=== PATIENT | male | born 1955 | race Caucasian/White ===

== ENCOUNTER → 2017-09-18 | Outpatient (CLI) | payer SELFPAY ==
[2017-09-18 13:13] LABS: Blood Urea Nitrogen 22 mg/dL (9-20)
--- NOTE | 2017-09-20 17:48 | MR ---
EXAMINATION TYPE: MR brain wo/w con DATE OF EXAM: 09/18/2017 COMPARISON: 02/06/2016 HISTORY: 62-year-old male Memory loss, dizziness, Dementia with behavioral disturbance TECHNIQUE: Multiplanar, multisequence images of the brain and brainstem were acquired before and aft er administration of 10 mL IV Gadavist. Diffusion weighted imaging is performed. FINDINGS: No evidence for acute infarction, hemorrhage, mass, mass effect, midline shift, herniation, effacemen t of basal cisterns, or extra-axial fluid collection. The ventricles and sulci are age-appropriate mild generalized cerebral volume loss. Major intracranial flow voids are intact. T2/FLAIR weighted sequences show [id number] scattered burden of bright white matter change in t he subcortical and deep white matter of both cerebral hemispheres. There has been slight interval inc rease in the number of white matter foci as compared to 02/06/2016. Approximately 25 foci in the right and approximately 20 foci on the left. There are perivascular spaces are seen throughout. Midline structures demonstrate normal morphology. The craniocervical junction is normal. Post contrast images demonstrate no evidence of pathologic enhancement. Dural venous sinuses are pat ent. The visualized sinuses are clear and the globes are intact. IMPRESSION: 1. No acute intracranial abnormality seen. Similar mild generalized atrophy. 2. Nonspecific, chronic T2 bright white matter change in both cerebral hemispheres with mild to moder ate overall burden. This shows slight interval progression from 02/06/2016 likely relating to chronic s mall vessel ischemic disease.
== END | disposition home or self-care (01) ==
LOC: RADMRIMAIN 12:36
PROVIDERS: ATTEND Family Medicine
DX: G31.9 Degenerative disease of nervous system, unspecified (principal); R90.89 Other abnormal findings on diagnostic imaging of central nervous system
CPT/HCPCS: 82565; 84520; 70553; 36415; A9581

== ENCOUNTER → 2017-10-10 | Outpatient (CLI) | payer SELFPAY ==
[2017-10-10 10:49] LABS: Prothrombin Time 9.9 sec (9.0-12.0)
[2017-10-10 11:18] LABS: T4, Free (Free Thyroxine) 1.12 ng/dL (0.78-2.19)
[2017-10-10 11:24] LABS: Partial Thromboplastin Time 21.3 sec (22.0-30.0)
[2017-10-10 16:47] LABS: Vitamin D 25 Hydroxy 21.6 ng/mL (30.0-100.0)
== END | disposition home or self-care (01) ==
LOC: LABWHC1 10:10
PROVIDERS: ATTEND Psychiatry & Neurology Neurology
DX: R41.3 Other amnesia (principal); R53.83 Other fatigue; R53.1 Weakness
CPT/HCPCS: 36415; 82306; 82550; 82607; 84207; 84439; 84443; 85610; 85652; 85730; 86038; 86592; 86618

== ENCOUNTER → 2019-12-21 | Outpatient (CLI) | payer MEDICARE ==
[2019-12-21 16:18] LABS: Albumin 4.5 g/dL (3.5-5.0); Calcium 9.7 mg/dL (8.4-10.2); Potassium 3.7 mmol/L (3.5-5.1); Total Bilirubin 0.5 mg/dL (0.2-1.3); Total Protein 7.5 g/dL (6.3-8.2)
--- NOTE | 2019-12-21 17:26 | CT ---
EXAMINATION TYPE: CT brain wo/w con DATE OF EXAM: 12/21/2019 COMPARISON: 02/28/2015 INDICATION: Frequent falls. DLP: 2220 mGycm, Automated exposure control for dose reduction was used. CONTRAST: None CT of the brain is performed utilizing 3 mm thick sections through the posterior fossa and 3 mm thick sections through the remaining calvarium. Study is performed within 24 hours of arrival to the hosp ital. No abnormal hyperdensity is present to suggest an acute intracranial hemorrhage. No mass lesion is evident. No acute infarcts are evident. Subtle deep white matter chronic appearing microvascular ischemic alarcon ges present. Ventricles and sulci are appropriate for the patient age. Paranasal sinuses and mastoid air cells within the [id number] are clear. IMPRESSIONS: 1. No acute intracranial process.
== END | disposition home or self-care (01) ==
LOC: RADCTMAIN 15:32
PROVIDERS: ATTEND Family Medicine
DX: R29.6 Repeated falls (principal)
CPT/HCPCS: 80053; 70470; 36415; Q9967

== ENCOUNTER → 2020-02-25 | Outpatient (CLI) | payer MEDICARE ==
--- NOTE | 2020-02-25 16:22 | US ---
EXAMINATION TYPE: US carotid duplex BILAT DATE OF EXAM: 02/25/2020 COMPARISON: NONE CLINICAL HISTORY: R42 Dizziness. EXAM MEASUREMENTS: RIGHT: Peak Systolic Velocity (PSV) cm/sec ----- Right CCA: 65.1 ----- Right ICA: 57.3 ----- Right ECA: 57.0 ICA/CCA ratio: 0.9 RIGHT: End Diastole cm/sec ----- Right CCA: 20.6 ----- Right ICA: 21.9 ----- Right ECA: 17.5 LEFT: Peak Systolic Velocity (PSV) cm/sec ----- Left CCA: 51.1 ----- Left ICA: 62.0 ----- Left ECA: 78.2 ICA/CCA ratio: 1.2 LEFT: End Diastole cm/sec ----- Left CCA: 20.6 ----- Left ICA: 28.6 ----- Left ECA: 26.7 VERTEBRALS (direction of flow): Right Vertebral: Antegrade Left Vertebral: Antegrade Rhythm: Normal Moderate atherosclerotic changes with no significant velocity elevations. IMPRESSION: No evidence for hemodynamically significant stenosis. Criteria for Assigning % of Stenosis / Diameter reduction (Estimation based on the indirect measurements of the internal carotid artery velocities (ICA PSV). 1. Normal (no stenosis)=ICA PSV < 125 cm/s: ratio < 2.0: ICA EDV<40 cm/s. 2. Less than 50% stenosis=ICA PSV < 125 cm/s: ratio < 2.0: ICA EDV<40 cm/s. 3. 50 to 69% stenosis=ICA PSV of 125 to 230 cm/s: ration 2.0 ? 4.0: ICA EDV 40-100 cm/s. 4. Greater than 70% stenosis to near occlusion= ICA PSV > 230 cm/s: ratio > 4.0: ICA EDV > 100 cm/s. 5. Near occlusion= ICA PSV velocities may be low or undetectable: variable ratio and ICA EDV. 6. Total occlusion=unable to detect flow.
== END | disposition home or self-care (01) ==
LOC: RADUSMAIN 14:50
PROVIDERS: ATTEND Family Medicine
DX: R42 Dizziness and giddiness (principal)
CPT/HCPCS: 93880

== ENCOUNTER 2020-09-11 19:39 | Inpatient (IN) | payer MEDICARE ==
[2020-09-11] MEDS ORDERED: ACETAMINOPHEN TAB 500 MG TAB PO STA (19:54)
[2020-09-11] MEDS ORDERED: DEXAMETHASONE SOD PHOSPHATE 10 MG/ML 1 ML VIAL IV STA (19:57)
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
[2020-09-11 20:20] LABS: Basophils % (A) 1 %; Eosinophils # (A) 0.1 k/uL (0-0.7); Eosinophils % (A) 2 %; HCT 40.2 % (39.0-53.0); Lymphocytes # (A) 0.6 k/uL (1.0-4.8); Lymphocytes % (A) 15 %; MCHC 34.8 g/dL (31.0-37.0); MCV 86.3 fL (80.0-100.0); Mean Platelet Volume 7.7; Monocytes # (A) 0.3 k/uL (0-1.0); Monocytes % (A) 7 %; Neutrophils # (A) 2.8 k/uL (1.3-7.7); Neutrophils % (A) 73 %; Platelet Count 366 k/uL (150-450); RBC 4.66 m/uL (4.30-5.90); RDW 13.2 % (11.5-15.5); WBC 3.9 k/uL (3.8-10.6)
[2020-09-11 20:35] LABS: ALT 28 U/L (4-49); AST 33 U/L (17-59); African American GFR (CKD) >90 (>60 ml/min/1.73 sqM); Albumin 3.4 g/dL (3.5-5.0); Alkaline Phosphatase 109 U/L (38-126); Anion Gap 9 mmol/L; Blood Urea Nitrogen 24 mg/dL (9-20); Calcium 8.8 mg/dL (8.4-10.2); Carbon Dioxide 27 mmol/L (22-30); Chloride 98 mmol/L (98-107); Glucose 312 mg/dL (74-99); Magnesium 1.9 mg/dL (1.6-2.3); Non-African American GFR(CKD) 90 (>60 ml/min/1.73 sqM); Potassium 3.6 mmol/L (3.5-5.1); Sodium 134 mmol/L (137-145); Total Bilirubin 0.7 mg/dL (0.2-1.3); Total Protein 6.5 g/dL (6.3-8.2)
[2020-09-11 20:43] LABS: INR 1.2 (<1.2); Partial Thromboplastin Time 22.5 sec (22.0-30.0); Prothrombin Time 12.8 sec (9.0-12.0)
[2020-09-11 20:50] LABS: D-Dimer 4.93 mg/L FEU (<0.60)
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
--- NOTE | 2020-09-11 22:04 | CT ---
EXAMINATION TYPE: CT chest angio for PE DATE OF EXAM: 09/11/2020 COMPARISON: None. HISTORY: Shortness of breath, +covid. CT DLP: 452.9 mGycm Automated exposure control for dose reduction was used. CONTRAST: CT Chest for pulmonary embolism performed with with IV Contrast, patient injected with 78ml mL of Iso anahi 300. FINDINGS: LUNGS: The lungs are grossly clear, there is no concerning parenchymal mass or nodule identified. T here is no pleural effusion or pneumothorax seen. Patchy bilateral airspace opacities are noted repr esenting multifocal pneumonia. The tracheobronchial tree is patent. MEDIASTINUM: There is satisfactory enhancement of the pulmonary artery and its branches, there is no CT evidence for pulmonary embolism. There are no greater than 1 cm hilar or mediastinal lymph nodes. No pericardial effusion is seen. OTHER: No additional significant abnormality is seen. IMPRESSION: Study is limited for evaluation of pulmonary embolism due to motion. No central or proxim al segmental filling defects are seen. Multifocal airspace opacities representing, multifocal viral p neumonia.
[2020-09-11] MEDS ORDERED: ONDANSETRON 4 MG/2 ML VIAL IVP PRN (22:25)
[2020-09-11] MEDS ORDERED: NALOXONE 0.4 MG/ML 1 ML VIAL IV PRN (22:25)
[2020-09-11] MEDS ORDERED: ACETAMINOPHEN TAB 325 MG TAB PO PRN (22:25)
[2020-09-11] MEDS ORDERED: HYDROcodone/APAP 10-325MG 1 EACH TAB PO PRN (22:28)
[2020-09-12 08:23] LABS: Glucose,Whole Blood 366 mg/dL (75-99)
[2020-09-12] MEDS: INSULIN ASPART (NovoLOG) 100 UNIT/ML VIAL SQ SCH ×4 (08:43→22:05)
[2020-09-12] MEDS: amLODIPine 10 MG TAB PO SCH (08:44)
[2020-09-12] MEDS: CITALOPRAM HYDROBROMIDE 20 MG TAB PO SCH (08:44)
[2020-09-12] MEDS: CHOLECALCIFEROL 25 MCG (1000 IU) TABLET PO SCH (08:44)
[2020-09-12] MEDS: metFORMIN 500 MG TAB PO SCH (08:45)
[2020-09-12] MEDS: DEXAMETHASONE SOD PHOSPHATE 10 MG/ML 1 ML VIAL IV SCH (08:45)
[2020-09-12] MEDS: diazePAM 5 MG TAB PO SCH ×3 (08:45→22:05)
[2020-09-12] MEDS: FUROSEMIDE 40 MG TAB PO SCH (08:45)
[2020-09-12] MEDS: ZINC SULFATE 220 MG CAP PO SCH (08:46)
[2020-09-12] MEDS ORDERED: ENOXAPARIN 40 MG/0.4 ML SYRINGE SQ SCH (09:00)
[2020-09-12] MEDS: traZODone HCL 100 MG TAB PO SCH ×2 (09:01→22:05)
[2020-09-12] MEDS: LISINOPRIL-HCTZ 20-12.5 MG 1 EACH TAB PO SCH (09:02)
[2020-09-12 12:14] LABS: Glucose,Whole Blood 401 mg/dL (75-99)
[2020-09-12 12:54] LABS: Glucose,Whole Blood 348 mg/dL (75-99)
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
[2020-09-12 17:34] LABS: Glucose,Whole Blood 289 mg/dL (75-99)
[2020-09-12] MEDS: AZITHROMYCIN 500 MG TAB PO SCH (17:53)
[2020-09-12 21:23] LABS: Glucose,Whole Blood 342 mg/dL (75-99)
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
[2020-09-12] MEDS: ESCITALOPRAM 10 MG TAB PO SCH (22:05)
[2020-09-12] MEDS: ENOXAPARIN 40 MG/0.4 ML SYRINGE SQ SCH (22:05)
--- NOTE | 2020-09-13 00:06 | CONS ---
CONSULTATION DATE OF SERVICE: 09/12/2020 REASON FOR CONSULTATION: Pneumonia. HISTORY OF PRESENT ILLNESS: The patient is a 65-year-old male whose is currently in the ICU undergoing treatment for COVID-19 infection. This patient apparently tested positive for COVID-19 last week. As the patient's was positive for it, the patient himself had no symptoms at that point. The patient was brought into the ER last night for evaluation of shortness of breath and a low-grade fever. The patient denies having any chest pain, shortness of breath on minimal exertion. The patient did have minimal cough, not bringing up any sputum. No URI symptoms. No nausea, no vomiting. No abdominal pain or diarrhea. On presentation to the hospital the patient did have a low- grade fever of 100.5. The patient was hypoxic with oxygen saturations of 87% on room air. The patient did have a normal white count with lymphopenia. He did have elevated D-dimer. Kidney function was normal. Liver enzymes were normal. CRP was 163. Procalcitonin 5.64. Bryan PCR came back negative. The patient did have a CT angiogram that was negative for PE and did have evidence of multifocal viral pneumonia. The patient has been admitted to the hospital. Infectious Disease was consulted for further management of antibiotic therapy. REVIEW OF SYSTEMS: Positive points have been mentioned in HPI. Rest of the systems are negative. PAST MEDICAL HISTORY: Coronary artery disease, diabetes mellitus, hypertension, hyperlipidemia. PAST SURGICAL HISTORY: Heart catheterization, left knee replacement, vasectomy. SOCIAL HISTORY: Remote history of smoking. Occasionally drinks. No drug use. FAMILY HISTORY: Father with history of Parkinson's disease. Mother with history of dementia. ALLERGIES: NO KNOWN DRUG ALLERGIES. MEDICATIONS: The patient is currently on Tylenol, Mcguffey, Norvasc, Rocephin, Zithromax, Celexa, dexamethasone, diazepam, Lovenox, Lexapro, Lasix, NovoLog, Glucophage, Narcan, Zofran, Toradol. PHYSICAL EXAMINATION: Blood pressure 107/74 with a pulse of 84. Temperature is 98.5, T-max 100.5. He is 90% on 3 L nasal cannula. General description is an elderly male lying in bed in no distress. No tachypnea or accessory muscle of respiration use. HEENT EXAMINATION: No pallor or scleral icterus. Oral mucosa membrane dry. NECK: Trachea is central. No thyromegaly. LUNGS: Unlabored breathing. Decreased intensity of breath sounds. No wheeze or crackle. HEART: S1, S2. Regular rate and rhythm. ABDOMEN: Soft. No tenderness. EXTREMITIES: No edema of the feet. SKIN EXAMINATION: No rash or mass palpable. Neurologically the patient is awake, alert, oriented x3. Mood and affect normal. LABS: Hemoglobin is 14, white count 3.9, BUN of 24, creatinine 0.86. CRP is elevated. report mentioned above. DIAGNOSTIC IMPRESSION AND PLAN: Patient admitted to hospital with increasing shortness of breath in this patient who did have a fever, hypoxemia with evidence of multifocal pneumonia in this patient whose is currently sick with COVID-19 infection, likely representing COVID-19; clinically suspicious for secondary bacterial pneumonia less likely but not entirely excluded in view of elevated procalcitonin. PLAN: 1. We will obtain sputum for Gram stain and culture and check urine for antigen. 2. The patient is currently covered with Rocephin and Zithromax; to continue. 3. Continue with Lovenox, dexamethasone and zinc. However, the patient will benefit from remdesivir. Will discuss further with the pulmonary team. 4. Will follow clinical condition and further adjust medication if needed. Thank you for this consultation. Will follow this patient along with you. MMHETALL / ROXANEN: [id number] /
[2020-09-13 05:32] LABS: Appearance,Urine Clear (Clear); Bilirubin,Urine Negative (Negative); Blood,Urine Negative (Negative); Color,Urine Yellow; Glucose,Urine (UA) 3+ (Negative); Ketones,Urine Negative (Negative); Leukocyte Esterase,Urine Negative (Negative); Nitrite,Urine Negative (Negative); Protein,Urine Trace (Negative); Specific Gravity,Urine 1.021 (1.001-1.035); Urobilinogen,Urine <2.0 mg/dL (<2.0)
[2020-09-13 07:28] LABS: Glucose,Whole Blood 384 mg/dL (75-99)
[2020-09-13] MEDS: INSULIN ASPART (NovoLOG) 100 UNIT/ML VIAL SQ SCH ×4 (08:09→20:43)
[2020-09-13] MEDS: LISINOPRIL-HCTZ 20-12.5 MG 1 EACH TAB PO SCH (08:10)
[2020-09-13] MEDS: traZODone HCL 100 MG TAB PO SCH ×2 (08:10→20:44)
[2020-09-13] MEDS: FUROSEMIDE 40 MG TAB PO SCH (08:10)
[2020-09-13] MEDS: ZINC SULFATE 220 MG CAP PO SCH (08:10)
[2020-09-13] MEDS: CHOLECALCIFEROL 25 MCG (1000 IU) TABLET PO SCH (08:11)
[2020-09-13] MEDS: amLODIPine 10 MG TAB PO SCH (08:11)
[2020-09-13] MEDS: diazePAM 5 MG TAB PO SCH ×3 (08:11→20:44)
[2020-09-13] MEDS: metFORMIN 500 MG TAB PO SCH (08:11)
[2020-09-13] MEDS: ENOXAPARIN 40 MG/0.4 ML SYRINGE SQ SCH ×2 (08:11→20:43)
[2020-09-13] MEDS: DEXAMETHASONE SOD PHOSPHATE 10 MG/ML 1 ML VIAL IV SCH (08:11)
[2020-09-13] MEDS: CITALOPRAM HYDROBROMIDE 20 MG TAB PO SCH (08:12)
[2020-09-13 11:10] LABS: Albumin 3.6 g/dL (3.80-4.90); Albumin/Globulin Ratio 1.5 (1.60-3.17); Anion Gap 11.6 mmol/L (4.00-12.00); BUN/Creat Ratio 32.67 Ratio (12.00-20.00); C Reactive Protein 6.4 mg/dL (0.0-0.8); Calcium 9.1 mg/dL (8.7-10.3); Carbon Dioxide 28.4 mmol/L (21.6-31.8); Globulin 2.4 g/dL (1.6-3.3); Non-African American GFR(CKD) 47.5 (60.0-200.0); Potassium 4.1 mmol/L (3.5-5.5); Total Bilirubin 0.4 mg/dL (0.3-1.2)
[2020-09-13 11:20] LABS: Ferritin 873.5 ng/mL (22.0-322.0)
[2020-09-13 11:45] LABS: Glucose,Whole Blood 403 mg/dL (75-99)
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
[2020-09-13 15:24] VITALS: BMI 31.0
--- NOTE | 2020-09-13 15:41 | US ---
EXAMINATION TYPE: US venous doppler duplex LE BI DATE OF EXAM: 09/13/2020 3:30 PM COMPARISON: NONE CLINICAL HISTORY 65-year-old male elevated D-dimer SIDE PERFORMED: Bilateral TECHNIQUE: The lower extremity deep venous system is examined utilizing real time linear array sonog kayleen with graded compression, doppler sonography and color-flow sonography. FINDINGS: VESSELS IMAGED: Common Femoral Vein Deep Femoral Vein Greater Saphenous Vein * Femoral Vein Popliteal Vein Small Saphenous Vein * Proximal Calf Veins (* superficial vessels) Right Leg: Negative for DVT Left Leg: Negative for DVT IMPRESSION: No evidence for DVT within the bilateral lower extremities imaged from the groin to the upper calves.
[2020-09-13 16:44] LABS: Glucose,Whole Blood 270 mg/dL (75-99)
[2020-09-13] MEDS: AZITHROMYCIN 500 MG TAB PO SCH (17:12)
[2020-09-13 20:26] LABS: Glucose,Whole Blood 237 mg/dL (75-99)
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
[2020-09-13] MEDS: ESCITALOPRAM 10 MG TAB PO SCH (20:43)
[2020-09-13] MEDS ORDERED: INSULIN DETEMIR (LEVEMIR) 100 UNIT/ML SYR SQ SCH (21:00)
--- NOTE | 2020-09-14 01:52 | PN ---
PROGRESS NOTE DATE OF SERVICE: 09/13/2020 REASON FOR FOLLOWUP: Pneumonia. INTERVAL HISTORY: The patient is currently afebrile. The patient is breathing more comfortably. The patient denies having any chest pain or shortness of breath. Occasional cough. No abdominal pain. No diarrhea. PHYSICAL EXAMINATION: Blood pressure 115/62 with a pulse of 69, temperature 98.6. He is 97% on 2 L nasal cannula. General description is an elderly male lying in bed in no distress. Respiratory system: Unlabored breathing with decreased intensity breath sounds. No wheeze. Heart S1, S2. Regular rate and rhythm. ABDOMEN: Soft, no tenderness. LABS: BUN of 49, creatinine 1.5. D. dimer 12.32. DIAGNOSTIC IMPRESSION/PLAN: Patient admitted to the hospital with increasing shortness of breath and cough with evidence of pneumonia. Patient seemed to have clinically responded. Currently on Rocephin and Zithromax, Dexamethasone and Lovenox to continue while monitoring clinical course closely. Continue supportive care. MMODL / IJN: [id number] /
[2020-09-14 06:54] LABS: Glucose,Whole Blood 254 mg/dL (75-99)
[2020-09-14] MEDS: ENOXAPARIN 40 MG/0.4 ML SYRINGE SQ SCH (09:22)
[2020-09-14] MEDS: DEXAMETHASONE SOD PHOSPHATE 10 MG/ML 1 ML VIAL IV SCH (09:22)
[2020-09-14] MEDS: metFORMIN 500 MG TAB PO SCH (09:22)
[2020-09-14] MEDS: FUROSEMIDE 40 MG TAB PO SCH (09:22)
[2020-09-14] MEDS: CHOLECALCIFEROL 25 MCG (1000 IU) TABLET PO SCH (09:23)
[2020-09-14] MEDS: INSULIN ASPART (NovoLOG) 100 UNIT/ML VIAL SQ SCH ×3 (09:23→17:27)
[2020-09-14] MEDS: diazePAM 5 MG TAB PO SCH ×2 (09:23→16:04)
[2020-09-14] MEDS: CITALOPRAM HYDROBROMIDE 20 MG TAB PO SCH (09:23)
[2020-09-14] MEDS: traZODone HCL 100 MG TAB PO SCH (09:23)
[2020-09-14] MEDS: amLODIPine 10 MG TAB PO SCH (09:23)
[2020-09-14] MEDS: LISINOPRIL-HCTZ 20-12.5 MG 1 EACH TAB PO SCH (09:23)
[2020-09-14] MEDS: ZINC SULFATE 220 MG CAP PO SCH (09:23)
[2020-09-14 09:58] VITALS: RESP 18
[2020-09-14 11:56] LABS: Glucose,Whole Blood 195 mg/dL (75-99)
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
[2020-09-14] MEDS: AZITHROMYCIN 500 MG TAB PO SCH (16:04)
[2020-09-14 16:56] LABS: Glucose,Whole Blood 316 mg/dL (75-99)
[2020-09-14 18:33] VITALS: BP 112/74; PULSE 89; TEMP 98
--- NOTE | 2020-09-14 20:02 | PN ---
PROGRESS NOTE DATE OF SERVICE: 09/14/2020 REASON FOR FOLLOWUP: Pneumonia. INTERVAL HISTORY: The patient is currently afebrile. The patient is feeling better, breathing comfortably. The patient denies having any chest pain or shortness of breath. Occasional cough. No abdominal pain or diarrhea. PHYSICAL EXAMINATION: Blood pressure 113/73 with a pulse of 76, temperature 98.2. He is 90% on 3 L nasal cannula. General description is an elderly male lying in bed in no distress. RESPIRATORY SYSTEM: Unlabored breathing with decreased breath sounds at the base. No wheeze. HEART: S1, S2. Regular rate and rhythm. ABDOMEN: Soft. No tenderness. LABS: No new labs have been obtained today. DIAGNOSTIC IMPRESSION AND PLAN: Patient presented to hospital with shortness of breath and cough in this patient who did have evidence of pneumonia with a recent outpatient COVID test positive. However, the test here has been negative. Being treated for possible pneumonia. On Rocephin and Zithromax hypoxic and needs to be monitored closely. Continue with supportive care. MMODL / IJN: [id number] /
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
== END 2020-09-14 19:09 | disposition left against medical advice (07) | DRG 177 ==
LOC: EC 19:39 → 4SSUR 23:22
PROVIDERS: ADMIT Hospitalist; ATTEND Hospitalist
DX: U07.1 COVID-19 (principal); J12.82 Pneumonia due to coronavirus disease 2019; J96.01 Acute respiratory failure with hypoxia; J15.9 Unspecified bacterial pneumonia; E11.65 Type 2 diabetes mellitus with hyperglycemia; D72.810 Lymphocytopenia; I25.10 Atherosclerotic heart disease of native coronary artery without angina pectoris; E78.5 Hyperlipidemia, unspecified; I10 Essential (primary) hypertension; H91.90 Unspecified hearing loss, unspecified ear; M51.36 Other intervertebral disc degeneration, lumbar region; M54.5 Low back pain; G89.29 Other chronic pain; M19.90 Unspecified osteoarthritis, unspecified site; F32.9 Major depressive disorder, single episode, unspecified; F41.9 Anxiety disorder, unspecified; Z98.890 Other specified postprocedural states; Z79.899 Other long term (current) drug therapy; Z87.891 Personal history of nicotine dependence; Z87.828 Personal history of other (healed) physical injury and trauma; Z82.0 Family history of epilepsy and other diseases of the nervous system; Z81.8 Family history of other mental and behavioral disorders; Z99.81 Dependence on supplemental oxygen; Z79.4 Long term (current) use of insulin
CPT/HCPCS: 36415; 71046; 71275; 80053; 81003; 82728; 83605; 83615; 83735; 84145; 85025; 85379; 85610; 85730; 86140; 87449; 87635; 93005; 93970; 96372; 96374; 99285

== ENCOUNTER → 2020-12-12 | Outpatient (CLI) | payer MEDICARE ==
--- NOTE | 2020-12-12 09:30 | CT ---
EXAMINATION TYPE: CT facial bones wo con DATE OF EXAM: 12/12/2020 COMPARISON: None HISTORY: 65-year-old male, R68.84, with left jaw pain CT DLP: 596.5 mGycm Automated exposure control for dose reduction was used. TECHNIQUE: CT scanning of the facial bones without contrast. Coronal and sagittal reconstructions per formed. FINDINGS: The submandibular and parotid glands appear satisfactory. Punctate calcifications in the left pelvis seen tonsils suggest sequela of prior infection. Mild mucosal thickening ethmoid air cells. Trace mucosal thickening floor of the left maxillary sinus . Slight leftward nasal septal deviation. Osteomeatal complexes are patent. No air-fluid levels in th e sinuses. Mastoid air cells and middle ear cavities are well pneumatized. Visualized intracranial structures show no gross adenopathy. The TMJs are intact. The patient is edentulous. No erosive change or acute or healing fracture or other specific bony abno rmality is identified with particular attention to the left side of the mandible. Prominent 6 mm submandibular space lymph node noted on either side. IMPRESSION: THE PATIENT IS EDENTULOUS. THERE IS MILD CHRONIC SINUS DISEASE INVOLVING THE ETHMOID AIR CELLS AND LE FT MAXILLARY SINUS. SLIGHT LEFTWARD NASAL SEPTAL DEVIATION. OTHERWISE, NO SPECIFIC ABNORMALITY SEEN.
== END | disposition home or self-care (01) ==
LOC: RADCTMAIN 06:59
PROVIDERS: ATTEND Family Medicine
DX: J32.8 Other chronic sinusitis (principal); J34.2 Deviated nasal septum
CPT/HCPCS: 70486

== ENCOUNTER 2020-12-19 11:07 | Emergency (ER) | payer MEDICARE ==
[2020-12-19 11:20] VITALS: BP 126/89; PULSE 92; RESP 18; TEMP 97.9
[2020-12-19] MEDS ORDERED: SODIUM CHLORIDE 0.9% 1,000 ML IV STA (11:55)
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
--- NOTE | 2020-12-19 12:38 | XR ---
EXAMINATION TYPE: XR ribs LT w pa chest xray DATE OF EXAM: 12/19/2020 CLINICAL HISTORY: Pain TECHNIQUE: Single frontal view of the chest and 4 views of the left ribs is obtained. COMPARISON: None FINDINGS: Coarsened interstitium. Limited inspiration heart size normal. No focal pneumonia or pneumo thorax. Arthropathy of the shoulders. Rib cage intact. IMPRESSION: 1. No acute displaced rib fracture. 2. Correlate for chronic interstitial lung disease.
[2020-12-19] MEDS ORDERED: ACET/COD 300 MG/30 MG STARTER PACK 6 TAB BTL PO STA (12:43)
== END 2020-12-19 12:57 | disposition home or self-care (01) ==
LOC: EC 11:07
DX: S20.212A Contusion of left front wall of thorax, initial encounter (principal); R10.9 Unspecified abdominal pain; I10 Essential (primary) hypertension; E11.9 Type 2 diabetes mellitus without complications; H91.90 Unspecified hearing loss, unspecified ear; Z87.891 Personal history of nicotine dependence; Z79.899 Other long term (current) drug therapy; Z79.4 Long term (current) use of insulin; W19.XXXA Unspecified fall, initial encounter
CPT/HCPCS: 99284

== ENCOUNTER → 2021-09-20 | Outpatient (CLI) | payer MEDICARE ==
[2021-09-20 11:04] LABS: Partial Thromboplastin Time 26.1 sec (22.0-30.0); Prothrombin Time 10.8 sec (9.0-12.0)
[2021-09-20 11:35] LABS: Appearance,Urine Clear (Clear); Bilirubin,Urine Negative (Negative); Blood,Urine Moderate (Negative); Color,Urine Yellow; Glucose,Urine (UA) Negative (Negative); Hyaline Casts,Urine 26 /lpf (0-2); Ketones,Urine Negative (Negative); Leukocyte Esterase,Urine Negative (Negative); Mucus,Urine Few /hpf; Nitrite,Urine Negative (Negative); PH, Urine 5.5 (5.0-8.0); Protein,Urine Trace (Negative); RBC,Urine 81 /hpf (0-5); Specific Gravity,Urine 1.034 (1.001-1.035); Squamous Epithelial Cell,Urine 1 /hpf (0-4); Urobilinogen,Urine <2.0 mg/dL (<2.0); WBC,Urine 3 /hpf (0-5)
[2021-09-20 15:26] LABS: HCT 45.1 % (39.6-50.0); HGB 14.6 g/dL (13.0-17.0); MCH 30.8 pg (27.0-32.0); MCHC 32.4 g/dL (32.0-37.0); MCV 95.1 fL (80.0-97.0); Mean Platelet Volume 10.8 fL (9.5-12.2); NRBC Per 100 WBC 0 /100 WBCS (0.0-0.0); Platelet Count 219 X 10*3/uL (140-440); RBC 4.74 X 10*6/uL (4.40-5.60); RDW 13.7 % (11.5-14.5); WBC 5.65 X 10*3/uL (4.50-10.00)
[2021-09-20 15:39] LABS: African American GFR (CKD) 71.6 (60.0-200.0); Albumin 4.4 g/dL (3.8-4.9); Albumin/Globulin Ratio 1.52 (1.60-3.17); Anion Gap 11.3 mmol/L (10.00-18.00); BUN/Creat Ratio 13.92 Ratio (12.00-20.00); Blood Urea Nitrogen 16.7 mg/dL (9.0-27.0); Calcium 9.6 mg/dL (8.7-10.3); Carbon Dioxide 22.7 mmol/L (20.0-27.5); Globulin 2.9 g/dL (1.6-3.3); Non-African American GFR(CKD) 61.8 (60.0-200.0); Potassium 4.2 mmol/L (3.5-5.5); Total Bilirubin 0.5 mg/dL (0.30-1.20); Total Protein 7.3 g/dL (6.2-8.2)
== END | disposition home or self-care (01) ==
LOC: LABPAT 09:54
PROVIDERS: ATTEND Orthopaedic Surgery
DX: Z01.812 Encounter for preprocedural laboratory examination (principal); M17.11 Unilateral primary osteoarthritis, right knee
CPT/HCPCS: 80053; 81001; 85027; 85610; 85730; 87070; 93005

== ENCOUNTER → 2021-09-20 | Outpatient (CLI) | payer MEDICARE | END | disposition home or self-care (01) | LOC: LABPAT 09:51 | PROVIDERS: ATTEND Orthopaedic Surgery | DX: Z53.9 Procedure and treatment not carried out, unspecified reason (principal); Z01.818 Encounter for other preprocedural examination ==

== ENCOUNTER → 2021-10-26 | Outpatient (CLI) | payer MEDICARE | END | disposition home or self-care (01) | LOC: LABPAT 11:41 | PROVIDERS: ATTEND Orthopaedic Surgery | DX: Z01.812 Encounter for preprocedural laboratory examination (principal) | CPT/HCPCS: 87070 ==

== ENCOUNTER 2021-11-05 10:50 | Day surgery (SDC) | payer MEDICARE ==
[2021-11-02 11:32] VITALS: BMI 34.0
[~2021-11-05 10:50] MED LIST: ACETAMINOPHEN TAB 500 MG TAB PO PRN; DEXAMETHASONE SOD PHOSPHATE 4 MG/ML 1 ML VIAL IV ONE; HYDROmorphone 0.5 MG/0.5 ML SYRINGE IVP PRN; LIDOCAINE 1% (10MG/ML) FOR IV START INTRADERMA PRN; MELOXICAM 7.5 MG TAB PO PRN; MIDAZOLAM 2 MG/2 ML VIAL IV PRN; ONDANSETRON 4 MG/2 ML VIAL IVP ONE; ONDANSETRON 4 MG/2 ML VIAL IVP PRN; TRANEXAMIC ACID IN NACL,ISO-OS 1,000 MG in SALINE 1 100ML.BAG IVPB PRN
[2021-11-05] MEDS: LACTATED RINGERS 1,000 ML IV SCH ×4 (11:16→20:55)
[2021-11-05 11:45] LABS: Glucose,Whole Blood 197 mg/dL (75-99)
[2021-11-05] MEDS ORDERED: fentaNYL (PF) 50 MCG/ML 2 ML AMP IVP ONE (12:20)
[2021-11-05] MEDS ORDERED: TRANEXAMIC ACID IN NACL,ISO-OS 1,000 MG/100 ML BAG ONE (12:41)
[2021-11-05] MEDS ORDERED: ROPIVACAINE 5 MG/ML 30 ML VIAL ONE (12:41)
[2021-11-05] MEDS ORDERED: MIDAZOLAM 2 MG/2 ML VIAL ONE (12:41)
[2021-11-05] MEDS ORDERED: PROPOFOL 10 MG/ML 20 ML VIAL IV ONE (12:41)
[2021-11-05] MEDS ORDERED: ceFAZolin 3,000 MG in SODIUM CHLORIDE 0.9% IRRIGATIO 3,000 ML IRRIGATION ONE (12:47)
[2021-11-05] MEDS ORDERED: NA PHOS,M-B/NA PHOS,DI-BA 133 ML ENEMA RECTAL PRN (13:15)
[2021-11-05] MEDS ORDERED: NALOXONE 0.4 MG/ML 1 ML VIAL IV PRN (13:15)
[2021-11-05] MEDS ORDERED: bisacodyL 10 MG SUPP RECTAL PRN (13:15)
[2021-11-05] MEDS ORDERED: diazePAM 5 MG TAB PO PRN (13:15)
[2021-11-05] MEDS ORDERED: hydrOXYzine pamoate 25 MG CAP PO PRN (13:15)
[2021-11-05] MEDS ORDERED: MAGNESIUM HYDROXIDE 2,400 MG/10 ML CUP PO PRN (13:15)
[2021-11-05] MEDS ORDERED: HYDROmorphone 0.5 MG/0.5 ML SYRINGE IVP PRN ×3 (13:15)
[2021-11-05] MEDS ORDERED: TEMAZEPAM 15 MG CAP PO PRN (13:15)
[2021-11-05] MEDS ORDERED: ACETAMINOPHEN TAB 325 MG TAB PO PRN (13:15)
[2021-11-05] MEDS ORDERED: traMADol 50 MG TAB PO PRN (13:15)
[2021-11-05] MEDS ORDERED: ONDANSETRON 4 MG/2 ML VIAL IVP PRN (13:15)
[2021-11-05] MEDS ORDERED: HYDROcodone/APAP 7.5-325MG 1 EACH TAB PO PRN (13:17)
--- NOTE | 2021-11-05 13:18 | P.ANPRN ---
Procedure Note - Anesthesia - Nerve Block Performed Right Adductor Canal Infusion Time Out Performed: Yes Date of Procedure: 11/05/21 Procedure Start Time: 12:23 Procedure Stop Time: 12:34 Location of Patient: PreOp Indication: Acute Post-Operative Pain, Dx/Pain Location (Right Knee), Requested by Surgeon Specifically requested for management of pain by DrErick: Ivan He Sedation Type: Sedate with meaningful contact maintained Preparation: Sterile Dressing Position: Supine Needle Types: Pajunk Needle Gauge: 18 Ultrasound used to visualize needle placement: Yes Ultrasound used to observe medication spread: Yes Injectate: 0.5% Ropivacaine (see comment for volume) (20 cc) Blood Aspirated: No Pain Paresthesia on Injection Noted: No Resistance on Injection: Normal Image Stored and Saved: Yes Events: Uneventful and Well Tolerated Right iPack Single Time Out Performed: Yes Date of Procedure: 11/05/21 Procedure Start Time: 12:35 Procedure Stop Time: 12:41 Location of Patient: PreOp Indication: Acute Post-Operative Pain, Dx/Pain Location (Right Knee), Requested by Surgeon Specifically requested for management of pain by DrErick: Ivan He Sedation Type: Sedate with meaningful contact maintained Preparation: Sterile Prep Position: Left Lateral Catheter: None Needle Types: Pajunk Needle Gauge: 21 Ultrasound used to visualize needle placement: Yes Ultrasound used to observe medication spread: Yes Injectate: 0.5% Ropivacaine (see comment for volume) (20 cc) Blood Aspirated: No Pain Paresthesia on Injection Noted: No Resistance on Injection: Normal Image Stored and Saved: Yes Events: Uneventful and Well Tolerated
--- NOTE | 2021-11-05 14:17 | P.OP ---
Date of Procedure: 11/05/21 Procedure(s) Performed: PREOPERATIVE DIAGNOSIS: Right knee severe osteoarthritis with genu varum POSTOPERATIVE DIAGNOSIS: Right knee severe osteoarthritis with genu varum OPERATION: Right knee cemented total replacement arthroplasty. ANESTHESIA: Spinal and regional (ACB and IPAC blocks) ESTIMATED BLOOD LOSS: 100 ml. WEB SEARCH EVALUATOR: Nicanor Guerrero PA-C (assistance with: patient positioning, retraction, exposure, hemostasis, leg positioning, implantation, irrigation, closure, dressing) COMPLICATIONS: None apparent. COMPONENTS IMPLANTED: Persona system from [employer] INDICATIONS: Demetris is a 66 year old male with a history of right knee osteoarthritis. The patient's knee is end-stage, and conservative management has failed. The operation of knee replacement has been discussed at length in the office, as well as potential risks and complications. These are inclusive of, but not limited to: bleeding, infection, scarring, discomfort, blood vessel and nerve damage, need for further surgery, failure to relieve symptoms, persistence, recurrence, or worsening of problems, loosening, dislocation, wear, blood clot, pulmonary embolism, , gait dysfunction, stiffness, and other risks as discussed in the office. The patient elects to proceed and the consent form has been signed. PROCEDURE: The patient was taken to the operating room and positioned on the operating room table in the supine position. Anesthesia was initiated. Care was taken to make sure that all pressure points were adequately padded. The operative lower extremity was prepped and draped in the usual aseptic fashion using ChloraPrep. Ioban drape was used for the case and the patient received intravenous antibiotics within one hour of the incision. A pneumotourniquet and leg hernandez were used for the case. The limb was exsanguinated with an Esmarch bandage and the tourniquet was inflated to 300 mmHg. Time-out was called confirming the patient's identity, side, procedure and administration of antibiotics and tranexamic acid. The incision was then created midline directly over the knee, carried down thr ough skin and into the subcutaneous tissues and down to fascia. Full thickness subcutaneous medial flap was developed. Medial parapatellar arthrotomy was performed and the interior of the knee was inspected. There was end-stage osteoarthritis of the knee with a mild to moderate genu varum type deformity. The fat pad was excised and proximal medial release on the tibia was completed using meticulous dissection and a curved osteotome. The anterior cruciate ligament was taken down. Note was made of significant attrition of the anterior and significant degenerative appearance of the cruciate ligaments. The exposure was excellent. The knee was flexed 90 degrees and the patella was everted. A spot was chosen on the femur approximately 1 cm anterior to the posterior cruciate ligament insertion and an intramedullary hole was created within the femur. The intramedullary guide was then set to 5 degrees of valgus. The distal cutting block was attached and pinned into position. An appropriate amount of distal femoral resection was set. The oscillating saw was then used to make the distal femoral cut. This cut was confirmed to be flat with the flat end of an osteotome. The retractors were placed around the tibia and the tibial surface was addressed. The angle and depth of resection was adjusted using an extramedullary cutting guide. The guide had a built-in 3 degree posterior slope cut. Once the cutting guide was adjusted appropriately and in line with the axis of the tibia and confirmed to be in good position in relation to the second metatarsal and transmalleolar axis, the tibial cut was then created with protection of the posterior neurovascular structures and the collateral ligaments. The tibial cut surface was removed and sized. Femoral sizing was then accomplished using anterior referencing. Care was taken to analyze the posterior condyles for signs of deficiency or severe wear, and adjustments to the guide were made, as appropriate. 3 degree external rotation pins were placed as indicated by the combined assessment of the transepicondylar axis and Whitesides line. The cutting jig for the femur was applied to these pins. The planned cuts were further analyzed prior to performing them with the oscillating saw. No femoral notching was produced. Bone fragments were removed and the cut surfaces were finished, as necessary, with a reciprocating saw. Spacer block technique was then used to confirm that the flexion and extension gaps were equal. Soft tissue releases and adjustment of the tibial and/or femoral cuts were made, as necessary, until the gaps were equal. This included release of the posterior cruciate ligament, which was excessively tight in this patient. The femur was then further finished for a posterior cruciate ligament substituting component. Patellar resurfacing was performed using a reamer. The size of the required patellar component was estimated and the patellar surface was then reamed down to a residual thickness which would recreate the coquille thickness with the component. The exact placement of the patellar component was adjusted for position based on preoperative x-rays and intraoperative findings. The trial components were inserted. The tibial tray was allowed to self center and the patella was noted to track very well. The position of the tibial component was marked and the tibia was then finished for a stemmed tibial component. Cement was mixed on the back table and applied to the final components. Trial components were removed and the cut surfaces of the bone were pulse lavaged thoroughly and dried. Cement was then applied to the tibial surface and pressurized into the surface using finger pressurization technique. The tibial component was then applied and excess cement was removed after it was impacted securely and noted to be flush with the cut surface. In similar fashion, the cement was applied to the cut femoral surface, pressurized in using finger pressurization and the component was impacted into place. Excess cement was removed. The polyethylene spacer was then implanted and locked into position. The patellar component was then applied in similar technique and a patellar clamp was used to hold the patella in place as the cement hardened. Once the cement had fully hardened, the knee was reinspected. Any other cement extrusion was removed and final kinematic testing showed range of motion from 0 to 130 degrees with excellent stability, both medially and laterally and appropriate alignment of the leg. Patellar tracking was excellent. The knee was then thoroughly pulse lavaged with normal saline. The tourniquet was deflated and hemostasis was obtained with electrocautery and IV tranexamic acid, 1 g given at the start of the operation and 1 g at the start of closure. Closure was with #2 Ethibond in the fascia/capsule and supplemented with #2 Quill, 2-0 Vicryl suture was used for the subcutaneous tissues and 3-0 Quill for the skin. Dermabond/Steri-Strips were then applied. A lightly compressive dressing was applied using Webril and an Beni wrap. The patient was then transferred to stretcher and taken to the recovery room in stable condition. Sponge and needle counts were correct.
[2021-11-05] MEDS ORDERED: ROPIVACAINE 0.2%-NS ON-Q PUMP 2 MG/ML EACH MISCELLANE ONE (15:07)
--- NOTE | 2021-11-05 15:19 | XR ---
EXAMINATION TYPE: XR knee limited RT DATE OF EXAM: 11/05/2021 COMPARISON: NONE TECHNIQUE: Two views submitted HISTORY: Post op FINDINGS: There is a prosthetic knee in near anatomic alignment. There is soft tissue edema and emphysema. IMPRESSION: 1. Postoperative change. Appears in near-anatomic alignment
[2021-11-05 20:17] LABS: Glucose,Whole Blood 205 mg/dL (75-99)
[2021-11-05 20:40] VITALS: RESP 18; TEMP 97.7
[2021-11-05] MEDS: HYDROcodone/APAP 7.5-325MG 1 EACH TAB PO PRN (20:56)
[2021-11-05] MEDS ORDERED: SENNOSIDES-DOCUSATE SODIUM 1 EACH TAB PO SCH (21:00)
[2021-11-06] MEDS: HYDROcodone/APAP 7.5-325MG 1 EACH TAB PO PRN ×2 (03:49→12:54)
[2021-11-06 04:19] VITALS: BP 126/71; PULSE 72
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
[2021-11-06 07:28] LABS: Glucose,Whole Blood 231 mg/dL (75-99)
--- NOTE | 2021-11-06 07:45 | P.PN ---
Progress Note - Text Progress Note Date: 11/06/21 Postoperative day # 1 status post total knee arthroplasty, on adductor canal perineural catheter placed for postoperative analgesia. Ropivacaine 0.2% 8 mL per hour through ON-Q pump continuous infusion. Pain is well controlled. On visual analog scale 3/10 Patient is taking PRN oral pain medications. Catheter site: Looks Ok. There is no erythema or tenderness. Continue with the current pain management plan and will follow.
[2021-11-06] MEDS ORDERED: lisinopriL 10 MG TAB PO SCH (09:00)
[2021-11-06] MEDS ORDERED: INSULIN DETEMIR (LEVEMIR) 100 UNIT/ML SYR SQ SCH (09:00)
[2021-11-06] MEDS ORDERED: amLODIPine 10 MG TAB PO SCH (09:00)
[2021-11-06] MEDS: INSULIN ASPART (NovoLOG) 100 UNIT/ML VIAL SQ SCH ×2 (09:31→12:49)
--- NOTE | 2021-11-06 10:01 | P.DS ---
Providers Expected date of discharge: 11/06/21 Attending physician: Douglas Daily Consults: 11/05/21 13:15 Consult Physician Routine Consulting Provider: Eileen Mares Consult Reason/Comments: post op medical management Do you want consulting provider notified?: Yes Primary care physician: Morgan Hoffman MD - Discharge Diagnosis(es) (1) Osteoarthritis of right knee Current Visit: Yes Status: Acute (2) S/P total knee arthroplasty Current Visit: Yes Status: Acute Hospital Course: This is a 66-year-old male with known history of degenerative arthritis of the right knee. The patient presented for evaluation as an outpatient. After discussion and consideration patient elects to proceed with total knee arthroplasty. The patient is seen preoperatively by Dr. Daily and medically cleared for surgery by their primary care physician. Patient is admitted to [facility] on 11/05/2021 for total knee arthroplasty. The procedure is performed without complication or sequelae. The patient is doing well postoperatively. Labs and vital signs are stable on day of discharge. On day of discharge patient's knee incision is healing well. There is minimal erythema. There is no drainage noted at this time. There is minimal soft tissue swelling to the knee. Patient has full foot and ankle motion without difficulty or pain. Calf is soft and nontender to palpation. Neurovascular status to the right lower extremity is intact. Patient is discharged home in good condition. Patient will receive a hinged knee brace for the right lower extremity prior to discharge home. Please see med rec for accurate list of home medications. Plan - Discharge Summary Discharge Rx Participant: No New Discharge Prescriptions: New Ondansetron Odt [Zofran Odt] 1 tab PO Q8HR PRN #10 tab PRN Reason: Nausea HYDROcodone/APAP 7.5-325MG [[place] 7.5-325] 1 - 2 tab PO Q6H PRN #32 tab PRN Reason: Pain Sennosides [Senokot] 2 tab PO DAILY PRN #60 tablet PRN Reason: Constipation Continue amLODIPine BESYLATE [Norvasc] 10 mg PO DAILY Insulin Glargine,Hum.rec.anlog [Lantus Solostar Pen] 20 unit SQ QAM Simvastatin 40 mg PO HS Lisinopril [Zestril] 10 mg PO DAILY Rivaroxaban [Xarelto] 2.5 mg PO BID traZODone HCL [Desyrel] 100 mg PO HS Discharge Medication List amLODIPine BESYLATE [Norvasc] 10 mg PO DAILY 11/11/13 [History] Insulin Glargine,Hum.rec.anlog [Lantus Solostar Pen] 20 unit SQ QAM 09/11/20 [History] Simvastatin 40 mg PO HS 09/11/20 [History] Lisinopril [Zestril] 10 mg PO DAILY 11/02/21 [History] Rivaroxaban [Xarelto] 2.5 mg PO BID 11/02/21 [History] traZODone HCL [Desyrel] 100 mg PO HS 11/02/21 [History] HYDROcodone/APAP 7.5-325MG [[place] 7.5-325] 1 - 2 tab PO Q6H PRN #32 tab 11/06/21 [Rx] Ondansetron Odt [Zofran Odt] 1 tab PO Q8HR PRN #10 tab 11/06/21 [Rx] Sennosides [Senokot] 2 tab PO DAILY PRN #60 tablet 11/06/21 [Rx] Follow up Appointment(s)/Referral(s): Morgan Hoffman MD [Primary Care Provider] - 1 Week (for review of blood sugars) Douglas Daily MD [STAFF PHYSICIAN] - 2 Weeks Ata Zabala [NON-STAFF] - As Needed (hinged knee brace ) Activity/Diet/Wound Care/Special Instructions: Weightbearing as tolerated with a walker and hinged knee brace. Leave dressing intact. Dressing may be removed by home care nurse or by patient in 10 days. May shower with initial dressing intact and after removal. If dressing become saturated, please remove. Recommend use of compression stockings daily until follow up to help prevent swelling and blood clots. May remove at night before sleeping. Please resume Xarelto. Please follow up with [facility] and call with any questions or concerns, . Check Blood sugars twice a day and make a log for your primary and follow with Dr. Hoffman's office next week. Discharge Disposition: HOME WITH HOME HEALTH SERVICES
[2021-11-06 10:28] LABS: Basophils # (A) 0.02 X 10*3/uL (0.00-0.10); Basophils % (A) 0.2 %; Eosinophils # (A) 0.01 X 10*3/uL (0.04-0.35); Eosinophils % (A) 0.1 %; HCT 41.7 % (39.6-50.0); HGB 13.3 g/dL (13.0-17.0); Immature Grans, Automated 0.4 %; Lymphocytes # (A) 1.58 X 10*3/uL (0.90-5.00); Lymphocytes % (A) 14.2 %; MCH 29.6 pg (27.0-32.0); MCHC 31.9 g/dL (32.0-37.0); MCV 92.7 fL (80.0-97.0); Mean Platelet Volume 10.8 fL (9.5-12.2); Monocytes # (A) 1.08 X 10*3/uL (0.20-1.00); Monocytes % (A) 9.7 %; NRBC Per 100 WBC 0 /100 WBCS (0.0-0.0); Neutrophils # (A) 8.38 X 10*3/uL (1.80-7.70); Neutrophils % (A) 75.4 %; Platelet Count 170 X 10*3/uL (140-440); RDW 12.9 % (11.5-14.5); WBC 11.12 X 10*3/uL (4.50-10.00)
[2021-11-06 10:32] LABS: African American GFR (CKD) 73.1 (60.0-200.0); Albumin 3.9 g/dL (3.8-4.9); Albumin/Globulin Ratio 1.77 (1.60-3.17); Anion Gap 10.7 mmol/L (10.00-18.00); BUN/Creat Ratio 15.85 Ratio (12.00-20.00); Blood Urea Nitrogen 18.7 mg/dL (9.0-27.0); Calcium 8.8 mg/dL (8.7-10.3); Globulin 2.2 g/dL (1.6-3.3); Potassium 4.6 mmol/L (3.5-5.5); Total Bilirubin 0.5 mg/dL (0.30-1.20)
[2021-11-06] MEDS ORDERED: MULTIVITAMINS, THERA 1 EACH TAB PO SCH (12:00)
[2021-11-06 12:12] LABS: Glucose,Whole Blood 210 mg/dL (75-99)
[2021-11-06] MEDS: LACTATED RINGERS 1,000 ML IV SCH (12:52)
[2021-11-06] MEDS ORDERED: ATORVASTATIN 20 MG TAB PO SCH (21:00)
== END 2021-11-06 17:14 | disposition home or self-care (01) ==
LOC: OR 10:50 → 5NMEDONC 14:32 → OR 11-06 17:14
PROVIDERS: ATTEND Orthopaedic Surgery
DX: M17.11 Unilateral primary osteoarthritis, right knee (principal); M21.161 Varus deformity, not elsewhere classified, right knee; E78.00 Pure hypercholesterolemia, unspecified; E78.5 Hyperlipidemia, unspecified; I25.10 Atherosclerotic heart disease of native coronary artery without angina pectoris; I12.9 Hypertensive chronic kidney disease with stage 1 through stage 4 chronic kidney disease, or unspecified chronic kidney disease; E11.22 Type 2 diabetes mellitus with diabetic chronic kidney disease; E11.65 Type 2 diabetes mellitus with hyperglycemia; N18.30 Chronic kidney disease, stage 3 unspecified; I20.9 Angina pectoris, unspecified; E11.42 Type 2 diabetes mellitus with diabetic polyneuropathy; E55.9 Vitamin D deficiency, unspecified; H91.90 Unspecified hearing loss, unspecified ear; F32.A Depression, unspecified; M10.9 Gout, unspecified; Z87.442 Personal history of urinary calculi; I77.6 Arteritis, unspecified; Z98.52 Vasectomy status; Z98.890 Other specified postprocedural states; Z87.891 Personal history of nicotine dependence; Z83.3 Family history of diabetes mellitus; Z82.49 Family history of ischemic heart disease and other diseases of the circulatory system; F41.9 Anxiety disorder, unspecified; G47.00 Insomnia, unspecified; J30.9 Allergic rhinitis, unspecified; Z79.01 Long term (current) use of anticoagulants; Z79.4 Long term (current) use of insulin; Z79.899 Other long term (current) drug therapy
CPT/HCPCS: 94760; 97116; 97162; 64999; 64448; 76942; 80053; 85025; 88300; 73560; 27447; C1713; C1776; J2250; J1100; J0690 ×3; J2405; J3010; J1170; J2795

== ENCOUNTER 2022-06-23 10:10 | Emergency (ER) | payer MEDICARE ==
[2022-06-23 10:17] VITALS: RESP 16; TEMP 98
--- NOTE | 2022-06-23 10:58 | XR ---
EXAMINATION TYPE: XR wrist complete RT DATE OF EXAM: 06/23/2022 10:35 AM INDICATION: Patient age:Male; 66 years old; Reason for study: pain fall; COMPARISON: None TECHNIQUE: right wrist was examined in the. Frontal, lateral, and oblique. FINDINGS: Comminuted right distal radius fracture with intra-articular extension. There is mild posterior displ acement of one of the fragments. Left comminuted ulnar styloid process fracture. There is soft tissue swelling. IMPRESSION: 1. Comminuted right distal radius intra-articular fracture with mild dorsal displacement of one of t he fragments seen on lateral view. 2. Comminuted right ulnar stylet depressed fracture.
[2022-06-23] MEDS ORDERED: MORPHINE SULFATE 2 MG/ML SYRINGE IM STA (11:13)
--- NOTE | 2022-06-23 12:07 | CT ---
EXAMINATION TYPE: CT brain cspine wo con CT DLP: 1518.4. mGycm, Automated exposure control for dose reduction was used. DATE OF EXAM: 06/23/2022 11:50 AM COMPARISON: 12/21/2019. CLINICAL INDICATION:Male, 66 years old with history of fall on blood thinners; fall on blood thinners . TECHNIQUE: Brain: Multiple axial CT images of the brain were obtained without IV contrast. Cspine: Axial CT images from the skull base to the inferior aspect of T2 we obtained without intraven ous contrast. Coronal and sagittal reformatted images were also reviewed. FINDINGS: Brain: Extra-axial spaces: No abnormal extra-axial fluid collections. Ventricular system: Within normal limits Cerebral parenchyma: No acute intraparenchymal hemorrhage or mass effect. The hair-white junction is well differentiated. Cerebellum: Unremarkable. Mass effect: No evidence of midline shift. Intracranial vasculature: Atherosclerotic calcifications of the intracranial vessels. Soft tissues: Normal. Calvarium/osseous structures: No depressed skull fracture. Paranasal sinuses and mastoid air cells: Clear. Visualized orbits: Bilateral aphakia Cervical spine: Fracture: None. Osseous structures: Multilevel degenerative disc disease changes with endplate spurring and disc oste ophyte complex's. Vertebral alignment: Within normal limits. Spinal canal/Neural Foramina: No evidence of significant spinal canal narrowing. Facet joint uncovert ebral joint arthropathy scattered throughout the cervical spine with varying degrees of neural forami nal stenosis. Neck soft tissues: Prevertebral soft tissues are within normal limits. Other: The airway is patent. The lung apices are clear. IMPRESSION: 1. No acute intracranial process. 2. No evidence of cervical spine fracture. 3. Mild multilevel degenerative disc disease.
[2022-06-23 12:19] VITALS: BP 158/89; PULSE 78
[2022-06-23] MEDS ORDERED: ACET/COD 300 MG/30 MG STARTER PACK 6 TAB BTL PO STA (12:19)
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
== END 2022-06-23 12:37 | disposition home or self-care (01) ==
LOC: EC 10:10
DX: S52.91XA Unspecified fracture of right forearm, initial encounter for closed fracture (principal); S52.201A Unspecified fracture of shaft of right ulna, initial encounter for closed fracture; I10 Essential (primary) hypertension; I25.10 Atherosclerotic heart disease of native coronary artery without angina pectoris; E11.9 Type 2 diabetes mellitus without complications; E78.5 Hyperlipidemia, unspecified; F41.9 Anxiety disorder, unspecified; F32.A Depression, unspecified; Z87.891 Personal history of nicotine dependence; Z79.4 Long term (current) use of insulin; Z79.899 Other long term (current) drug therapy; W00.0XXA Fall on same level due to ice and snow, initial encounter
CPT/HCPCS: 73110; 72125; 70450; 99284; 96372; J2270

== ENCOUNTER → 2023-05-01 | Day surgery (SDC) | payer MEDICARE ==
[2023-04-28 15:41] VITALS: BMI 33.3
[~2023-05-01] MED LIST changes: -ACETAMINOPHEN TAB 500 MG TAB PO PRN; +GLYCOPYRROLATE 0.2 MG/ML 2 ML VIAL ONE; -HYDROmorphone 0.5 MG/0.5 ML SYRINGE IVP PRN; +LACTATED RINGERS 1,000 ML IV ONE; +LACTATED RINGERS 1,000 ML IV SCH; -LIDOCAINE 1% (10MG/ML) FOR IV START INTRADERMA PRN; +LIDOCAINE 1% INJ 10MG/ML (20 ML MDV) ONE; -MELOXICAM 7.5 MG TAB PO PRN; +MEPERIDINE 50 MG/ML SYRINGE IVP ONE; -MIDAZOLAM 2 MG/2 ML VIAL IV PRN; +MIDAZOLAM 2 MG/2 ML VIAL IVP ONE; +MIDAZOLAM 2 MG/2 ML VIAL ONE; +NEOSTIGMINE 1 MG/ML 10 ML VIAL ONE; -ONDANSETRON 4 MG/2 ML VIAL IVP PRN; +PHENYLEPHRINE-0.9% NACL SYG 1,000 MCG/10 ML SYRINGE ONE; +PROPOFOL 10 MG/ML 20 ML VIAL IV ONE; +ROCURONIUM 10 MG/ML (5 ML VIAL) IV ONE; +SUCCINYLCHOLINE CHLORIDE 200 MG/10 ML VIAL IV ONE; -TRANEXAMIC ACID IN NACL,ISO-OS 1,000 MG in SALINE 1 100ML.BAG IVPB PRN; +fentaNYL (PF) 50 MCG/ML 2 ML AMP ONE
[2023-05-01 15:53] LABS: Glucose,Whole Blood 171 mg/dL (70-110)
--- NOTE | 2023-05-01 16:15 | P.HPIHPCON ---
History of Present Illness H&P Date: 05/01/23 Chief Complaint: Bladder mass, gross hematuria This is a 67-year-old male with history of gross hematuria, underwent a cystoscopy that showed a mass along the bladder dome, discussed with him given this finding I recommend proceeding with transuetheral resection of a bladder tumor. Aware the risk which includes but not limited to bleeding, infection, bladder perforation. Risk of anesthesia was also discussed. He understood all the risk and agreed to proceed a Consent for Procedure: I have explained the operation/procedure to the patient, including the risks, benefits, side effects, alternative therapies (including not receiving the proposed treatment or service), the likelihood of the patient achieving his/her goals, and potential recuperation problems for the procedure/sedation/analgesia, as well as any blood products, if indicated. I also explained to the patient the risks, benefits and side effects of the alternatives, as well as the risks related to not receiving the proposed procedure, care, treatment, or services. Past Medical History Past Medical History: Coronary Artery Disease (CAD), Chest Pain / Angina, Dementia, Diabetes Mellitus, Hearing Disorder / Deafness, Hyperlipidemia, Hypertension, Musculoskeletal Disorder Additional Past Medical History / Comment(s): CHRONIC BACK PAIN History of Any Multi-Drug Resistant Organisms: None Reported Past Surgical History: Heart Catheterization, Orthopedic Surgery Additional Past Surgical History / Comment(s): LT KNEE ARTHROSCOPY, lumbar epidural injection, vasectomy Past Anesthesia/Blood Transfusion Reactions: No Reported Reaction Additional Psychological History / Comment(s): . 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 - Past Family History Father Family Medical History: Musculoskeletal Disorder, Neurologic Disorder Additional Family Medical History / Comment(s): Father had parkinsons. He is . Mother Family Medical History: Dementia Additional Family Medical History / Comment(s): Mother is . Medications and Allergies Home Medications Medication Instructions Recorded Confirmed Type amLODIPine BESYLATE [Norvasc] 10 mg PO DAILY 11/11/13 05/01/23 History Simvastatin 40 mg PO HS 09/11/20 05/01/23 History lisinopriL [Zestril] 10 mg PO DAILY 11/02/21 05/01/23 History traZODone HCL [Desyrel] 100 mg PO HS 11/02/21 05/01/23 History Aspirin [Adult Low Dose Aspirin EC] 81 mg PO DAILY 04/28/23 05/01/23 History Insulin Degludec [Tresiba] 19 units SQ DAILY 04/28/23 05/01/23 History Allergies Allergy/AdvReac Type Severity Reaction Status Date / Time No Known Allergies Allergy Verified 05/01/23 15:47 Surgical - Exam Vital Signs Temp Pulse Resp BP Pulse Ox 97.1 F L 76 16 131/69 96 05/01/23 15:45 05/01/23 15:45 05/01/23 15:45 05/01/23 15:45 05/01/23 15:45 - General no distress, no pain - Eyes normal ocular movement, no pale - ENT normal nares, normal mucosa - Respiratory normal expansion, normal respiratory effort - Abdomen Abdomen: soft, non tender - Psychiatric oriented to time, oriented to person, oriented to place Results - Labs Abnormal Lab Results - Last 24 Hours (Table) 05/01/23 Range/Units 15:51 POC Glucose (mg/dL) 171 H (70-110) mg/dL Assessment and Plan Assessment: OR for TURBT
--- NOTE | 2023-05-01 17:17 | P.OP ---
Date of Procedure: 05/01/23 Preoperative Diagnosis: Bladder mass, gross hematuria Postoperative Diagnosis: Same Procedure(s) Performed: TURBT( medium), clot evacuation Implants: none Anesthesia: BALTAZARA Surgeon: Guille Greer Estimated Blood Loss (ml): 25 Pathology: other (bladder mass) Condition: stable Disposition: PACU Indications for Procedure: This is a 67-year-old male with history of gross hematuria, underwent a cystoscopy that showed a mass along the bladder dome, discussed with him given this finding I recommend proceeding with transuetheral resection of a bladder tumor. Aware the risk which includes but not limited to bleeding, infection, bladder perforation. Risk of anesthesia was also discussed. He understood all the risk and agreed to proceed. Operative Findings: 50 cc of clot 3 cm bladder dome mass Description of Procedure: Patient brought to the operating room, general anesthesia was induced. He was prepped and draped in sterile fashion and placed in dorsal lithotomy position. Cystoscope fitted 25-Liberian sheath was inserted per urethra, cystoscopy was performed which showed an organized clot in the bladder and a tumor along the bladder dome, prostate was moderately enlarged and obstructive. I attempted to irrigate the clot but was unsuccessful. At this time using the resectoscope the clot was resected down and irrigated out. At this time attention was carried to the bladder tumor along the dome, using the bipolar resectoscope the tumor was resected down to muscle, total area of resection was 3 cm. Point of bleeding was controlled with cautery.. All tumor specimen was irrigated out. Repeat cystoscopy showed no evidence of bleeding or bladder perforation. Patient tolerated procedure well was taken recovery in stable condition
[2023-05-01 17:22] VITALS: TEMP 96.9
[2023-05-01] MEDS: HYDROmorphone 0.5 MG/0.5 ML SYRINGE IVP PRN ×2 (17:31→17:39)
[2023-05-01 17:53] LABS: Glucose,Whole Blood 146 mg/dL (70-110)
[2023-05-01 19:29] VITALS: RESP 16
[2023-05-01 20:23] VITALS: BP 114/70; PULSE 71
== END ==
LOC: OR 14:41
PROVIDERS: ATTEND Urology
DX: C67.9 Malignant neoplasm of bladder, unspecified (principal); I25.10 Atherosclerotic heart disease of native coronary artery without angina pectoris; E11.9 Type 2 diabetes mellitus without complications; I10 Essential (primary) hypertension; E78.5 Hyperlipidemia, unspecified; G89.29 Other chronic pain; Z95.1 Presence of aortocoronary bypass graft; Z98.890 Other specified postprocedural states; Z79.82 Long term (current) use of aspirin; Z79.899 Other long term (current) drug therapy
CPT/HCPCS: 52235; 88307; J2250; J0330; J2710; J2175; J0690; J2405; J2001; J3010; J2704; J1170; J2371

== ENCOUNTER → 2023-05-12 | Outpatient (CLI) | payer MEDICARE ==
[2023-05-12 13:58] LABS: African American GFR (CKD) 77 (>60 ml/min/1.73 sqM); Blood Urea Nitrogen 28 mg/dL (9-20); Non-African American GFR(CKD) 67 (>60 ml/min/1.73 sqM)
--- NOTE | 2023-05-13 11:10 | CT ---
EXAMINATION TYPE: CT urogram wo/w con DATE OF EXAM: 05/12/2023 COMPARISON: 02/28/2015 INDICATION: Hematuria and burning urination DLP: 5124.20 mGycm, Automated exposure control for dose reduction was used. CONTRAST: 100 mL of Isovue 370. Study performed without Oral Contrast TECHNIQUE: Axial images were obtained from above the diaphragm to the pubic rami in the axial plane a t 5 mm thick sections. Reconstructed images are reviewed on the computer in the coronal plane. FINDINGS: Limited CT sections are obtained the lung bases. The lung bases are clear. CT ABDOMEN: Liver: Normal Spleen: Normal Pancreas: Normal Adrenal glands: The adrenal glands are normal. Gallbladder: Normal Kidneys: No masses are evident. No hydronephrosis is present. No cysts are present. There is a 0.7 cm calcification posterior mid left kidney. Punctate calcifications at the superior pole right kidne y. There is mid to upper pole nonobstructing renal stone 0.3 cm. There is an inferior pole nonobstruc ting right renal calcification measuring 0.6 cm. Aorta: Vascular calcification is within the aorta. Inferior vena cava: Normal. Urogram: Following the intravenous station of contrast sequential images were obtained through the re nal collecting systems. 3-D reconstructed images were obtained. No suspicious filling defects are [place]. 3-D reconstructed images were performed. Renal calyces infundibula and renal pelves appear norm al. CT PELVIS: Loops of bowel within the abdomen and pelvis are normal. There are loops of bowel which are incom pletely distended or lack oral contrast limiting their evaluation. Appendix: Normal as visualized. Urinary bladder: Normal. Genitourinary structures: Prostate is visualized appears unremarkable. Osseous structures: There is a sclerotic area within the inferior left pubic ramus. There is a sclero tic area within the L1 vertebral level IMPRESSION: 1. No suspicious abnormality to account for hematuria. 2. Couple of sclerotic areas within the left pubic ramus and L1 vertebral level could be bone islands or metastatic disease.
== END | disposition home or self-care (01) ==
LOC: RADCTMAIN 13:11
PROVIDERS: ATTEND Urology
DX: R30.9 Painful micturition, unspecified (principal); R31.0 Gross hematuria
CPT/HCPCS: 82565; 84520; 74178; 36415; 74400; Q9967

== ENCOUNTER → 2023-05-20 | Outpatient (CLI) | payer MEDICARE ==
--- NOTE | 2023-05-21 08:27 | NM ---
EXAMINATION TYPE: NM bone scan whole body DATE OF EXAM: 05/20/2023 COMPARISON: CT scan 05/12/2023 CLINICAL INDICATION: Male, 67 years old with history of C67.9 MALIGNANT NEOPLASM OF BLADDER, UNSPECIF IED; Delayed whole-body scanning was performed following the injection of 24 mCi Tc 99m MDP. Images acqui red 3.5 hours post injection. FINDINGS: Moderate uptake involving shoulders compatible with arthropathy. Photopenic defect involving the right knee compatible with previous surgery. Mild intensity uptake involving the feet and left knee compatible with arthropathy. Mild intensity uptake throughout the thoracic spine likely degenerative. Sclerotic areas seen with by CT scan involving the pelvis and L1 segment may be too small to detect b y bone scan. No definite abnormal uptake. Recommend continued monitoring of these areas with CT scan. Heterogeneous uptake involving the anterior rib cage nonspecific IMPRESSION: No diagnostic evidence of metastases. There is heterogeneous uptake involving the anterior rib cage. Recommend follow-up x-rays of bilateral ribs.
== END | disposition home or self-care (01) ==
LOC: RADNMMAIN 10:35
PROVIDERS: ATTEND Urology
DX: C67.9 Malignant neoplasm of bladder, unspecified (principal)
CPT/HCPCS: 78306; A9503

== ENCOUNTER 2023-05-24 13:06 | Emergency (ER) | payer MEDICARE ==
[2023-05-24 13:46] VITALS: BP 116/73; PULSE 66; RESP 18; TEMP 97.2
[2023-05-24] MEDS ORDERED: TOPICAL SKIN ADHESIVE 1 EACH AMP TOPICAL ONE (13:56)
[2023-05-24] MEDS ORDERED: DIPH,PERTUS(ACELL)TETVAC-LF 0.5 ML VIAL IM ONE (13:56)
[2023-05-24] MEDS ORDERED: ACETAMINOPHEN TAB 500 MG TAB PO STA (13:58)
--- NOTE | 2023-05-24 14:01 | ED ---
Wound/Laceration HPI - General Chief Complaint: Wound/Laceration Stated Complaint: injury lacerations face/hands Time Seen by Provider: 05/24/23 13:38 Source: patient, RN notes reviewed Mode of arrival: ambulatory Limitations: no limitations - History of Present Illness Initial Comments: This is a 67-year-old male who presents to the emergency department for wounds to his left cheek and left hand. 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 He is concerned that pieces of shrapnel may be stuck inside of him. Unsure when his last tetanus vaccine was. - Related Data Home Medications Medication Instructions Recorded Confirmed amLODIPine BESYLATE [Norvasc] 10 mg PO DAILY 11/11/13 05/01/23 Simvastatin 40 mg PO HS 09/11/20 05/01/23 lisinopriL [Zestril] 10 mg PO DAILY 11/02/21 05/01/23 traZODone HCL [Desyrel] 100 mg PO HS 11/02/21 05/01/23 Aspirin [Adult Low Dose Aspirin EC] 81 mg PO DAILY 04/28/23 05/01/23 Insulin Degludec [Tresiba] 19 units SQ DAILY 04/28/23 05/01/23 Previous Rx's Medication Instructions Recorded Cephalexin [Keflex] 500 mg PO Q6HR 5 Days #20 cap 05/24/23 Allergies Allergy/AdvReac Type Severity Reaction Status Date / Time No Known Allergies Allergy Verified 05/24/23 13:36 Review of Systems ROS Statement: Those systems with pertinent positive or pertinent negative responses have been documented in the HPI. ROS Other: All systems not noted in ROS Statement are negative. Past Medical History Past Medical History: Coronary Artery Disease (CAD), Chest Pain / Angina, Dementia, Diabetes Mellitus, Hearing Disorder / Deafness, Hyperlipidemia, Hypertension, Musculoskeletal Disorder Additional Past Medical History / Comment(s): CHRONIC BACK PAIN History of Any Multi-Drug Resistant Organisms: None Reported Past Surgical History: Heart Catheterization, Orthopedic Surgery Additional Past Surgical History / Comment(s): LT KNEE ARTHROSCOPY, lumbar epidural injection, vasectomy Past Anesthesia/Blood Transfusion Reactions: No Reported Reaction Past Psychological History: Anxiety, Depression Smoking Status: Former smoker Past Alcohol Use History: None Reported Past Drug Use History: None Reported - Past Family History Father Family Medical History: Musculoskeletal Disorder, Neurologic Disorder Additional Family Medical History / Comment(s): Father had parkinsons. He is . Mother Family Medical History: Dementia Additional Family Medical History / Comment(s): Mother is . General Exam Limitations: no limitations General appearance: alert, in no apparent distress Head exam: Present: other (2mm wound to the left cheek with active bleeding. Palpable foreign body just superior to the wound.) Respiratory exam: Present: normal lung sounds bilaterally. Absent: respiratory distress, wheezes, rales, rhonchi, stridor Cardiovascular Exam: Present: regular rate, normal rhythm, normal heart sounds. Absent: systolic murmur, diastolic murmur, rubs, gallop, clicks Extremities exam: Present: other (Multiple superficial wounds on all 5 digits on the left hand with areas of small foreign bodies/shrapnel. Minor active bleeding. Full range of motion of all 5 digits.) Neurological exam: Present: alert, oriented X3, CN II-XII intact Psychiatric exam: Present: normal affect, normal mood Skin exam: Present: warm, dry, normal color. Absent: rash Course Vital Signs 05/24/23 13:34 Temperature 97.2 F L Pulse Rate 66 Respiratory 18 Rate Blood Pressure 116/73 O2 Sat by Pulse 97 Oximetry Procedures - Forgein Body Removal Soft Tissue Consent Obtained: verbal consent Site: face, hand Foreign Body Suspected: Other (Metal/copper) Foreign Body Removed: yes Foreign Body Removal Technique: Forceps - Laceration Laceration #1 Consent Obtained: verbal consent Indication: laceration Site: face Size (cm): 2 Description: stellate, flap Depth: simple, single layer Anesthetic Used: lidocaine 1%, with epi Anesthesia Technique: local infiltration Amount (mls): 5 Pre-repair: wound explored, irrigated extensively, foreign body removed Type of Sutures: nylon Size of Sutures: 5-0 Number of Sutures: 4 Technique: simple, interrupted Medical Decision Making - Medical Decision Making This is a 67-year-old male who presents to the emergency department for multiple wounds to the left hand and left side of his face. Was pt. sent in by a medical professional or institution? @ -No Did you speak to anyone other than the patient for history? @ -No Did you review nursing and triage notes? @ -Yes, and I agree, it is accurate with regards to the patient's symptoms. Were old charts reviewed? @ -No Differential Diagnosis? @ -Not applicable EKG interpreted by me (3pts min.)? @ -Not obtained X-rays interpreted by me (1pt min.)? @ -X-ray of the facial bones and left hand obtained. My interpretation of the facial bone x-ray identifies a radiopaque foreign body in the left cheek. My interpretation of the left hand x-ray identifies a radiopaque foreign body to the left thumb. CT interpreted by me (1pt min.)? @ -Not obtained U/S interpreted by me (1pt. min.)? @ -Not obtained What testing was considered but not performed? (CT, X-rays, U/S, labs)? Why? @ -None What meds were considered but not given? Why? @ -None Did you discuss the management of the patient with other professionals? @ -No Did you reconcile home meds? @ -No Was smoking cessation discussed for >3mins.? @ -No Was critical care preformed (if so, how long)? @ -No Were there social determinants of health that impacted care today? How? (Homelessness, low income, unemployed, alcoholism, drug addiction, transportation, low edu. Level, literacy, decrease access to med. care, assisted, rehab)? @ -No Was there de-escalation of care discussed even if they declined? (Discuss DNR or withdrawal of care, Hospice)? @ -No What co-morbidities impacted this encounter? (DM, HTN, Smoking, COPD, CAD, Cancer, CVA, Hep., AIDS, mental health diagnosis, sleep apnea, morbid obesity)? @ -DM Was patient admitted / discharged? @ -Discharged. His left hand was initially soaked in sterile water mixed with Betadine for approximately 20 minutes to thoroughly cleanse the wounds. Tetanus vaccine was updated. On physical examination of the hand, there were multiple foreign bodies that could be palpated, visualized, and easily removed. The lacerations themselves were fairly superficial and no repair with sutures was required, however LET was required to help control the bleeding on some of them. Some of the deeper ones did also use Exofin to help approximate the edges. On initial evaluation of the cheek wound, a foreign body could be palpated but was not easily visualized. We then obtained an x-ray that did confirm the presence of a foreign body. The bleeding was difficult to control and made visualization difficult. We tried applying LET, which stopped the bleeding, but after trying to manipulate this area again it subsequently resumed. Lidocaine with epinephrine was then used to both numb up the area and stop the bleeding. This was helpful. We then used a scalpel to extend the length of the laceration vertically and horizontally. After doing this the foreign body fragment could be visualized and was successfully removed. The wound was thoroughly irrigated and closed with sutures. We did also obtain an x-ray of the left hand following removal of several foreign bodies. There was still a foreign body in the thumb that could not be easily visualized. It appears that it had gone in between the skin of the thumb and the nail, and there was not an easy way to get to this without opening the skin up. After discussion with the patient, he decided to avoid any further attempts at removal at this time. He is already established with [facility] and I advised to follow-up with them for further management. He was started on Keflex for infectious prophylaxis. He is instructed to return in 5-7 days for suture removal and follow-up with orthopedics regarding any residual foreign bodies in the hand. Patient discharged home in stable condition. Undiagnosed new problem with uncertain prognosis? @ -None Drug Therapy requiring intensive monitoring for toxicity (Heparin, Nitro, Insulin, Cardizem)? @ -None Were any procedures done? @ -Removal of multiple foreign bodies in soft tissue and laceration repair on the cheek Diagnosis/symptom? @ -Laceration, soft tissue foreign bodies Acute, or Chronic, or Acute on Chronic? @ -Acute Uncomplicated (without systemic symptoms) or Complicated (systemic symptoms)? @ -Uncomplicated Side effects of treatment? @ -None Exacerbation, Progression, or Severe Exacerbation] @ -Not applicable Poses a threat to life or bodily function? @ -Unlikely Return precautions reviewed in depth, the patient is instructed to return to the emergency department with any new, worsening, or concerning symptoms. Patient verbalized understanding. This case was discussed in detail with the attending ED physician, Dr. Lassiter. Presentation, findings, and treatment plan discussed in detail as well. - Radiology Data Radiology results: report reviewed, image reviewed Disposition Clinical Impression: Laceration, Foreign body (FB) in soft tissue Disposition: HOME SELF-CARE Instructions (If sedation given, give patient instructions): Care For Your Stitches (ED), Skin Adhesive Care (ED) Additional Instructions: Return to the emergency department with any new, worsening, or concerning symptoms. Take Tylenol as needed for pain relief. Take the antibiotics as prescribed for 5 days. Keep the area dry, do not apply topical medications, and do not rub, scratch, or pick at the wound. The adhesive will naturally fall off within 5-10 days. Return in 5-7 days for removal of the stitches, or have this done during your primary care follow-up if it is within this timeframe. [facility] the foreign body in the thumb. Prescriptions: Cephalexin [Keflex] 500 mg PO Q6HR 5 Days #20 cap Is patient prescribed a controlled substance at d/c from ED?: No Referrals: Frances Quigley MD [Primary Care Provider] - 1-2 days
[2023-05-24] MEDS ORDERED: LIDOCAINE/EPINEPHR/TETRACAINE 5 ML BOTTLE TOPICAL ONE ×2 (14:45→15:22)
--- NOTE | 2023-05-24 15:50 | XR ---
Facial bones HISTORY: Rule out foreign body in left cheek. COMPARISON: None. TECHNIQUE: 3 views of the facial bones were obtained. The osseous structures are intact. There is a 7.7 x 5.7 mm radiopaque foreign body in the soft tissues of the left cheek. The paranasal sinuses are well aerated. IMPRESSION: Radiopaque foreign body left cheek soft tissues as described above
[2023-05-24] MEDS ORDERED: ACET/COD 300 MG/30 MG STARTER PACK 6 TAB BTL PO STA (16:55)
--- NOTE | 2023-05-24 17:34 | XR ---
Left hand HISTORY:. Radiopaque foreign body. COMPARISON: None TECHNIQUE: 3 views left hand were obtained. FINDINGS: There are 2 radiopaque foreign bodies of the thumb. There is a 5 mm radiopaque foreign body overlying the dorsal aspect of the distal phalanx of the thumb. A second smaller 2 to 3 mm radiopaque foreign body overlies the volar aspect of the distal first metacarpal. There are 2 tiny radiopaque foreign tyrese dies in the soft tissues adjacent to the distal phalanxes of the third and fourth digits. The osseous structures are intact and there is no fracture. IMPRESSION: 1. Multiple radiopaque foreign bodies as described above. 2. No fracture or focal intraosseous abnormality.
== END 2023-05-24 18:00 | disposition home or self-care (01) ==
LOC: EC 13:06
DX: S61.217A Laceration without foreign body of left little finger without damage to nail, initial encounter (principal); S00.85XA Superficial foreign body of other part of head, initial encounter; E11.9 Type 2 diabetes mellitus without complications; E78.5 Hyperlipidemia, unspecified; I10 Essential (primary) hypertension; I25.10 Atherosclerotic heart disease of native coronary artery without angina pectoris; Z86.59 Personal history of other mental and behavioral disorders; Z79.4 Long term (current) use of insulin; Z79.82 Long term (current) use of aspirin; Z79.899 Other long term (current) drug therapy; Z87.891 Personal history of nicotine dependence; Z23 Encounter for immunization; X50.0XXA Overexertion from strenuous movement or load, initial encounter
CPT/HCPCS: 10120; 12001; 70150; 90471; 90715; 99283

== ENCOUNTER → 2023-06-19 | Outpatient (CLI) | payer MEDICARE ==
--- NOTE | 2023-06-19 11:53 | XR ---
EXAMINATION TYPE: XR chest 2V DATE OF EXAM: 06/19/2023 COMPARISON: 12/23/2020 TECHNIQUE: PA and lateral views submitted. HISTORY: Presurgical FINDINGS: The lungs are clear and there is no pneumothorax, pleural effusion, or focal pneumonia. Heart size normal and no overt failure. Osseous structures demonstrate hypertrophic and degenerative changes of the spine. Aortic ectasia with atherosclerotic change. Limited inspiration. Prominence of the upper m ediastinum likely vascular. A IMPRESSION: 1. No acute process.
[2023-06-19 15:22] LABS: Basophils # (A) 0.05 X 10*3/uL (0.00-0.10); Basophils % (A) 0.8 %; HCT 43.1 % (39.6-50.0); HGB 13.6 g/dL (13.0-17.0); Lymphocytes # (A) 2.05 X 10*3/uL (0.90-5.00); MCH 28.5 pg (27.0-32.0); MCHC 31.6 g/dL (32.0-37.0); MCV 90.4 FL (80.0-97.0); Mean Platelet Volume 10.4 FL (9.5-12.2); Monocytes # (A) 0.59 X 10*3/uL (0.20-1.00); Monocytes % (A) 8.9 %; NRBC Per 100 WBC 0 X 10*3/uL (0.00-0.01); Neutrophils # (A) 3.71 X 10*3/uL (1.80-7.70); Platelet Count 192 X 10*3/uL (140-440); RBC 4.77 X 10*6/uL (4.40-5.60); RDW 13.5 % (11.5-14.5); WBC 6.62 X 10*3/uL (4.50-10.00)
[2023-06-19 15:42] LABS: Blood Urea Nitrogen 31.2 mg/dL (9.0-27.0); Calcium 8.8 mg/dL (8.7-10.3); Carbon Dioxide 23.9 mmol/L (21.6-31.8); Chloride 103 mmol/L (96-109); Glucose 208 mg/dL (70-110); Potassium 4.4 mmol/L (3.5-5.5); Sodium 137 mmol/L (135-145)
[2023-06-19 18:30] LABS: Appearance,Urine Clear (Clear); Bilirubin,Urine Negative (Negative); Blood,Urine Moderate (Negative); Color,Urine Yellow (Yellow); Ketones,Urine Negative (Negative); Nitrite,Urine Negative (Negative); PH, Urine 5.5; Specific Gravity,Urine 1.024 (1.001-1.030); Urobilinogen,Urine 0.2 E.U./DL
[2023-06-19 18:56] LABS: Bacteria,Urine None Seen (None Seen)
== END | disposition home or self-care (01) ==
LOC: LABPAT 10:09
PROVIDERS: ATTEND Urology
DX: Z01.812 Encounter for preprocedural laboratory examination (principal); C67.9 Malignant neoplasm of bladder, unspecified; I10 Essential (primary) hypertension; R07.9 Chest pain, unspecified; I44.0 Atrioventricular block, first degree; R00.1 Bradycardia, unspecified; R35.0 Frequency of micturition; R31.29 Other microscopic hematuria; R94.31 Abnormal electrocardiogram [ECG] [EKG]
CPT/HCPCS: 36415; 71046; 80048; 81001; 85025; 87086; 93005

== ENCOUNTER 2023-06-26 05:52 | Inpatient (IN) | payer MEDICARE ==
[2023-06-24 10:00] VITALS: BMI 33.5
[~2023-06-26 05:52] MED LIST changes: -DEXAMETHASONE SOD PHOSPHATE 4 MG/ML 1 ML VIAL IV ONE; -GLYCOPYRROLATE 0.2 MG/ML 2 ML VIAL ONE; +HEPARIN SODIUM,PORCINE 5,000 UNIT/ML 1 ML VIAL SQ PRN; -LACTATED RINGERS 1,000 ML IV ONE; -LACTATED RINGERS 1,000 ML IV SCH; -LIDOCAINE 1% INJ 10MG/ML (20 ML MDV) ONE; -MEPERIDINE 50 MG/ML SYRINGE IVP ONE; -MIDAZOLAM 2 MG/2 ML VIAL IVP ONE; -MIDAZOLAM 2 MG/2 ML VIAL ONE; -NEOSTIGMINE 1 MG/ML 10 ML VIAL ONE; -ONDANSETRON 4 MG/2 ML VIAL IVP ONE; -PHENYLEPHRINE-0.9% NACL SYG 1,000 MCG/10 ML SYRINGE ONE; -PROPOFOL 10 MG/ML 20 ML VIAL IV ONE; -ROCURONIUM 10 MG/ML (5 ML VIAL) IV ONE; -SUCCINYLCHOLINE CHLORIDE 200 MG/10 ML VIAL IV ONE; -fentaNYL (PF) 50 MCG/ML 2 ML AMP ONE
[2023-06-26] MEDS ORDERED: DEXAMETHASONE SOD PHOSPHATE 4 MG/ML 1 ML VIAL IV ONE (06:07)
[2023-06-26] MEDS ORDERED: LIDOCAINE 1% (10MG/ML) FOR IV START INTRADERMA PRN (06:07)
[2023-06-26] MEDS ORDERED: ONDANSETRON 4 MG/2 ML VIAL IVP ONE (06:07)
[2023-06-26] MEDS: LACTATED RINGERS 1,000 ML IV SCH (06:49)
[2023-06-26] MEDS ORDERED: droPERidol 5 MG/2 ML VIAL IVP PRN (07:00)
[2023-06-26] MEDS ORDERED: HYDROmorphone 0.5 MG/0.5 ML SYRINGE IVP PRN (07:00)
[2023-06-26] MEDS ORDERED: MIDAZOLAM 2 MG/2 ML VIAL IVP ONE (07:08)
[2023-06-26 07:14] LABS: Glucose,Whole Blood 183 mg/dL (70-110)
--- NOTE | 2023-06-26 07:22 | P.ANPRN ---
Procedure Note - Anesthesia - Nerve Block Performed Bilateral Erector Spinae Single Time Out Performed: Yes Date of Procedure: 06/26/23 Procedure Start Time: : Procedure Stop Time: : Location of Patient: PreOp Indication: Acute Post-Operative Pain, Requested by Surgeon Sedation Type: Sedate with meaningful contact maintained Preparation: Sterile Prep, Sterile Dressing Position: Prone Catheter: None Needle Types: Facet Needle Gauge: 20 Ultrasound used to visualize needle placement: Yes Ultrasound used to observe medication spread: Yes Injectate: Other (see comment) (Ropivacaine 0.25% + decadron 2 mg 30 ml per side) Blood Aspirated: No Pain Paresthesia on Injection Noted: No Resistance on Injection: Normal Image Stored and Saved: Yes Events: Uneventful and Well Tolerated
[2023-06-26] MEDS ORDERED: GLYCOPYRROLATE 0.2 MG/ML 2 ML VIAL ONE (07:30)
[2023-06-26] MEDS ORDERED: ROCURONIUM 10 MG/ML (5 ML VIAL) IV ONE (07:30)
[2023-06-26] MEDS ORDERED: HYDROmorphone (PF) 1 MG/ML ONE (07:30)
[2023-06-26] MEDS ORDERED: fentaNYL (PF) 50 MCG/ML 2 ML AMP ONE (07:30)
[2023-06-26] MEDS ORDERED: SUCCINYLCHOLINE CHLORIDE 200 MG/10 ML VIAL IV ONE (07:30)
[2023-06-26] MEDS ORDERED: PROPOFOL 10 MG/ML 20 ML VIAL IV ONE (07:30)
[2023-06-26] MEDS ORDERED: LIDOCAINE 1% INJ 10MG/ML (20 ML MDV) ONE (07:30)
[2023-06-26] MEDS ORDERED: ROPIVACAINE 5 MG/ML 30 ML VIAL ONE (07:30)
[2023-06-26] MEDS ORDERED: NEOSTIGMINE 1 MG/ML 10 ML VIAL ONE (07:30)
[2023-06-26] MEDS ORDERED: SODIUM CHLORIDE 0.9% (PF) 10 ML VIAL ONE (07:30)
--- NOTE | 2023-06-26 07:35 | P.HPIHPCON ---
History of Present Illness H&P Date: 06/24/23 Chief Complaint: Bladder cancer This is a 67-year-old male with history of muscle invasive bladder cancer. Patient has multiple comorbidities. Option of a radical cystectomy versus a partial cystectomy versus a radiation and chemotherapy was discussed with him in detail. Both patient and his family agreed to proceed with a robotic partial cystectomy. Aware of the risk which includes but not limited to bleeding, infection, injury to nearby organ, potential of cancer recurrence. Risk of anesthesia was also discussed. Discussed also potential of needing postoperative surveillance and potential of cancer recurrence. He understood all the risk and agreed to proceed with a robotic partial cystectomy with pelvic lymph node dissection Consent for Procedure: I have explained the operation/procedure to the patient, including the risks, benefits, side effects, alternative therapies (including not receiving the proposed treatment or service), the likelihood of the patient achieving his/her goals, and potential recuperation problems for the procedure/sedation/analgesia, as well as any blood products, if indicated. I also explained to the patient the risks, benefits and side effects of the alternatives, as well as the risks related to not receiving the proposed procedure, care, treatment, or services. Past Medical History Past Medical History: Coronary Artery Disease (CAD), Cancer, Chest Pain / Angina, Dementia, Diabetes Mellitus, Hearing Disorder / Deafness, Hyperlipidemia, Hypertension Additional Past Medical History / Comment(s): Current bladder cancer. Hearing aid use. CHRONIC BACK PAIN. Dry Skin. History of Any Multi-Drug Resistant Organisms: None Reported Past Surgical History: Orthopedic Surgery Additional Past Surgical History / Comment(s): LEFT KNEE ARTHROSCOPY, lumbar epidural injection, vasectomy. Past Anesthesia/Blood Transfusion Reactions: No Reported Reaction Past Psychological History: Anxiety, Depression Smoking Status: Former smoker Past Alcohol Use History: None Reported Additional Past Alcohol Use History / Comment(s): Started smoking in 1971 and quit in 1994. Past Drug Use History: Marijuana Additional Drug Use History / Comment(s): Tried Marijuana Gummies, las used 6 weeks ago. 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 - Past Family History Father Family Medical History: Musculoskeletal Disorder, Neurologic Disorder Additional Family Medical History / Comment(s): Father had Parkinsons. He is . Mother Family Medical History: Dementia Additional Family Medical History / Comment(s): Mother is . Medications and Allergies Home Medications Medication Instructions Recorded Confirmed Type amLODIPine BESYLATE [Norvasc] 10 mg PO DAILY@1200 11/11/13 06/24/23 History lisinopriL [Zestril] 10 mg PO QAM 11/02/21 06/24/23 History traZODone HCL [Desyrel] 200 mg PO HS 11/02/21 06/24/23 History Aspirin [Adult Low Dose Aspirin EC] 81 mg PO DAILY 04/28/23 06/24/23 History Insulin Degludec [Tresiba] 24 units SQ QAM 04/28/23 06/24/23 History Rosuvastatin [Crestor] 10 mg PO QAM 06/24/23 06/24/23 History Tirzepatide [Mounjaro] 5 mg SQ WE 06/24/23 06/24/23 History Allergies Allergy/AdvReac Type Severity Reaction Status Date / Time No Known Allergies Allergy Verified 06/26/23 06:19 Surgical - Exam - General no distress, no pain - Eyes normal ocular movement, no pale - ENT normal nares, normal mucosa - Respiratory normal expansion, normal respiratory effort - Abdomen Abdomen: soft, non tender Assessment and Plan Assessment: OR for robotic partial cystectomy with pelvic lymph node dissection
[2023-06-26] MEDS ORDERED: ONDANSETRON 4 MG/2 ML VIAL IVP PRN (07:54)
[2023-06-26] MEDS ORDERED: HYDROcodone/APAP 5-325MG 1 EACH TAB PO PRN (07:55)
[2023-06-26] MEDS ORDERED: BUPIVACAINE (PF) 0.5% 30 ML VIAL SQ ONE ×2 (08:58→10:57)
[2023-06-26 11:24] LABS: Glucose,Whole Blood 230 mg/dL (70-110)
[2023-06-26] MEDS ORDERED: INSULIN ASPART (NovoLOG) 100 UNIT/ML VIAL SQ ONE (11:32)
[2023-06-26] MEDS: KETOROLAC 15 MG/ML 1 ML VIAL IVP SCH ×3 (12:13→23:39)
--- NOTE | 2023-06-26 12:48 | P.OP ---
Date of Procedure: 06/26/23 Preoperative Diagnosis: bladder cancer Postoperative Diagnosis: same Procedure(s) Performed: cystoscopy, robotic assisted partial cystectomy and pelvic lymph node dissection Implants: none Anesthesia: TSERING Surgeon: Guille Greer Estimated Blood Loss (ml): 25 Pathology: other (Bladder mass scar, bilateral pelvic lymph nodes, left and right bladder margin) Condition: stable Disposition: PACU Indications for Procedure: This is a 67-year-old male with history of muscle invasive bladder cancer. Patient has multiple comorbidities. Option of a radical cystectomy versus a partial cystectomy versus a radiation and chemotherapy was discussed with him in detail. patient is a suboptimal candiate for radical cystectomy and chemotherapy. Both patient and his family agreed to proceed with a robotic partial cystectomy. Aware of the risk which includes but not limited to bleeding, infection, injury to nearby organ, potential of cancer recurrence. Risk of anesthesia was also discussed. Discussed also potential of needing postoperative surveillance and potential of cancer recurrence. He understood all the risk and agreed to proceed with a robotic partial cystectomy with pelvic lymph node dissection Operative Findings: previous TUR scar was visualized at the anterior dome, Description of Procedure: After preoperative antibiotics were started, the patient was taken to the operating room. Anesthesia was induced and the patient was placed in a low lithitomy position, with adequate padding of the pressure points, shoulders, back, legs and arms. He was then prepped and draped in the standard fashion. A critical pause was performed using two patient identifiers. next a cystoscope fitted with a 22-Bengali sheath was inserted per urethra, cystoscopy was performed which showed the previous TUR scar visualized along the anterior dome. No additional abnormality was seen within the bladder. A 16F angel catheter was placed to gravity drainage. A pneumo-peritoneum was created with placement of a Veress needle to 20 mm Hg without complication, and a 8 Fr trocar was placed above the umbillicus. Under direct vision a 8mm robotic ports was placed lateral to each rectus slightly below the camera port. The left iliac fossa 8mm port was placed. The right assistant restaurant general manager right iliac fossa 12mm port and right paramedian 5mm portwere placed. After the patient was placed in the trendelenberg position, the robot was then docked to the 8mm robotic ports and then each robotic arm and tower was checked in relation to the patient's legs and hands to avoid inadvertent compression. The peritoneal cavity was inspected. An inverted U-shaped incision began laterally to the left medial umbilical ligament and extended high across the midline to the right umbilical ligament. The limbs of the "U" extended to the level of the vasa on both sides. We next developed the preperitoneal space and the space of Retzius. bladder was not completely mobilized anteriorly. Next the bladder was filled with 300 mL's of saline. An incision was made along the posterior dome. At this point it TURBT was visualized and it was away from the bladder opening, the opening was further extended anteriorly. At this time using cautery the previous TUR scar was marked, maintaining 1 cm margin. Next this was completely excised using full- thickness excision. The tumor was placed in the Endo Catch bag and removed through the assistant restaurant general manager port. frozen section was sent of the margin which came back negative for malignancy. Repeat inspection of the bladder showed no additional tumors, the dissection was away from the ureteral orifice ease. There was clear efflux coming from both orifices. bladder was closed in 3 layers using 30V lock for the inner layer and 20V lock for the outer layer. The peritoneum was reinforced over the closure. The closure was tested by filling the bladder with 200 mL and it was watertight bilateral obturator and external iliac lymph node packets were carefully dissected after careful visualization of the hypogastric artery and obturator nerve. There was careful attention paid to hemostasis with judicious use of cautery. David drain was placed through the left lower quadrant port site. robot was undocked. All ports were closed with a subcuticular 4-0 monocryl and Dermabond. Sponge, instrument, and needle counts were correct at the end of the case x2. All specimens including bladder tumor and lymph nodes were sent to pathology for diagnosis and will be available in a week. The patient tolerated the surgery well and without complication. He awoke without difficulty and was taken to the recovery room in stable condition, counts were correct 2
[2023-06-26] MEDS: amLODIPine 10 MG TAB PO SCH (16:18)
[2023-06-26] MEDS: ATORVASTATIN 20 MG TAB PO SCH (16:19)
[2023-06-26] MEDS: SODIUM CHLORIDE 0.9% 1,000 ML IV SCH ×2 (16:20→21:09)
[2023-06-26 17:27] LABS: Glucose,Whole Blood 272 mg/dL (70-110)
[2023-06-26] MEDS ORDERED: DEXTROSE 50% SYRINGE 50 ML IVP PRN ×2 (17:48)
[2023-06-26] MEDS: HEPARIN SODIUM,PORCINE 5,000 UNIT/ML 1 ML VIAL SQ SCH ×2 (17:55→23:38)
[2023-06-26] MEDS: INSULIN DETEMIR (LEVEMIR) 100 UNIT/ML SYR SQ SCH (17:56)
[2023-06-26] MEDS: INSULIN ASPART (NovoLOG) 100 UNIT/ML VIAL SQ SCH ×2 (17:57→21:09)
[2023-06-26 20:33] LABS: Glucose,Whole Blood 274 mg/dL (70-110)
[2023-06-26] MEDS ORDERED: traZODone HCL 100 MG TAB PO SCH (21:00)
[2023-06-27] MEDS: LACTATED RINGERS 1,000 ML IV SCH (05:07)
[2023-06-27 06:12] LABS: Glucose,Whole Blood 186 mg/dL (70-110)
[2023-06-27] MEDS: KETOROLAC 15 MG/ML 1 ML VIAL IVP SCH ×2 (06:28→12:42)
[2023-06-27] MEDS: INSULIN ASPART (NovoLOG) 100 UNIT/ML VIAL SQ SCH ×2 (06:34→12:42)
[2023-06-27 08:23] VITALS: BP 105/72; PULSE 96; RESP 18; TEMP 98.8
[2023-06-27] MEDS ORDERED: lisinopriL 10 MG TAB PO SCH (09:00)
[2023-06-27] MEDS: HEPARIN SODIUM,PORCINE 5,000 UNIT/ML 1 ML VIAL SQ SCH (09:10)
[2023-06-27] MEDS: ATORVASTATIN 20 MG TAB PO SCH (09:10)
[2023-06-27] MEDS: INSULIN DETEMIR (LEVEMIR) 100 UNIT/ML SYR SQ SCH (09:35)
[2023-06-27] MEDS: SODIUM CHLORIDE 0.9% 1,000 ML IV SCH (09:37)
[2023-06-27 11:14] LABS: Glucose,Whole Blood 225 mg/dL (70-110)
--- NOTE | 2023-06-27 12:41 | P.DS ---
Providers Date of admission: 06/26/23 05:52 Attending physician: Guille Greer MD Primary care physician: [facility] Course: This is a 67-year-old male with history of bladder cancer, underwent a robotic partial cystectomy on June 26. Please see op note dated June 26 for surgery detail. Patient did well in the postoperative period. He was discharged home on postop day #1 with the LAURA drain and the Reid catheter, he will follow-up in the office next week for LAURA removal. He will require cystogram in 2 weeks. At time of discharge he was tolerating a diet, ambulating , and pain was controlled Plan - Discharge Summary Discharge Rx Participant: Yes New Discharge Prescriptions: No Action amLODIPine BESYLATE [Norvasc] 10 mg PO DAILY@1200 lisinopriL [Zestril] 10 mg PO QAM Aspirin [Adult Low Dose Aspirin EC] 81 mg PO DAILY traZODone HCL [Desyrel] 200 mg PO HS Insulin Degludec [Tresiba] 24 units SQ QAM Rosuvastatin [Crestor] 10 mg PO QAM Tirzepatide [Mounjaro] 5 mg SQ WE Discharge Medication List amLODIPine BESYLATE [Norvasc] 10 mg PO DAILY@1200 11/11/13 [History] lisinopriL [Zestril] 10 mg PO QAM 11/02/21 [History] traZODone HCL [Desyrel] 200 mg PO HS 11/02/21 [History] Aspirin [Adult Low Dose Aspirin EC] 81 mg PO DAILY 04/28/23 [History] Insulin Degludec [Tresiba] 24 units SQ QAM 04/28/23 [History] Rosuvastatin [Crestor] 10 mg PO QAM 06/24/23 [History] Tirzepatide [Mounjaro] 5 mg SQ WE 06/24/23 [History] Follow up Appointment(s)/Referral(s): Guille Greer MD [STAFF PHYSICIAN] - 07/02/23 11:40 am Discharge Disposition: HOME SELF-CARE
[2023-06-27] MEDS: amLODIPine 10 MG TAB PO SCH (12:42)
== END 2023-06-27 13:34 | disposition home or self-care (01) | DRG 655 ==
LOC: 2ORMAIN 05:52 → EDSTATUS 11:05 → 4SSUR 11:53
PROVIDERS: ADMIT Urology; ATTEND Urology
PROC: 07BC4ZX Excision of Pelvis Lymphatic, Percutaneous Endoscopic Approach, Diagnostic (ICD-10-PCS; 2023-06-26)
PROC: 8E0W4CZ Robotic Assisted Procedure of Trunk Region, Percutaneous Endoscopic Approach (ICD-10-PCS; 2023-06-26)
PROC: 3E0T3BZ Introduction of Anesthetic Agent into Peripheral Nerves and Plexi, Percutaneous Approach (ICD-10-PCS; 2023-06-26)
PROC: 3E0T33Z Introduction of Anti-inflammatory into Peripheral Nerves and Plexi, Percutaneous Approach (ICD-10-PCS; 2023-06-26)
PROC: 0TBB4ZZ Excision of Bladder, Percutaneous Endoscopic Approach (ICD-10-PCS; principal; 2023-06-26 07:30)
DX: C67.9 Malignant neoplasm of bladder, unspecified (principal); E11.9 Type 2 diabetes mellitus without complications; F03.90 Unspecified dementia, unspecified severity, without behavioral disturbance, psychotic disturbance, mood disturbance, and anxiety; I10 Essential (primary) hypertension; G89.29 Other chronic pain; M54.9 Dorsalgia, unspecified; H91.90 Unspecified hearing loss, unspecified ear; E78.5 Hyperlipidemia, unspecified; I25.10 Atherosclerotic heart disease of native coronary artery without angina pectoris; F11.91 Opioid use, unspecified, in remission; F19.91 Other psychoactive substance use, unspecified, in remission; Z79.4 Long term (current) use of insulin; Z97.4 Presence of external hearing-aid; Z79.85 Long-term (current) use of injectable non-insulin antidiabetic drugs; Z79.82 Long term (current) use of aspirin; Z79.899 Other long term (current) drug therapy; Z87.891 Personal history of nicotine dependence; Z82.0 Family history of epilepsy and other diseases of the nervous system
CPT/HCPCS: 64999

== ENCOUNTER → 2023-07-09 | Outpatient (CLI) | payer MEDICARE ==
--- NOTE | 2023-07-09 10:53 | FL ---
EXAMINATION TYPE: FL cystogram DATE OF EXAM: 07/09/2023 9:01 AM CLINICAL INDICATION:Male, 67 years old with history of C67.9 MALIGNANT NEOPLASM OF BLADDER,; , [facility] COMPARISON: 05/12/2023 TECHNIQUE: The study was explained to the patient and history was elicited. Prior to initiation of t he study a refrigeration plant cork insulator radiograph of the abdomen and pelvis was obtained. A urinary bladder catheter was pl aced under outside the department of radiology. 150 ccs of Cystografin were instilled via the urinary catheter under intermittent spot fluoroscopy. Fluoroscopy time 1 minute 22nd. Fluoroscopy images: 0 Radiographs images: 19 DAP: Not reported mGycm2 FINDINGS: The refrigeration plant cork insulator fluoroscopic image of the pelvis demonstrated no acute intrapelvic or intra-abdominal patho logy. After the urinary bladder was partially distended and the patient started feeling pain in the p atient elected to terminate the exam. At that time oblique and frontal radiographs were obtained. Ad ditional radiographs of the right ureter and right renal collecting system were obtained due to reflu x seen within the right collecting system. The bladder wall demonstrates trabeculations likely due to underdistention. No focal abnormal outpouching, extrinsic impression or contrast extravasation. The re was no left vesiculo-ureteral reflux, only right-sided. There is no evidence of extravasation of c ontrast outside the bladder lumen. Severe atherosclerosis of the arterial vasculature. IMPRESSION: Limited exam due to incomplete distention due to patient terminating the exam early. There was viscer al ureteral reflux on the right which showed smooth right ureter and right renal calyces. No masses d efinitively visualized.
== END | disposition home or self-care (01) ==
LOC: RADFLMAIN 07:57
PROVIDERS: ATTEND Urology
DX: C67.9 Malignant neoplasm of bladder, unspecified (principal); N13.70 Vesicoureteral-reflux, unspecified
CPT/HCPCS: 74430; Q9958

== ENCOUNTER 2023-12-22 16:25 | Emergency (ER) | payer MEDICARE ==
--- NOTE | 2023-12-22 17:02 | ED ---
General Adult HPI - General Chief complaint: Urogenital Stated complaint: Post-op, catheter issue Time Seen by Provider: 12/22/23 16:55 Source: patient, RN notes reviewed, old records reviewed Mode of arrival: wheelchair - History of Present Illness Initial comments: This is a 68-year-old male who presents to the emergency department stating that he had surgery 3 days ago for bladder cancer and he had a Reid catheter placed he states as of 10:00 this morning nothing else is coming out of it and his suprapubic region is becoming quite tender. Patient denies any fever or chills. Patient has any back pain. Patient has any nausea vomiting. - Related Data Home Medications Medication Instructions Recorded Confirmed amLODIPine BESYLATE [Norvasc] 10 mg PO DAILY@1200 11/11/13 06/24/23 lisinopriL [Zestril] 10 mg PO QAM 11/02/21 06/24/23 traZODone HCL [Desyrel] 200 mg PO HS 11/02/21 06/24/23 Aspirin [Adult Low Dose Aspirin EC] 81 mg PO DAILY 04/28/23 06/24/23 Insulin Degludec [Tresiba] 24 units SQ QAM 04/28/23 06/24/23 Rosuvastatin [Crestor] 10 mg PO QAM 06/24/23 06/24/23 Tirzepatide [Mounjaro] 5 mg SQ WE 06/24/23 06/24/23 Previous Rx's Medication Instructions Recorded Cephalexin [Keflex] 500 mg PO Q8HR #15 cap 06/27/23 Ketorolac [Toradol] 10 mg PO Q6HR PRN #15 tab 06/27/23 Allergies Allergy/AdvReac Type Severity Reaction Status Date / Time No Known Allergies Allergy Verified 12/22/23 16:43 Review of Systems ROS Statement: Those systems with pertinent positive or pertinent negative responses have been documented in the HPI. ROS Other: All systems not noted in ROS Statement are negative. Past Medical History Past Medical History: Coronary Artery Disease (CAD), Chest Pain / Angina, Dementia, Diabetes Mellitus, Hearing Disorder / Deafness, Hyperlipidemia, Hypertension, Musculoskeletal Disorder Additional Past Medical History / Comment(s): CHRONIC BACK PAIN History of Any Multi-Drug Resistant Organisms: None Reported Past Surgical History: Heart Catheterization, Orthopedic Surgery Additional Past Surgical History / Comment(s): LT KNEE ARTHROSCOPY, lumbar epidural injection, vasectomy Past Anesthesia/Blood Transfusion Reactions: No Reported Reaction Past Psychological History: Anxiety, Depression Smoking Status: Former smoker, Never smoker Past Alcohol Use History: None Reported Past Drug Use History: None Reported - Past Family History Father Family Medical History: Musculoskeletal Disorder, Neurologic Disorder Additional Family Medical History / Comment(s): Father had Parkinsons. He is . Mother Family Medical History: Dementia Additional Family Medical History / Comment(s): Mother is . General Exam - General Exam Comments Initial Comments: GENERAL: Patient is well-developed and well-nourished. Patient is nontoxic and well- hydrated and is in mild distress. ENT: Neck is soft and supple. No significant lymphadenopathy is noted. Oropharynx is clear. Moist mucous membranes. Neck has full range of motion without eliciting any pain. EYES: The sclera were anicteric and conjunctiva were pink and moist. Extraocular movements were intact and pupils were equal round and reactive to light. Eyelids were unremarkable. ABDOMEN: She has some suprapubic tenderness and some distention. SKIN: Skin is clear with no lesions or rashes and otherwise unremarkable. NEUROLOGIC: Patient is alert and oriented x3. Cranial nerves II through XII are grossly intact. Motor and sensory are also intact. Normal speech, volume and content. Symmetrical smile. MUSCULOSKELETAL: Normal extremities with adequate strength and full range of motion. LYMPHATICS: No significant lymphadenopathy is noted PSYCHIATRIC: Normal psychiatric evaluation. Course Vital Signs 12/22/23 16:39 Temperature 98.2 F Pulse Rate 92 Respiratory 18 Rate Blood Pressure 116/75 O2 Sat by Pulse 96 Oximetry Medical Decision Making - Medical Decision Making Was pt. sent in by a medical professional or institution (, PA, SOIL BIOLOGY TEACHER, urgent care, hospital, or senior living...) When possible be specific @ -No Did you speak to anyone other than the patient for history (EMS, parent, family, police, friend...)? What history was obtained from this source @ -No Did you review nursing and triage notes (agree or disagree)? Why? @ -I reviewed and agree with nursing and triage notes Were old charts reviewed (outside hosp., previous admission, EMS record, old EKG, old radiological studies, urgent care reports/EKG's, senior living records)? Report findings @ -No old charts were reviewed Differential Diagnosis (chest pain, altered mental status, abdominal pain women, abdominal pain men, vaginal bleeding, weakness, fever, dyspnea, syncope, headache, dizziness, GI bleed, back pain, seizure, CVA, palpatations, mental health, musculoskeletal)? @ -Urinary retention, clogged catheter, patient end tract infection this is not an all-inclusive list EKG interpreted by me (3pts min.). @ -As above X-rays interpreted by me (1pt min.). @ -None done CT interpreted by me (1pt min.). @ -None done U/S interpreted by me (1pt. min.). @ -None done What testing was considered but not performed or refused? (CT, X-rays, U/S, labs)? Why? @ -None What meds were considered but not given or refused? Why? @ -None Did you discuss the management of the patient with other professionals (professionals i.e. , PA, SOIL BIOLOGY TEACHER, lab, RT, psych nurse, social science professor, unit reactor operator, teacher, parole hearing officer, case technician)? Give summary @ -No Was smoking cessation discussed for >3mins.? @ -No Was critical care preformed (if so, how long)? @ -No Were there social determinants of health that impacted care today? How? (Homelessness, low income, unemployed, alcoholism, drug addiction, transportation, low edu. Level, literacy, decrease access to med. care, halfway, rehab)? @ -No Was there de-escalation of care discussed even if they declined (Discuss DNR or withdrawal of care, Hospice)? DNR status @ -No What co-morbidities impacted this encounter? (DM, HTN, Smoking, COPD, CAD, Cancer, CVA, ARF, Chemo, Hep., AIDS, mental health diagnosis, sleep apnea, morbid obesity)? @ -None Was patient admitted / discharged? Hospital course, mention meds given and route, prescriptions, significant lab abnormalities, going to OR and other pertinent info. @ -Patient had a catheter replacement he completely drained 600 cc of urine in his bladder scan was virtually 0 and he felt considered better and he was without symptoms at this time Undiagnosed new problem with uncertain prognosis? @ -No Drug Therapy requiring intensive monitoring for toxicity (Heparin, Nitro, Insulin, Cardizem)? @ -No Were any procedures done? @ -No Diagnosis/symptom? @ -Catheter malfunction Acute, or Chronic, or Acute on Chronic? @ -Acute Uncomplicated (without systemic symptoms) or Complicated (systemic symptoms)? @ -Uncomplicated Side effects of treatment? @ -No Exacerbation, Progression, or Severe Exacerbation? @ -No Poses a threat to life or bodily function? How? (Chest pain, USA, MS, pneumonia, PE, COPD, DKA, ARF, appy, cholecystitis, CVA, Diverticulitis, Homicidal, Suicidal, threat to staff... and all critical care pts) @ -No Disposition Clinical Impression: Malfunction of Reid catheter Disposition: HOME SELF-CARE Condition: Good Instructions (If sedation given, give patient instructions): Reid Catheter P lacement and Care (ED) Is patient prescribed a controlled substance at d/c from ED?: No Referrals: Frances Quigley MD [Primary Care Provider] - 1-2 days Time of Disposition: 17:43
[2023-12-22 18:10] VITALS: BP 137/63; PULSE 91; RESP 16; TEMP 98.7
== END 2023-12-22 18:10 | disposition home or self-care (01) ==
LOC: EC 16:25
DX: T83.098A Other mechanical complication of other urinary catheter, initial encounter (principal); Z87.891 Personal history of nicotine dependence
CPT/HCPCS: 51702; 51798; 99283

== ENCOUNTER 2023-12-23 19:35 | Emergency (ER) | payer MEDICARE ==
--- NOTE | 2023-12-23 22:00 | ED ---
General Adult HPI - General Chief complaint: Recheck/Abnormal Lab/Rx Stated complaint: cath issues Time Seen by Provider: 12/23/23 20:18 Source: patient, RN notes reviewed Mode of arrival: wheelchair Limitations: no limitations - History of Present Illness Initial comments: 68-year-old male with a past medical history significant for bladder cancer status surgery few days ago. Reid was put in. Patient came yesterday due to the Reid malfunctioning. Upon initial discharge Reid was draining well however today noted that he had decreased drainage of it. Patient is currently on antibiotics. Has follow-up with his urologist in 3 days. Denies fever or chills. Denies chest pain or shortness of breath. No other complaints at this time. - Related Data Home Medications Medication Instructions Recorded Confirmed amLODIPine BESYLATE [Norvasc] 10 mg PO DAILY@1200 11/11/13 06/24/23 lisinopriL [Zestril] 10 mg PO QAM 11/02/21 06/24/23 traZODone HCL [Desyrel] 200 mg PO HS 11/02/21 06/24/23 Aspirin [Adult Low Dose Aspirin EC] 81 mg PO DAILY 04/28/23 06/24/23 Insulin Degludec [Tresiba] 24 units SQ QAM 04/28/23 06/24/23 Rosuvastatin [Crestor] 10 mg PO QAM 06/24/23 06/24/23 Tirzepatide [Mounjaro] 5 mg SQ WE 06/24/23 06/24/23 Previous Rx's Medication Instructions Recorded Cephalexin [Keflex] 500 mg PO Q8HR #15 cap 06/27/23 Ketorolac [Toradol] 10 mg PO Q6HR PRN #15 tab 06/27/23 Allergies Allergy/AdvReac Type Severity Reaction Status Date / Time No Known Allergies Allergy Verified 12/23/23 19:41 Review of Systems ROS Statement: Those systems with pertinent positive or pertinent negative responses have been documented in the HPI. ROS Other: All systems not noted in ROS Statement are negative. Past Medical History Past Medical History: Coronary Artery Disease (CAD), Chest Pain / Angina, Dementia, Diabetes Mellitus, Hearing Disorder / Deafness, Hyperlipidemia, Hypertension, Musculoskeletal Disorder Additional Past Medical History / Comment(s): CHRONIC BACK PAIN History of Any Multi-Drug Resistant Organisms: None Reported Past Surgical History: Heart Catheterization, Orthopedic Surgery Additional Past Surgical History / Comment(s): LT KNEE ARTHROSCOPY, lumbar epidural injection, vasectomy Past Anesthesia/Blood Transfusion Reactions: No Reported Reaction Past Psychological History: Anxiety, Depression Smoking Status: Former smoker, Never smoker Past Alcohol Use History: None Reported Past Drug Use History: None Reported - Past Family History Father Family Medical History: Musculoskeletal Disorder, Neurologic Disorder Additional Family Medical History / Comment(s): Father had Parkinsons. He is . Mother Family Medical History: Dementia Additional Family Medical History / Comment(s): Mother is . General Exam Limitations: no limitations General appearance: alert, in no apparent distress Eye exam: Present: normal appearance Neck exam: Present: normal inspection Respiratory exam: Present: normal lung sounds bilaterally Cardiovascular Exam: Present: regular rate GI/Abdominal exam: Present: soft, normal bowel sounds, other (No CVA tenderness to percussion bilaterally.). Absent: distended, tenderness, guarding, rebound, rigid Neurological exam: Present: alert, oriented X3 Skin exam: Present: warm, dry Course Vital Signs 12/23/23 19:36 Temperature 98.9 F Pulse Rate 95 Respiratory 18 Rate Blood Pressure 108/70 O2 Sat by Pulse 97 Oximetry Medical Decision Making - Medical Decision Making Was pt. sent in by a medical professional or institution ([employer] [facility], FINISHER COLD ROLLING, urgent care, hospital, or group home...) When possible be specific @ -No Did you speak to anyone other than the patient for history (EMS, parent, family, police, friend...)? What history was obtained from this source @ -No Did you review nursing and triage notes (agree or disagree)? Why? @ -I reviewed and agree with nursing and triage notes Were old charts reviewed (outside hosp., previous admission, EMS record, old EKG, old radiological studies, urgent care reports/EKG's, group home records)? Report findings @ -Reviewed prior history showing history of bladder cancer status post surgery and recent visit yesterday for the same complaints. Differential Diagnosis (chest pain, altered mental status, abdominal pain women, abdominal pain men, vaginal bleeding, weakness, fever, dyspnea, syncope, headache, dizziness, GI bleed, back pain, seizure, CVA, palpatations, mental health, musculoskeletal)? @ -Differential Abdominal Pain Men: Appendicitis, cholecystitis, diverticulosis, ischemic bowel, pancreatitis, hepatitis, UTI, gastroenteritis, AAA, incarcerated hernia, bowel obstruction, constipation, inflammatory bowel, hepatitis, peptic ulcer disease, splenic infarction, perforated viscus, testicular torsion, this is not meant to be an all-inclusive list EKG interpreted by me (3pts min.). @ -None X-rays interpreted by me (1pt min.). @ -None done CT interpreted by me (1pt min.). @ -None done U/S interpreted by me (1pt. min.). @ -None done What testing was considered but not performed or refused? (CT, X-rays, U/S, labs)? Why? @ -None What meds were considered but not given or refused? Why? @ -None Did you discuss the management of the patient with other professionals (professionals i.e. , PA, FINISHER COLD ROLLING, lab, RT, psych nurse, older adult social work specialist, dean of student services, teacher, detention officer, correctional case manager)? Give summary @ -No Was smoking cessation discussed for >3mins.? @ -No Was critical care preformed (if so, how long)? @ -No Were there social determinants of health that impacted care today? How? (Homelessness, low income, unemployed, alcoholism, drug addiction, transportation, low edu. Level, literacy, decrease access to med. care, shelter, rehab)? @ -No Was there de-escalation of care discussed even if they declined (Discuss DNR or withdrawal of care, Hospice)? DNR status @ -No What co-morbidities impacted this encounter? (DM, HTN, Smoking, COPD, CAD, Cancer, CVA, ARF, Chemo, Hep., AIDS, mental health diagnosis, sleep apnea, morbid obesity)? @ -None Was patient admitted / discharged? Hospital course, mention meds given and route, prescriptions, significant lab abnormalities, going to OR and other pertinent info. @ -Discharge 68-year-old male presented to the ED with complaints of urinary retention despite having a Reid catheter in. Bladder scan showed 218 cc. This was flushed and following Reid draining well after passage of clots. At this time patient would like to go home and would not like to wait for results of urinalysis. Patient is currently on antibiotics and he does have follow-up with his urologist in 3 days. Will notify patient of results of urine. Discharged home in stable condition. Advise close follow-up with his urologist as scheduled. Undiagnosed new problem with uncertain prognosis? @ -No Drug Therapy requiring intensive monitoring for toxicity (Heparin, Nitro, Insulin, Cardizem)? @ -No Were any procedures done? @ -No Diagnosis/symptom? @ -Urinary retention Acute, or Chronic, or Acute on Chronic? @ -Acute Uncomplicated (without systemic symptoms) or Complicated (systemic symptoms)? @ -Uncomplicated Side effects of treatment? @ -No Exacerbation, Progression, or Severe Exacerbation? @ -No Poses a threat to life or bodily function? How? (Chest pain, USA, [place], pneumonia, PE, COPD, DKA, ARF, appy, cholecystitis, CVA, Diverticulitis, Homicidal, Suicidal, threat to staff... and all critical care pts) @ -No Disposition Clinical Impression: Urinary retention Disposition: HOME SELF-CARE Condition: Good Additional Instructions: Please return to the Emergency Department if symptoms worsen or any other concerns. Please follow-up with urology. Is patient prescribed a controlled substance at d/c from ED?: No Referrals: Frances Quigley MD [Primary Care Provider] - 1-2 days Time of Disposition: 22:04
[2023-12-23 22:17] VITALS: BP 122/75; PULSE 61; RESP 16; TEMP 98.7
[2023-12-23 22:28] LABS: Appearance,Urine Cloudy (Clear); Bacteria,Urine Occasional /hpf; Bilirubin,Urine Negative (Negative); Blood,Urine Large (Negative); Color,Urine Light Red; Glucose,Urine (UA) Negative (Negative); Ketones,Urine Negative (Negative); Leukocyte Esterase,Urine Large (Negative); Mucus,Urine Rare /hpf; Nitrite,Urine Negative (Negative); Protein,Urine 2+ (Negative); RBC,Urine 22 /hpf (0-5); Specific Gravity,Urine 1.005 (1.001-1.035); Squamous Epithelial Cell,Urine <1 /hpf (0-4); Urobilinogen,Urine <2.0 mg/dL (<2.0); WBC,Urine 13 /hpf (0-5)
== END 2023-12-23 22:19 | disposition home or self-care (01) ==
LOC: EC 19:35
DX: R33.9 Retention of urine, unspecified (principal); Z87.891 Personal history of nicotine dependence
CPT/HCPCS: 51798; 81001; 99283

== ENCOUNTER → 2024-01-05 | Outpatient (CLI) | payer MEDICARE ==
[2024-01-05 12:29] LABS: African American GFR (CKD) 61 (>60 ml/min/1.73 sqM); Blood Urea Nitrogen 29 mg/dL (9-20); Non-African American GFR(CKD) 53 (>60 ml/min/1.73 sqM)
--- NOTE | 2024-01-05 13:57 | CT ---
EXAMINATION TYPE: CT chest w con CT DLP: 474.8 mGycm, Automated exposure control for dose reduction was used. DATE OF EXAM: 01/05/2024 1:16 PM COMPARISON: 02/28/2015 CLINICAL INDICATION:Male, 68 years old with history of C67.9 MALIGNANT NEOPLASM OF BLADDER, UNSPECIFI ED; [facility], Bladder Ca TECHNIQUE: Multiple axial images were obtained through the chest. Sagittal and coronal reformats were created for review. Contrast used:80 mL of Isovue 300 with IV Contrast (None if empty) Oral contrast used: (None if empty) FINDINGS: LUNGS/ PLEURA: The lung parenchyma appears unremarkable. AIRWAY: Patent and unremarkable. HEART: Size within normal limits. Atherosclerosis of the coronary arteries. MEDIASTINUM: No gross evidence of adenopathy. VASCULATURE: No aortic aneurysm. MUSCULOSKELETAL: No acute osseous abnormalities, multilevel degeneration changes throughout the spine . Left posterior rib 8 remote injury. SOFT TISSUES/LYMPH NODES: Unremarkable. LOWER NECK: No significant findings. UPPER ABDOMEN: Arterial phase enhancing lesion measuring 9 mm. Right adrenal myelolipoma measuring 15 mm. IMPRESSION: 1. No evidence for mass or lymphadenopathy. No evidence for metastatic disease. Left hepatic lobe ar terial phase enhancing lesion near the dome of the liver. This is stable from 02/28/2015 and likely be nign. 2. Right adrenal myelolipoma
--- NOTE | 2024-01-05 15:07 | CT ---
EXAMINATION TYPE: CT urogram wo/w con CT DLP: 4096.1 mGycm, Automated exposure control for dose reduction was used. DATE OF EXAM: 01/05/2024 2:15 PM COMPARISON: CT abdomen pelvis most recent from 05/12/2023. CLINICAL INDICATION:Male, 68 years old with history of C67.9 MALIGNANT NEOPLASM OF BLADDER, UNSPECIFI ED; [facility], Bladder Ca TECHNIQUE: Urogram with imaging of the abdomen and pelvis. Coronal and sagittal reformats were performed. 2D and 3D reconstructions are performed to assist visualization of the urinary tract on a separate workstat ion.r Contrast used:80 mL of Isovue 300 with IV Contrast, Oral contrast used: None. FINDINGS: LOWER CHEST: No significant findings. GENITOURINARY: RIGHT KIDNEY AND URETER: No calculi. No hydronephrosis or hydroureter. No renal mass or other lesions . No urothelial lesions: no filling defect, dilation, stricture or wall thickening. LEFT KIDNEY AND URETER: Mild left hydronephrosis secondary obstructing 6 oh calculus in the distal le ft ureter. Poor excretion of the left kidney. No additional calculi visualized. No renal solid masses identified. No urothelial lesions: no filling defect, dilation, stricture or wall thickening. URINARY BLADDER: Mild bladder wall thickening to 12 mm near the left ureterovesicular junction. Fat s tranding changes around the left bladder wall possibly microinvasion versus posttreatment change. REPRODUCTIVE: Unremarkable. ABDOMEN LIVER: Unremarkable. GALLBLADDER AND BILE DUCTS: Unremarkable PANCREAS: Unremarkable. SPLEEN: Unremarkable. ADRENAL GLANDS: Right adrenal myelolipoma measuring 15 mm. STOMACH AND BOWEL: . No evidence of bowel obstruction. Scattered colonic diverticula. PERITONEUM: No evidence of pneumoperitoneum, free fluid, or adenopathy. VASCULATURE: Moderate atherosclerotic calcifications are present throughout the abdominal aorta and i ts branches. No evidence of aortic aneurysm. MUSCULOSKELETAL: No acute osseous abnormalities LYMPH NODES: Prominent retroperitoneal left common iliac 9 mm in short axis lymph node. Left common i liac measuring 9 mm., Previously 4 mm 05/12/2023. SOFT TISSUE/ABDOMINAL WALL: Fat-containing umbilical hernia. IMPRESSION: 1. Mild left hydronephrosis secondary obstructing 6 oh calculus in the distal left ureter. There is poor excretion of the left kidney possibly due to obstructing calculus and more chronic renal dysfunc tion. Consider evaluation for removal obstructing calculus. 2. Bladder wall thickening near the left ureterovesicular junction possibly representing patient's b ladder malignancy. Mild fat stranding around the left bladder wall could represent occlusion versus p ostoperative change. 3. There is at least one prominent left common iliac artery lymph node which has increased in size a nd is concerning for malignancy.
== END | disposition home or self-care (01) ==
LOC: RADCTMAIN 11:55
PROVIDERS: ATTEND Urology
DX: C67.9 Malignant neoplasm of bladder, unspecified (principal); D17.79 Benign lipomatous neoplasm of other sites
CPT/HCPCS: 71260; 74178; 74400; 82565; 84520

== ENCOUNTER → 2024-01-12 | Outpatient (CLI) | payer MEDICARE ==
[2024-01-12 15:22] LABS: Basophils # (A) 0.08 X 10*3/uL (0.00-0.10); Basophils % (A) 1.3 %; Eosinophils # (A) 0.35 X 10*3/uL (0.04-0.35); Eosinophils % (A) 5.7 %; HCT 41.5 % (39.6-50.0); HGB 13.4 g/dL (13.0-17.0); Lymphocytes # (A) 1.83 X 10*3/uL (0.90-5.00); Lymphocytes % (A) 29.7 %; MCH 27.6 pg (27.0-32.0); MCHC 32.3 g/dL (32.0-37.0); MCV 85.6 FL (80.0-97.0); Mean Platelet Volume 10.7 FL (9.5-12.2); Monocytes # (A) 0.51 X 10*3/uL (0.20-1.00); Monocytes % (A) 8.3 %; NRBC Per 100 WBC 0 X 10*3/uL (0.00-0.01); Neutrophils # (A) 3.38 X 10*3/uL (1.80-7.70); Neutrophils % (A) 54.8 %; Platelet Count 239 X 10*3/uL (140-440); RBC 4.85 X 10*6/uL (4.40-5.60); RDW 15.1 % (11.5-14.5); WBC 6.16 X 10*3/uL (4.50-10.00)
[2024-01-12 15:55] LABS: BUN/Creat Ratio 15.69 Ratio (12.00-20.00); Blood Urea Nitrogen 20.4 mg/dL (9.0-27.0); Calcium 9.1 mg/dL (8.7-10.3); Carbon Dioxide 23.3 mmol/L (21.6-31.8); Chloride 105 mmol/L (96-109); Glucose 210 mg/dL (70-110); Sodium 139 mmol/L (135-145)
== END | disposition home or self-care (01) ==
LOC: LABPAT 11:34
PROVIDERS: ATTEND Urology
DX: Z01.812 Encounter for preprocedural laboratory examination (principal); N20.1 Calculus of ureter
CPT/HCPCS: 80048; 85025

== ENCOUNTER 2024-01-14 05:51 | Day surgery (SDC) | payer MEDICARE ==
--- NOTE | 2024-01-13 10:58 | P.HPIHPCON ---
History of Present Illness H&P Date: 01/13/24 Chief Complaint: Left ureteral stone This is a 68-year-old male with history of muscle invasive bladder cancer with plan to undergo a radical cystectomy at [facility]. Underwent CT urogram as part of his staging which showed evidence 6 mm distal ureteral stone. Discussed with him I do recommend proceeding with stone removal prior to his radical cystectomy. Discussed option of left-sided ureteroscopy with holmium laser, aware the risk which includes but not limited to bleeding, infection, injury to the ureter Consent for Procedure: I have explained the operation/procedure to the patient, including the risks, benefits, side effects, alternative therapies (including not receiving the proposed treatment or service), the likelihood of the patient achieving his/her goals, and potential recuperation problems for the procedure/sedation/analgesia, as well as any blood products, if indicated. I also explained to the patient the risks, benefits and side effects of the alternatives, as well as the risks related to not receiving the proposed procedure, care, treatment, or services. Past Medical History Past Medical History: Coronary Artery Disease (CAD), Cancer, Chest Pain / Angina, Diabetes Mellitus, Hearing Disorder / Deafness, Hyperlipidemia, Hypertension, Memory Impairment, Musculoskeletal Disorder Additional Past Medical History / Comment(s): CHRONIC BACK PAIN, bladder cancer 06/2023, wears hearing aids. kidney stone, can be unsteady on his feet cant bend over. History of Any Multi-Drug Resistant Organisms: None Reported Past Surgical History: Heart Catheterization, Orthopedic Surgery Additional Past Surgical History / Comment(s): LT KNEE ARTHROSCOPY, lumbar epidural injection, vasectomy Past Anesthesia/Blood Transfusion Reactions: No Reported Reaction Smoking Status: Former smoker - Past Family History Father Family Medical History: Musculoskeletal Disorder, Neurologic Disorder Additional Family Medical History / Comment(s): Father had Parkinsons. He is . Mother Family Medical History: Dementia Additional Family Medical History / Comment(s): Mother is . Medications and Allergies Home Medications Medication Instructions Recorded Confirmed Type amLODIPine BESYLATE [Norvasc] 10 mg PO DAILY 11/11/13 01/13/24 History lisinopriL [Zestril] 10 mg PO QAM 11/02/21 01/13/24 History traZODone HCL [Desyrel] 200 mg PO HS 11/02/21 01/13/24 History Aspirin [Adult Low Dose Aspirin EC] 81 mg PO DAILY 04/28/23 01/13/24 History Insulin Degludec [Tresiba] 24 units SQ QAM 04/28/23 01/13/24 History Rosuvastatin [Crestor] 10 mg PO QAM 06/24/23 01/13/24 History Tirzepatide [Mounjaro] 5 mg SQ SA 06/24/23 01/13/24 History Ciprofloxacin 500 mg PO BID 01/13/24 01/13/24 History Allergies Allergy/AdvReac Type Severity Reaction Status Date / Time No Known Allergies Allergy Verified 01/13/24 09:05 Surgical - Exam - General no distress, no pain - Eyes normal ocular movement, no pale - ENT normal nares, normal mucosa - Respiratory normal expansion, normal respiratory effort - Abdomen Abdomen: soft, non tender Assessment and Plan Assessment: OR for left-sided ureteroscopy, holmium laser lithotripsy, stone basketing and stent insertion
[2024-01-14] MEDS ORDERED: HYDROmorphone 0.5 MG/0.5 ML SYRINGE IVP PRN (07:00)
[2024-01-14] MEDS: LACTATED RINGERS 1,000 ML IV SCH (07:09)
[2024-01-14 07:11] LABS: Glucose,Whole Blood 95 mg/dL (70-110)
[2024-01-14] MEDS: ONDANSETRON 4 MG/2 ML VIAL IVP STA (07:11)
[2024-01-14] MEDS: IV FLUID CONTINUATION 1,000 ML IV ONE ×3 (07:13→09:49)
[2024-01-14] MEDS ORDERED: fentaNYL (PF) 50 MCG/ML 2 ML AMP ONE (07:25)
[2024-01-14] MEDS ORDERED: LIDOCAINE 1% INJ 10MG/ML (20 ML MDV) ONE (07:25)
[2024-01-14] MEDS ORDERED: PROPOFOL 10 MG/ML 20 ML VIAL IV ONE (07:25)
[2024-01-14] MEDS ORDERED: SUCCINYLCHOLINE CHLORIDE 200 MG/10 ML VIAL IV ONE (07:25)
[2024-01-14] MEDS ORDERED: MIDAZOLAM 2 MG/2 ML VIAL ONE (07:25)
[2024-01-14] MEDS ORDERED: PHENYLEPHRINE-0.9% NACL SYG 1,000 MCG/10 ML SYRINGE ONE (07:25)
[2024-01-14] MEDS ORDERED: GLYCOPYRROLATE 0.2 MG/ML 2 ML VIAL ONE (07:25)
[2024-01-14] MEDS: IOPAMIDOL-370 50ML BTL MISCELLANE ONE (08:20)
--- NOTE | 2024-01-14 08:37 | XR ---
EXAMINATION TYPE: XR KUB DATE OF EXAM: 01/14/2024 6:36 AM CLINICAL INDICATION:Male, 68 years old with history of kidney stone; COMPARISON: 02/12/2012 TECHNIQUE: One radiographic view of the abdomen was obtained. FINDINGS: The bowel gas pattern is nonspecific without dilated loops of small or large bowel. . Fecal material and gas are demonstrated throughout the colon and rectum. There is no evidence for organomegaly or pneumoperitoneum. The osseous structures are intact. Left renal calculi measuring up to 5 mm. Atherosclerosis of the arterial vasculature. IMPRESSION: 1. Calculus projecting over the left kidney. 2. Nonspecific bowel gas pattern without radiographic evidence for acute process.
--- NOTE | 2024-01-14 08:38 | P.OP ---
Date of Procedure: 01/14/24 Preoperative Diagnosis: Left ureteral stone, hydronephrosis Postoperative Diagnosis: Left hydronephrosis Procedure(s) Performed: Cystoscopy, left ureteroscopy, ureteral balloon dilation, stent insertion and bladder fulguration Anesthesia: TSERING Surgeon: Guille Greer Estimated Blood Loss (ml): 20 Pathology: none sent Condition: stable Disposition: PACU Indications for Procedure: This is a 68-year-old male with history of muscle invasive bladder cancer with plan to undergo a radical cystectomy at [facility]. Underwent CT urogram as part of his staging which showed evidence 6 mm distal ureteral stone. Discussed with him I do recommend proceeding with stone removal prior to his radical cystectomy. Discussed option of left-sided ureteroscopy with holmium laser, aware the risk which includes but not limited to bleeding, infection, injury to the ureter Operative Findings: Severe left hydroureteronephrosis, no stone was visualized along the course of the ureter Description of Procedure: Patient brought the operating room, general anesthesia was induced. He was prepped and draped in sterile fashion placed in a dorsolithotomy position. Cystoscopy with a 21 American sheath was inserted per urethra, cystoscopy was per formed which showed evidence of the previously resected bladder tumor, the left ureteral orifice was within the area of resection. I was able to visualize the left ureter orifice was unable to intubated with a guidewire using the cystoscope. At this point I switched to the semirigid ureteroscope which was advanced per urethra, I was able to visualize the area of the left ureteral orifice, of note there was significant edema surrounding it and significant narrowing right at the UVJ, was able to pass a wire through the scope and up into the left kidney, attempted to advance the scope but there was significant narrowing at that level. At this time the ureteroscope was withdrawn and a 15 American ureteral balloon dilator was advanced over the wire, the ureteral orifice was dilated under fluoroscopy to 15 American. At this time the semirigid ureteroscope was advanced per urethra and up the left ureteral orifice, I advanced the ureteroscope all the way up to the level of the UPJ which showed no evidence of stones, but there was significant dilation of the ureter, of note the ureter was dilated only with down to the UVJ. There was no evidence of edema at the distal ureter to be consistent with a stone. At this point the ureteroscope withdrawn and the cystoscope was backloaded over the wire, a 6 American by 26 cm stent was passed over the wire and into the left kidney, the proximal curl was visualized on fluoroscopy and the distal curl was visualized using the cystoscope. There was a hydronephrotic drip noticed. There was some evidence of diffuse bleeding at the previous area of resection, using the Bugbee as the area was fulgurated. At this point the bladder was emptied at the end of the case, the patient was awakened from anesthesia and taken to recovery in stable condition. No stone was visualized, hydronephrosis is most likely secondary to obstruction at the level of the UVJ secondary to his tumor
[2024-01-14 08:54] LABS: Glucose,Whole Blood 88 mg/dL (70-110)
[2024-01-14 08:56] VITALS: TEMP 97.8
[2024-01-14 09:14] VITALS: RESP 16
--- NOTE | 2024-01-14 09:23 | FL ---
EXAMINATION TYPE: FL guidance operating room Intraoperative/procedural fluoroscopic services were pro vided. Total fluoroscopy time is 27 8 seconds with a total of 6 submitted images to PACS. Please see the operative/procedural note for further details. DAP: [id number] mGym2
[2024-01-14 10:41] VITALS: BP 159/87; PULSE 61
== END 2024-01-14 11:17 | disposition home or self-care (01) ==
LOC: OR 05:51
PROVIDERS: ATTEND Urology
DX: N13.2 Hydronephrosis with renal and ureteral calculous obstruction (principal); E11.9 Type 2 diabetes mellitus without complications; E78.5 Hyperlipidemia, unspecified; I10 Essential (primary) hypertension; I25.10 Atherosclerotic heart disease of native coronary artery without angina pectoris; Z85.51 Personal history of malignant neoplasm of bladder; Z87.891 Personal history of nicotine dependence; Z79.899 Other long term (current) drug therapy; Z79.84 Long term (current) use of oral hypoglycemic drugs
CPT/HCPCS: 74018; 52332; C2625; C1894; C1758; C1769 ×3; J2250; J0330; J0690; J2405; J2001; J3010; J2704; Q9967; J2371; J1596

== ENCOUNTER → 2024-02-03 | Outpatient (CLI) | payer MEDICARE ==
[2024-02-03 14:16] LABS: Partial Thromboplastin Time 23.7 sec (22.0-30.0); Prothrombin Time 10.7 sec (10.0-12.5)
== END | disposition home or self-care (01) ==
LOC: LABWHC1 12:43
PROVIDERS: ATTEND Family Medicine
DX: Z01.812 Encounter for preprocedural laboratory examination (principal)
CPT/HCPCS: 36415; 85610; 85730

== ENCOUNTER 2024-09-08 11:38 | Emergency (ER) | payer MEDICARE ==
--- NOTE | 2024-09-08 12:03 | ED ---
General Adult HPI - General Chief complaint: Neuro Symptoms/Deficit Stated complaint: facial drooping Time Seen by Provider: 09/08/24 11:49 Source: patient, family, EMS, RN notes reviewed Mode of arrival: EMS Limitations: no limitations - History of Present Illness Initial comments: Patient is a 69-year-old male present to the emergency department with concerns with right facial weakness. Onset of symptoms was when he woke this morning. No symptoms when he went to sleep last night. Symptoms have been persistent. No headache. No confusion. No speech problems. No extremity weakness. No difficulty with walking. No history of similar symptoms previously. No recent illness. - Related Data Home Medications Medication Instructions Recorded Confirmed amLODIPine BESYLATE [Norvasc] 10 mg PO DAILY 11/11/13 01/14/24 lisinopriL [Zestril] 10 mg PO QAM 11/02/21 01/14/24 traZODone HCL [Desyrel] 200 mg PO HS 11/02/21 01/14/24 Aspirin [Adult Low Dose Aspirin EC] 81 mg PO DAILY 04/28/23 01/14/24 Insulin Degludec [Tresiba] 24 units SQ QAM 04/28/23 01/14/24 Rosuvastatin [Crestor] 10 mg PO QAM 06/24/23 01/14/24 Tirzepatide [Mounjaro] 5 mg SQ SA 06/24/23 01/13/24 Ciprofloxacin 500 mg PO BID 01/13/24 01/14/24 Previous Rx's Medication Instructions Recorded Ketorolac [Toradol] 10 mg PO Q6HR #10 tab 01/14/24 predniSONE 50 mg PO DAILY #7 tab 09/08/24 valACYclovir HCL [Valtrex] 1 tab PO TID #21 tablet 09/08/24 Allergies Allergy/AdvReac Type Severity Reaction Status Date / Time No Known Allergies Allergy Verified 09/08/24 11:56 Review of Systems ROS Statement: Those systems with pertinent positive or pertinent negative responses have been documented in the HPI. ROS Other: All systems not noted in ROS Statement are negative. Constitutional: Denies: fever Eyes: Denies: eye pain ENT: Denies: ear pain Respiratory: Denies: cough Cardiovascular: Denies: chest pain Endocrine: Denies: fatigue Gastrointestinal: Denies: abdominal pain Neurological: Reports: as per HPI. Denies: headache, confusion Past Medical History Past Medical History: Coronary Artery Disease (CAD), Chest Pain / Angina, Dementia, Diabetes Mellitus, Hearing Disorder / Deafness, Hyperlipidemia, Hypertension, Musculoskeletal Disorder Additional Past Medical History / Comment(s): CHRONIC BACK PAIN History of Any Multi-Drug Resistant Organisms: None Reported Past Surgical History: Heart Catheterization, Orthopedic Surgery Additional Past Surgical History / Comment(s): LT KNEE ARTHROSCOPY, lumbar epidural injection, vasectomy Past Anesthesia/Blood Transfusion Reactions: No Reported Reaction Past Psychological History: Anxiety, Depression Smoking Status: Former smoker, Never smoker Past Alcohol Use History: None Reported Past Drug Use History: None Reported - Past Family History Father Family Medical History: Musculoskeletal Disorder, Neurologic Disorder Additional Family Medical History / Comment(s): Father had Parkinsons. He is . Mother Family Medical History: Dementia Additional Family Medical History / Comment(s): Mother is . General Exam Limitations: no limitations General appearance: alert, in no apparent distress Head exam: Present: atraumatic Eye exam: Present: normal appearance, PERRL, EOMI ENT exam: Present: TM's normal bilaterally Neck exam: Present: normal inspection Respiratory exam: Present: normal lung sounds bilaterally Cardiovascular Exam: Present: regular rate, normal rhythm GI/Abdominal exam: Present: soft. Absent: tenderness Extremities exam: Present: normal inspection, full ROM. Absent: tenderness Neurological exam: Present: alert, oriented X3 Expanded Neurological exam: Present: protecting the airway Speech: Present: fluid speech Cranial nerves: EOM's Intact: Normal, Facial Sensation: Normal, Facial Palsy without Forehead Movement: Abnormal Right (Right facial weakness that includes the forehead) Sensory exam: Upper Extremity Light Touch: Normal, Lower Extremity Light Touch: Normal Motor strength exam: RUE: 5, LUE: 5, RLE: 5, LLE: 5 Eye Response: (4) open spontaneously Motor Response: (6) obeys commands Verbal Response: (5) oriented Psychiatric exam: Present: normal affect, normal mood Skin exam: Present: normal color Course Vital Signs 09/08/24 11:43 Temperature 98 F Pulse Rate 76 Respiratory 20 Rate Blood Pressure 122/61 O2 Sat by Pulse 97 Oximetry EKG Findings - EKG Results: EKG: interpreted by ERMD (Left axis. NE 250, AV block. First-degree. Inferior Q waves.), sinus rhythm, normal ST/T Medical Decision Making - Medical Decision Making Was pt. sent in by a medical professional or institution (, [employer], HELIC[employer]TER [employer]W CHIEF, urgent care, hospital, or fpc...) When possible be specific @ -No Did you speak to anyone other than the patient for history (EMS, parent, family, police, friend...)? What history was obtained from this source @ -Family is present to help provide history including onset Did you review nursing and triage notes (agree or disagree)? Why? @ -I reviewed and agree with nursing and triage notes Were old charts reviewed (outside hosp., previous admission, EMS record, old EKG, old radiological studies, urgent care reports/EKG's, fpc records)? Report findings @ -No old charts were reviewed Differential Diagnosis (chest pain, altered mental status, abdominal pain women, abdominal pain men, vaginal bleeding, weakness, fever, dyspnea, syncope, headache, dizziness, GI bleed, back pain, seizure, CVA, palpatations, mental health, musculoskeletal)? @ -Differential Weakness: Hypoglycemia, shock, sepsis, hyponatremia, anemia, infection, ND, ETOH, adverse medicine reaction, overdose, stroke, this is not meant to be an all-inclusive list. EKG interpreted by me (3pts min.). @ -As above X-rays interpreted by me (1pt min.). @ -None done CT interpreted by me (1pt min.). @ -CT scan of the brain without acute abnormality U/S interpreted by me (1pt. min.). @ -None done What testing was considered but not performed or refused? (CT, X-rays, U/S, labs)? Why? @ -None What meds were considered but not given or refused? Why? @ -None Did you discuss the management of the patient with other professionals (professionals i.e. , [employer], HELIC[employer]TER [employer]W CHIEF, lab, RT, psych nurse, social insurance administrator, skiver operator, teacher, chemistry technical officer, case maker)? Give summary @ -No Was smoking cessation discussed for >3mins.? @ -No Was critical care preformed (if so, how long)? @ -No Were there social determinants of health that impacted care today? How? (Homelessness, low income, unemployed, alcoholism, drug addiction, transportation, low edu. Level, literacy, decrease access to med. care, fdc, rehab)? @ -No Was there de-escalation of care discussed even if they declined (Discuss DNR or withdrawal of care, Hospice)? DNR status @ -No What co-morbidities impacted this encounter? (DM, HTN, Smoking, COPD, CAD, Cancer, CVA, ARF, Chemo, Hep., AIDS, mental health diagnosis, sleep apnea, morbid obesity)? @ -None Was patient admitted / discharged? Hospital course, mention meds given and route, prescriptions, significant lab abnormalities, going to OR and other pertinent info. @ -Patient presents with clinical presentation consistent with Gonzales's palsy. CT unremarkable. Patient will be discharged with steroids and antivirals. Patient and family updated on results and need for follow-up. Undiagnosed new problem with uncertain prognosis? @ -No Drug Therapy requiring intensive monitoring for toxicity (Heparin, Nitro, Insulin, Cardizem)? @ -No Were any procedures done? @ -No Diagnosis/symptom? @ -Gonzales's palsy Acute, or Chronic, or Acute on Chronic? @ -Acute Uncomplicated (without systemic symptoms) or Complicated (systemic symptoms)? @ -Default Side effects of treatment? @ -No Exacerbation, Progression, or Severe Exacerbation? @ -No Poses a threat to life or bodily function? How? (Chest pain, USA, ND, pneumonia, PE, COPD, DKA, ARF, appy, cholecystitis, CVA, Diverticulitis, Homicidal, Suicidal, threat to staff... and all critical care pts) @ -No Disposition Clinical Impression: Gonzales's palsy Disposition: HOME SELF-CARE Condition: Stable Instructions (If sedation given, give patient instructions): Gonzales Palsy (ED) Additional Instructions: Prescription sent to pharmacy. Please do follow-up with your primary care physician in the next couple days for recheck. Use [id number] lubricating eyedrops 4 times daily and prior to going to bed. Tape the right eye shut at bedtime to avoid scratching or injury. Return for confusion, increased weakness, worsening or changing symptoms or any other concerns. Prescriptions: predniSONE 50 mg PO DAILY #7 tab valACYclovir HCL [Valtrex] 1 tab PO TID #21 tablet Is patient prescribed a controlled substance at d/c from ED?: No Referrals: Frances Quigley MD [Primary Care Provider] - 1-2 days Time of Disposition: 12:45
--- NOTE | 2024-09-08 12:24 | CT ---
EXAMINATION TYPE: CT brain wo con CT DLP: 1098.4 mGycm, Automated exposure control for dose reduction was used. DATE OF EXAM: 09/08/2024 12:19 PM COMPARISON: CT brain 12/21/2019, MRI brain 09/18/2017, 02/06/2016, CT brain C-spine 06/23/2022 CLINICAL INDICATION:Male, 69 years old with history of r face weak, Right sided facial numbness. TECHNIQUE: Brain: Multiple axial CT images of the brain were obtained without IV contrast. . Coronal and sagitta l reformats reviewed. FINDINGS: Brain: Extra-axial spaces: No abnormal extra-axial fluid collections. Ventricular system: Within normal limits Cerebral parenchyma: Age-appropriate cerebral volume loss. No acute intraparenchymal hemorrhage or ma ss effect. The hair-white junction is well differentiated. Scattered hypoattenuating areas are seen within the periventricular white matter. Cerebellum: Unremarkable. Mass effect: No evidence of midline shift. Intracranial vasculature: Atherosclerotic calcifications of the intracranial vessels. Soft tissues: Normal. Calvarium/osseous structures: No depressed skull fracture. Paranasal sinuses and mastoid air cells: Clear Visualized orbits: Bilateral aphakia IMPRESSION: 1. No acute intracranial process. 2. Nonspecific minimal white matter changes, likely secondary to chronic small vessel ischemic diseas e. [facility], , 09/08/2024 12:22 PM
[2024-09-08 13:10] VITALS: BP 127/91; PULSE 64; RESP 18; TEMP 98.2
== END 2024-09-08 13:01 | disposition home or self-care (01) ==
LOC: EC 11:38
DX: G51.0 Bell's palsy (principal); F17.200 Nicotine dependence, unspecified, uncomplicated
CPT/HCPCS: 70450; 93005; 99284

== ENCOUNTER 2024-11-09 14:45 | Emergency (ER) | payer MEDICARE ==
--- NOTE | 2024-11-09 15:23 | ED ---
General Adult HPI - General Chief complaint: Shortness of Breath Stated complaint: SOB,high blood pressure Time Seen by Provider: 11/09/24 14:57 Source: patient Mode of arrival: wheelchair Limitations: no limitations - History of Present Illness Initial comments: Patient is a pleasant 69-year-old gentleman past medical history of bladder cancer status post bladder removal presenting today for hypotension and shortness of breath. Patient is currently asymptomatic and denies complaints. He was seen by his cancer doctor yesterday being evaluated to start chemotherapy and was noted to be hypotensive, hypoxic and tachycardic. At that time patient and his were directed to come to the emergency department for further evaluation however patient's states that upon returning home they did not feel it coming to the ER so came in this morning. Patient states over the last 3 nights he has had a few episodes of nonbloody nonbilious emesis in the evening. Over the last 2 weeks he has had dark tarry stools. Denies chest pain or abdominal pain. The patient currently denies shortness of breath. Denies fevers or chills. Denies cloudy urine. States he has had a few loose stools a day for the last 3 days as well. Denies dizziness or lightheadedness. Is not on blood thinners. No history of prior PE. No recent travel surgeries or hos pitalizations. Patient is a non-smoker. Does not wear oxygen at home - Related Data Home Medications Medication Instructions Recorded Confirmed amLODIPine BESYLATE [Norvasc] 10 mg PO DAILY 11/11/13 01/14/24 lisinopriL [Zestril] 10 mg PO QAM 11/02/21 01/14/24 traZODone HCL [Desyrel] 200 mg PO HS 11/02/21 01/14/24 Aspirin [Adult Low Dose Aspirin EC] 81 mg PO DAILY 04/28/23 01/14/24 Insulin Degludec [Tresiba] 24 units SQ QAM 04/28/23 01/14/24 Rosuvastatin [Crestor] 10 mg PO QAM 06/24/23 01/14/24 Tirzepatide [Mounjaro] 5 mg SQ SA 06/24/23 01/13/24 Ciprofloxacin 500 mg PO BID 01/13/24 01/14/24 Previous Rx's Medication Instructions Recorded Ketorolac [Toradol] 10 mg PO Q6HR #10 tab 01/14/24 predniSONE 50 mg PO DAILY #7 tab 09/08/24 valACYclovir HCL [Valtrex] 1 tab PO TID #21 tablet 09/08/24 Cephalexin [Keflex] 500 mg PO Q6HR 10 Days #4 cap 11/09/24 Cephalexin [Keflex] 500 mg PO Q6HR 9 Days #36 cap 11/09/24 Allergies Allergy/AdvReac Type Severity Reaction Status Date / Time No Known Allergies Allergy Verified 11/09/24 14:54 Review of Systems ROS Statement: Those systems with pertinent positive or pertinent negative responses have been documented in the HPI. ROS Other: All systems not noted in ROS Statement are negative. Past Medical History Past Medical History: Coronary Artery Disease (CAD), Chest Pain / Angina, Dementia, Diabetes Mellitus, Hearing Disorder / Deafness, Hyperlipidemia, Hypertension, Musculoskeletal Disorder Additional Past Medical History / Comment(s): CHRONIC BACK PAIN History of Any Multi-Drug Resistant Organisms: None Reported Past Surgical History: Heart Catheterization, Orthopedic Surgery Additional Past Surgical History / Comment(s): LT KNEE ARTHROSCOPY, lumbar epidural injection, vasectomy Past Anesthesia/Blood Transfusion Reactions: No Reported Reaction Past Psychological History: Anxiety, Depression Smoking Status: Former smoker, Never smoker Past Alcohol Use History: None Reported Past Drug Use History: None Reported - Past Family History Father Family Medical History: Musculoskeletal Disorder, Neurologic Disorder Additional Family Medical History / Comment(s): Father had Parkinsons. He is . Mother Family Medical History: Dementia Additional Family Medical History / Comment(s): Mother is . General Exam - General Exam Comments Initial Comments: PE: CONSTITUTIONAL: [no apparent distress, well appearing] SKIN: [warm, dry, no jaundice, hives or petechiae] EYES:[ pupils are equally round, extraocular movements intact without nystagmus, clear conjunctiva, non-icteric sclera] HENT: [normocephalic, atraumatic, moist mucus membranes, oropharynx clear wit hout exudates] NECK: , [Full range of motion, normal appearance] PULMONARY: [Questionable scant wheeze in the left midlung field otherwise no rhonchi, or rales, normal excursion, no accessory muscle use and no stridor] CARDIOVASCULAR:[ regular rate, rhythm, normal S1 and S2. No appreciated murmurs, rubs or gallops. Strong radial pulses with intact distal perfusion. No lower extremity edema] GASTROINTESTINAL: [soft, active bowel sounds throughout, non-tender, non- distended, no palpable masses, no rebound or guarding. No hepatosplenomegaly, urostomy bag in place light yellow urine, rectal exam was performed with RN, Leighann at bedside, showed light green stool,] GENITOURINARY: MUSCULOSKELETAL: [Extremities have no gross deformity, no edema, redness, or swelling. No calf swelling ] NEUROLOGIC: [_a/o x 3, GCS 15, normal mentation and speech. Moves all extremities x 4 without motor or sensory deficit] PSYCHIATRIC:[ _normal mood and affect, thought process is clear and linear] Limitations: no limitations Course Vital Signs 11/09/24 11/09/24 11/09/24 14:48 15:00 15:01 Pulse Rate 79 Respiratory 22 30 H Rate Blood Pressure 87/61 O2 Sat by Pulse 85 L 76 L Oximetry 11/09/24 11/09/24 11/09/24 16:00 16:28 16:40 Pulse Rate 81 80 83 Respiratory 20 Rate Blood Pressure 85/61 O2 Sat by Pulse 88 L Oximetry EKG Findings - EKG Comments: EKG Findings:: Sinus rhythm, rate 87 bpm intervals within acceptable limits, no significant ST elevations or depressions, T wave inversion lead V3, no arrhythmia Medical Decision Making - Medical Decision Making Was pt. sent in by a medical professional or institution ([facility], DIETITIAN CONSULTANT, urgent care, hospital, or assisted...) When possible be specific @ -Patient was sent in by his oncologist yesterday, after being seen there and again noted to be hypoxic and tachycardic and hypotensive Did you speak to anyone other than the patient for history (EMS, parent, family, police, friend...)? What history was obtained from this source @ -No Did you review nursing and triage notes (agree or disagree)? Why? @ -I reviewed nursing and triage notes-disagree and that patient currently denies shortness of breath, lightheadedness or dizziness Were old charts reviewed (outside hosp., previous admission, EMS record, old EKG, old radiological studies, urgent care reports/EKG's, assisted records)? Report findings @ -Medical records reviewed Differential Diagnosis (chest pain, altered mental status, abdominal pain women, abdominal pain men, vaginal bleeding, weakness, fever, dyspnea, syncope, headache, dizziness, GI bleed, back pain, seizure, CVA, palpatations, mental health, musculoskeletal)? @Differential Dyspnea: Coronary syndrome, arrhythmia, tamponade, asthma, COPD, pulmonary embolism, pneumonia, pneumothorax, pulmonary effusion, anaphylaxis, diabetic ketoacidosis, flailed chest, pulmonary contusion, diaphragmatic rupture, anemia, neuromuscular, this is not meant to be an all-inclusive list. EKG interpreted by me (3pts min.). @ -As above X-rays interpreted by me (1pt min.). @Personally reviewed chest x-ray see no evidence of consolidations, pleural effusions or pneumothorax agree with radiologist interpretation CT interpreted by me (1pt min.). @ -None done U/S interpreted by me (1pt. min.). @ -None done What testing was considered but not performed or refused? (CT, X-rays, U/S, labs)? Why? @CT PE study was considered however patient has JORGE with GFR of 26 therefore VQ scan will need to be obtained instead What meds were considered but not given or refused? Why? @ -None Did you discuss the management of the patient with other professionals (professionals i.e. , PA, DIETITIAN CONSULTANT, lab, RT, psych nurse, social staff worker, kindergarten teacher, teacher, head correction officer, senior case manager)? Give summary @ -No Was smoking cessation discussed for >3mins.? @ -No Was critical care preformed (if so, how long)? @Yes, 35 minutes Were there social determinants of health that impacted care today? How? (Homelessness, low income, unemployed, alcoholism, drug addiction, transportation, low edu. Level, literacy, decrease access to med. care, half-way, rehab)? @ -No Was there de-escalation of care discussed even if they declined (Discuss DNR or withdrawal of care, Hospice)? @ -No What co-morbidities impacted this encounter? (DM, HTN, Smoking, COPD, CAD, Cancer, CVA, ARF, Chemo, Hep., AIDS, mental health diagnosis, sleep apnea, morbid obesity)? @Bladder cancer Was patient admitted / discharged? Hospital course, mention meds given and route, prescriptions, significant lab abnormalities, going to OR and other pertinent info. Left AGAINST MEDICAL ADVICE -this is a pleasant 69-year gentleman presenting today for hypoxia and hypotension. On assessment patient is well-appearing in no acute distress. Pulse ox on arrival 75% on room air. Patient placed on 3 L ox nasal cannula. Exam was significant for questionable scant wheeze in the left midlung field otherwise lungs are clear to auscultation with good air mo vement bilaterally. Patient is hypotensive, BP 87/61, not tachycardic, afebrile. On recheck upon rooming BP 106/51. Will obtain broad workup, include sepsis labs, IV fluids to be administered, chest XR, d dimer, cardiac labs, UA. Anticipate admission. Stool occult blood is negative. Hemoglobin 11.9, previously was 13.7. Patient also noted to have an JORGE with creatinine of 2.4, GFR of 26. For this reason CT PE study order was canceled, chest x-ray was added, dimer was added to blood work. Patient does have blood white blood cell count of 20,000, I suspect hypoxia may be secondary to pneumonia vs uti however chest x-ray will be obtained to further evaluate. Urinalysis showed trace blood, large leukocyte esterase, 116 white cells, few white cell clumps, occasional bacteria and few budding yeast. Patient given fluconazole and Rocephin. Plan for admission due to JORGE, concern for sepsis, V/Q scan. Updated patient and to findings and discussed plan for admission, however patient requesting to be discharged. I discussed with the patient his elevated D-dimer, which could indicate pulmonary embolism and need for further imaging for this, discussed decreased kidney function, concern for infection, hypoxemia with need for oxygen therapy and further evaluation. I discussed with him that if left unevaluated or untreated he could suffer serious disability, renal failure, or other complications if left untreated. Patient is AO x 4, able to explain back to me in his own words understanding of risk of leaving its medical advice. I asked the patient if there is anything else I could do to help him want to stay in the hospital however he politely declined, stating he wished to be discharge. Patient is of sound mind and able to make his own medical decisions and so was discharged with medical advice. Undiagnosed new problem with uncertain prognosis? @ -No Drug Therapy requiring intensive monitoring for toxicity (Heparin, Nitro, Insulin, Cardizem)? @ -No Were any procedures done? @ -No Diagnosis/symptom? UTI, sepsis, JORGE, elevated D-dimer Acute, or Chronic, or Acute on Chronic? Acute Uncomplicated (without systemic symptoms) or Complicated (systemic symptoms)? @ -Complicated Side effects of treatment? @ -No Exacerbation, Progression, or Severe Exacerbation? @ -No Poses a threat to life or bodily function? How? (Chest pain, USA, PA, pneumonia, PE, COPD, DKA, ARF, appy, cholecystitis, CVA, Diverticulitis, Homicidal, Suicidal, threat to staff... and all critical care pts) Yes - Lab Data Result diagrams: 11/09/24 15:17 11/09/24 15:17 Lab Results 11/09/24 11/09/24 11/09/24 Range/Units 15:17 15:17 15:17 WBC 20.90 H (4.50-10.00) 10*3/uL RBC 4.34 L (4.40-5.60) 10*6/uL Hgb 11.9 L (13.0-17.0) g/dL Hct 35.8 L (39.6-50.0) % MCV 82.5 (80.0-97.0) fL MCH 27.4 (27.0-32.0) pg MCHC 33.2 (32.0-37.0) g/dL Plt Count 457 H (140-440) 10*3/uL MPV 9.8 (9.5-12.2) fL Immature Gran % (Auto) 1.0 % Neutrophils % 80.9 % Lymphocytes % 9.9 % Monocytes % 7.4 % Eosinophils % 0.4 % Basophils % 0.4 % Immature Gran # 0.20 H (0.00-0.04) 10*3/uL Neutrophils # 16.91 H (1.80-7.70) 10*3/uL Lymphocytes # 2.06 (0.90-5.00) 10*3/uL Monocytes # 1.55 H (0.20-1.00) 10*3/uL Eosinophils # 0.09 (0.04-0.35) 10*3/uL Basophils # 0.09 (0.00-0.10) 10*3/uL PT 11.9 (10.0-12.5) sec INR 1.1 (<1.2) APTT 25.3 (22.0-30.0) sec D-Dimer (<0.60) mg/L FEU Sodium (137-145) mmol/L Potassium (3.5-5.1) mmol/L Chloride (98-107) mmol/L Carbon Dioxide (22-30) mmol/L Anion Gap mmol/L BUN (9-20) mg/dL Creatinine (0.66-1.25) mg/dL Est GFR (CKD-EPI)AfAm (>60 ml/min/1.73 sqM) Est GFR (CKD-EPI)NonAf (>60 ml/min/1.73 sqM) Glucose (74-99) mg/dL Plasma Lactic Acid Elvis (0.7-2.0) mmol/L Calcium (8.4-10.2) mg/dL Magnesium (1.6-2.3) mg/dL Total Bilirubin (0.2-1.3) mg/dL AST (17-59) U/L ALT (4-49) U/L Alkaline Phosphatase (38-126) U/L Troponin I (0.000-0.034) ng/mL NT-Pro-B Natriuret Pep pg/mL Total Protein (6.3-8.2) g/dL Albumin (3.5-5.0) g/dL Urine Color Colorless Urine Appearance Turbid (Clear) Urine pH 7.0 (5.0-8.0) Ur Specific Ogilvie 1.009 (1.001-1.035) Urine Protein Trace H (Negative) Urine Glucose (UA) Negative (Negative) Urine Ketones Negative (Negative) Urine Blood Trace H (Negative) Urine Nitrite Negative (Negative) Urine Bilirubin Negative (Negative) Urine Urobilinogen <2.0 (<2.0) mg/dL Ur Leukocyte Esterase Large H (Negative) Urine RBC 3 (0-5) /hpf Urine WBC 116 H (0-5) /hpf Urine WBC Clumps Few H (None) /hpf Ur Squamous Epith Cells <1 (0-4) /hpf Urine Bacteria Occasional H (None) /hpf Urine Yeast (Budding) Few H (None) /hpf Stool Occult Blood (Negative) Influenza Type A (PCR) (Not Detectd) Influenza Type B (PCR) (Not Detectd) RSV (PCR) (Not Detectd) SARS-CoV-2 (PCR) (Not Detectd) 11/09/24 11/09/24 11/09/24 Range/Units 15:17 15:17 15:17 WBC (4.50-10.00) 10*3/uL RBC (4.40-5.60) 10*6/uL Hgb (13.0-17.0) g/dL Hct (39.6-50.0) % MCV (80.0-97.0) fL MCH (27.0-32.0) pg MCHC (32.0-37.0) g/dL Plt Count (140-440) 10*3/uL MPV (9.5-12.2) fL Immature Gran % (Auto) % Neutrophils % % Lymphocytes % % Monocytes % % Eosinophils % % Basophils % % Immature Gran # (0.00-0.04) 10*3/uL Neutrophils # (1.80-7.70) 10*3/uL Lymphocytes # (0.90-5.00) 10*3/uL Monocytes # (0.20-1.00) 10*3/uL Eosinophils # (0.04-0.35) 10*3/uL Basophils # (0.00-0.10) 10*3/uL PT (10.0-12.5) sec INR (<1.2) APTT (22.0-30.0) sec D-Dimer (<0.60) mg/L FEU Sodium 130 L (137-145) mmol/L Potassium 3.4 L (3.5-5.1) mmol/L Chloride 101 (98-107) mmol/L Carbon Dioxide 13 L (22-30) mmol/L Anion Gap 16 mmol/L BUN 36 H (9-20) mg/dL Creatinine 2.40 H (0.66-1.25) mg/dL Est GFR (CKD-EPI)AfAm 30 (>60 ml/min/1.73 sqM) Est GFR (CKD-EPI)NonAf 26 (>60 ml/min/1.73 sqM) Glucose 212 H (74-99) mg/dL Plasma Lactic Acid Elvis 2.0 (0.7-2.0) mmol/L Calcium 8.9 (8.4-10.2) mg/dL Magnesium 1.8 (1.6-2.3) mg/dL Total Bilirubin 0.8 (0.2-1.3) mg/dL AST 13 L (17-59) U/L ALT 10 (4-49) U/L Alkaline Phosphatase 141 H (38-126) U/L Troponin I <0.012 (0.000-0.034) ng/mL NT-Pro-B Natriuret Pep 1190 pg/mL Total Protein 7.2 (6.3-8.2) g/dL Albumin 3.5 (3.5-5.0) g/dL Urine Color Urine Appearance (Clear) Urine pH (5.0-8.0) Ur Specific Ogilvie (1.001-1.035) Urine Protein (Negative) Urine Glucose (UA) (Negative) Urine Ketones (Negative) Urine Blood (Negative) Urine Nitrite (Negative) Urine Bilirubin (Negative) Urine Urobilinogen (<2.0) mg/dL Ur Leukocyte Esterase (Negative) Urine RBC (0-5) /hpf Urine WBC (0-5) /hpf Urine WBC Clumps (None) /hpf Ur Squamous Epith Cells (0-4) /hpf Urine Bacteria (None) /hpf Urine Yeast (Budding) (None) /hpf Stool Occult Blood (Negative) Influenza Type A (PCR) (Not Detectd) Influenza Type B (PCR) (Not Detectd) RSV (PCR) (Not Detectd) SARS-CoV-2 (PCR) (Not Detectd) 11/09/24 11/09/24 11/09/24 Range/Units 15:17 15:17 15:17 WBC (4.50-10.00) 10*3/uL RBC (4.40-5.60) 10*6/uL Hgb (13.0-17.0) g/dL Hct (39.6-50.0) % MCV (80.0-97.0) fL MCH (27.0-32.0) pg MCHC (32.0-37.0) g/dL Plt Count (140-440) 10*3/uL MPV (9.5-12.2) fL Immature Gran % (Auto) % Neutrophils % % Lymphocytes % % Monocytes % % Eosinophils % % Basophils % % Immature Gran # (0.00-0.04) 10*3/uL Neutrophils # (1.80-7.70) 10*3/uL Lymphocytes # (0.90-5.00) 10*3/uL Monocytes # (0.20-1.00) 10*3/uL Eosinophils # (0.04-0.35) 10*3/uL Basophils # (0.00-0.10) 10*3/uL PT (10.0-12.5) sec INR (<1.2) APTT (22.0-30.0) sec D-Dimer 1.53 H (<0.60) mg/L FEU Sodium (137-145) mmol/L Potassium (3.5-5.1) mmol/L Chloride (98-107) mmol/L Carbon Dioxide (22-30) mmol/L Anion Gap mmol/L BUN (9-20) mg/dL Creatinine (0.66-1.25) mg/dL Est GFR (CKD-EPI)AfAm (>60 ml/min/1.73 sqM) Est GFR (CKD-EPI)NonAf (>60 ml/min/1.73 sqM) Glucose (74-99) mg/dL Plasma Lactic Acid Elvis (0.7-2.0) mmol/L Calcium (8.4-10.2) mg/dL Magnesium (1.6-2.3) mg/dL Total Bilirubin (0.2-1.3) mg/dL AST (17-59) U/L ALT (4-49) U/L Alkaline Phosphatase (38-126) U/L Troponin I (0.000-0.034) ng/mL NT-Pro-B Natriuret Pep pg/mL Total Protein (6.3-8.2) g/dL Albumin (3.5-5.0) g/dL Urine Color Urine Appearance (Clear) Urine pH (5.0-8.0) Ur Specific Ogilvie (1.001-1.035) Urine Protein (Negative) Urine Glucose (UA) (Negative) Urine Ketones (Negative) Urine Blood (Negative) Urine Nitrite (Negative) Urine Bilirubin (Negative) Urine Urobilinogen (<2.0) mg/dL Ur Leukocyte Esterase (Negative) Urine RBC (0-5) /hpf Urine WBC (0-5) /hpf Urine WBC Clumps (None) /hpf Ur Squamous Epith Cells (0-4) /hpf Urine Bacteria (None) /hpf Urine Yeast (Budding) (None) /hpf Stool Occult Blood Negative (Negative) Influenza Type A (PCR) Not Detected (Not Detectd) Influenza Type B (PCR) Not Detected (Not Detectd) RSV (PCR) Not Detected (Not Detectd) SARS-CoV-2 (PCR) Not Detected (Not Detectd) Disposition Clinical Impression: Urinary tract infection, Elevated d-dimer, Sepsis, Acute hypoxemic respiratory failure, JORGE (acute kidney injury) Disposition: LEFT AGAINST MEDICAL ADVICE Prescriptions: Cephalexin [Keflex] 500 mg PO Q6HR 10 Days #4 cap Cephalexin [Keflex] 500 mg PO Q6HR 9 Days #36 cap Is patient prescribed a controlled substance at d/c from ED?: No Referrals: Frances Quigley MD [Primary Care Provider] - 1-2 days
[2024-11-09 15:29] LABS: Basophils # (A) 0.09 10*3/uL (0.00-0.10); Basophils % (A) 0.4 %; Eosinophils # (A) 0.09 10*3/uL (0.04-0.35); Eosinophils % (A) 0.4 %; HCT 35.8 % (39.6-50.0); HGB 11.9 g/dL (13.0-17.0); Lymphocytes # (A) 2.06 10*3/uL (0.90-5.00); Lymphocytes % (A) 9.9 %; MCH 27.4 pg (27.0-32.0); MCHC 33.2 g/dL (32.0-37.0); MCV 82.5 fL (80.0-97.0); Mean Platelet Volume 9.8 fL (9.5-12.2); Monocytes # (A) 1.55 10*3/uL (0.20-1.00); Monocytes % (A) 7.4 %; Neutrophils # (A) 16.91 10*3/uL (1.80-7.70); Neutrophils % (A) 80.9 %; Platelet Count 457 10*3/uL (140-440); RBC 4.34 10*6/uL (4.40-5.60); RDW 14.8 % (11.5-14.5)
[2024-11-09 15:39] LABS: INR 1.1 (<1.2); Partial Thromboplastin Time 25.3 sec (22.0-30.0); Prothrombin Time 11.9 sec (10.0-12.5)
[2024-11-09 15:47] LABS: ALT 10 U/L (4-49); AST 13 U/L (17-59); African American GFR (CKD) 30 (>60 ml/min/1.73 sqM); Albumin 3.5 g/dL (3.5-5.0); Alkaline Phosphatase 141 U/L (38-126); Anion Gap 16 mmol/L; Blood Urea Nitrogen 36 mg/dL (9-20); Calcium 8.9 mg/dL (8.4-10.2); Carbon Dioxide 13 mmol/L (22-30); Chloride 101 mmol/L (98-107); Glucose 212 mg/dL (74-99); Magnesium 1.8 mg/dL (1.6-2.3); Non-African American GFR(CKD) 26 (>60 ml/min/1.73 sqM); Potassium 3.4 mmol/L (3.5-5.1); Sodium 130 mmol/L (137-145); Total Bilirubin 0.8 mg/dL (0.2-1.3); Total Protein 7.2 g/dL (6.3-8.2)
[2024-11-09 15:52] LABS: Appearance,Urine Turbid (Clear); Bacteria,Urine Occasional /hpf; Bilirubin,Urine Negative (Negative); Blood,Urine Trace (Negative); Budding Yeast,Urine Few /hpf; Color,Urine Colorless; Glucose,Urine (UA) Negative (Negative); Ketones,Urine Negative (Negative); Leukocyte Esterase,Urine Large (Negative); Nitrite,Urine Negative (Negative); Protein,Urine Trace (Negative); RBC,Urine 3 /hpf (0-5); Specific Gravity,Urine 1.009 (1.001-1.035); Squamous Epithelial Cell,Urine <1 /hpf (0-4); Urobilinogen,Urine <2.0 mg/dL (<2.0); WBC,Urine 116 /hpf (0-5)
[2024-11-09 15:55] LABS: NT-Pro-B-Type Natriuretic Pept 1190 pg/mL
[2024-11-09 16:00] LABS: Influenza A Not Detected (Not Detectd); Influenza B Not Detected (Not Detectd); RSV Not Detected (Not Detectd)
[2024-11-09] MEDS: SODIUM CHLORIDE 0.9% 1,000 ML IV ONE (16:08)
[2024-11-09] MEDS: LACTATED RINGERS 1,000 ML IV ONE (16:11)
[2024-11-09 16:14] VITALS: BP 85/61; RESP 20
[2024-11-09] MEDS: IPRATROPIUM-ALBUTEROL 3 ML NEB INHALATION STA (16:26)
[2024-11-09 16:40] VITALS: PULSE 83
--- NOTE | 2024-11-09 17:14 | XR ---
EXAMINATION TYPE: XR chest 2V DATE OF EXAM: 11/09/2024 5:04 PM COMPARISON: None. CLINICAL INDICATION: Male, 69 years old with history of Difficulty breathing , TECHNIQUE: XR chest 2V view(s) obtained. FINDINGS: The heart size is normal. The pulmonary vasculature is normal. The lungs are clear. Port is present on the right with the tip in the superior vena cava region IMPRESSION: 1. No acute pulmonary process. [facility], Workstation: [facility], 11/09/2024 5:11 PM
[2024-11-09] MEDS: AZITHROMYCIN 500 MG in SODIUM CHLORIDE 0.9% 250 ML IVPB STA (17:51)
[2024-11-09] MEDS: FLUCONAZOLE 150 MG TAB PO STA (17:51)
== END 2024-11-09 17:53 | disposition home or self-care (01) ==
LOC: EC 14:45
DX: N39.0 Urinary tract infection, site not specified (principal); R79.89 Other specified abnormal findings of blood chemistry; A41.9 Sepsis, unspecified organism; J96.01 Acute respiratory failure with hypoxia; N17.9 Acute kidney failure, unspecified; Z85.51 Personal history of malignant neoplasm of bladder; Z11.52 Encounter for screening for COVID-19; Z87.891 Personal history of nicotine dependence
CPT/HCPCS: 36415; 94640; 93005; 85379; 83880; 80053; 83605; 83735; 84484; 85025; 85610; 85730; 82272; 81001; 87040; 87086; 87077; 87186; 87636; 71046; 99291; 96374; 96375; 96361; J1642; J0696

== ENCOUNTER 2024-11-23 17:46 | Observation (INO) | payer MEDICARE ==
[2024-11-23 17:52] VITALS: RESP 20
--- NOTE | 2024-11-23 17:57 | ED ---
Nausea/Vomiting/Diarrhea HPI - General Chief complaint: Nausea/Vomiting/Diarrhea Stated complaint: Vomiting Time Seen by Provider: 11/23/24 17:56 Source: patient, RN notes reviewed, old records reviewed, Caregiver Mode of arrival: ambulatory Limitations: no limitations - History of Present Illness Initial comments: This is a 69-year-old male for nausea vomiting abdominal pain shortness of breath weakness dehydration multiple ER visits and primary care visits in the last week even yesterday. Patient is without fever without chest pain occasional abdominal pain MD complaint: nausea, vomiting, diarrhea, abdominal pain -: days(s) Location: diffuse Radiation: none Severity: moderate Severity scale (1-10): 5 Consistency: constant Improves with: none Worsens with: none Context: sick contacts Associated Symptoms: loss of appetite, malaise, shortness of breath, weakness - Related Data Home Medications Medication Instructions Recorded Confirmed amLODIPine BESYLATE [Norvasc] 10 mg PO DAILY 11/11/13 01/14/24 lisinopriL [Zestril] 10 mg PO QAM 11/02/21 01/14/24 traZODone HCL [Desyrel] 200 mg PO HS 11/02/21 01/14/24 Aspirin [Adult Low Dose Aspirin EC] 81 mg PO DAILY 04/28/23 01/14/24 Insulin Degludec [Tresiba] 24 units SQ QAM 04/28/23 01/14/24 Rosuvastatin [Crestor] 10 mg PO QAM 06/24/23 01/14/24 Tirzepatide [Mounjaro] 5 mg SQ SA 06/24/23 01/13/24 Ciprofloxacin 500 mg PO BID 01/13/24 01/14/24 Previous Rx's Medication Instructions Recorded Ketorolac [Toradol] 10 mg PO Q6HR #10 tab 01/14/24 predniSONE 50 mg PO DAILY #7 tab 09/08/24 valACYclovir HCL [Valtrex] 1 tab PO TID #21 tablet 09/08/24 Cephalexin [Keflex] 500 mg PO Q6HR 10 Days #4 cap 11/09/24 Cephalexin [Keflex] 500 mg PO Q6HR 9 Days #36 cap 11/09/24 Allergies Allergy/AdvReac Type Severity Reaction Status Date / Time No Known Allergies Allergy Verified 11/23/24 17:52 Review of Systems ROS Statement: Those systems with pertinent positive or pertinent negative responses have been documented in the HPI. ROS Other: All systems not noted in ROS Statement are negative. Past Medical History Past Medical History: Coronary Artery Disease (CAD), Chest Pain / Angina, Nadir ia, Diabetes Mellitus, Hearing Disorder / Deafness, Hyperlipidemia, Hypertension, Musculoskeletal Disorder Additional Past Medical History / Comment(s): CHRONIC BACK PAIN History of Any Multi-Drug Resistant Organisms: None Reported Past Surgical History: Heart Catheterization, Orthopedic Surgery Additional Past Surgical History / Comment(s): LT KNEE ARTHROSCOPY, lumbar epidural injection, vasectomy Past Anesthesia/Blood Transfusion Reactions: No Reported Reaction Past Psychological History: Anxiety, Depression Smoking Status: Former smoker, Never smoker Past Alcohol Use History: None Reported Past Drug Use History: None Reported - Past Family History Father Family Medical History: Musculoskeletal Disorder, Neurologic Disorder Additional Family Medical History / Comment(s): Father had Parkinsons. He is . Mother Family Medical History: Dementia Additional Family Medical History / Comment(s): Mother is . General Exam Limitations: no limitations General appearance: alert, in no apparent distress Head exam: Present: atraumatic, normocephalic, normal inspection Eye exam: Present: normal appearance, PERRL, EOMI. Absent: scleral icterus, conjunctival injection, periorbital swelling ENT exam: Present: normal exam, mucous membranes moist Neck exam: Present: normal inspection. Absent: tenderness, meningismus, lymphadenopathy Respiratory exam: Present: normal lung sounds bilaterally. Absent: respiratory distress, wheezes, rales, rhonchi, stridor Cardiovascular Exam: Present: regular rate, normal rhythm, normal heart sounds. Absent: systolic murmur, diastolic murmur, rubs, gallop, clicks GI/Abdominal exam: Present: soft, normal bowel sounds. Absent: distended, t enderness, guarding, rebound, rigid Extremities exam: Present: normal inspection, full ROM, normal capillary refill. Absent: tenderness, pedal edema, joint swelling, calf tenderness Back exam: Present: normal inspection Neurological exam: Present: alert, oriented X3, CN II-XII intact Psychiatric exam: Present: normal affect, normal mood Skin exam: Present: warm, dry, intact, normal color. Absent: rash Course Vital Signs 11/23/24 17:48 Temperature 97.5 F L Pulse Rate 116 H Respiratory 20 Rate Blood Pressure 122/82 O2 Sat by Pulse 94 L Oximetry - Reevaluation(s) Reevaluation #1: 11/23/24 20:31 Medical records reviewed Reevaluation #2: 11/23/24 20:31 Patient symptoms relatively unchanged still weak Reevaluation #3: 11/23/24 20:31 Patient informed of results questions answered Reevaluation #5: Differential Weakness: Hypoglycemia, shock, sepsis, hyponatremia, anemia, infection, DC, ETOH, adverse medicine reaction, overdose, stroke, this is not meant to be an all-inclusive list. - Consultations Consultation #1: Spoke with beni who agrees to admit this patient Medical Decision Making - Medical Decision Making 69 male for persistent weakness nausea vomiting diarrhea dehydration will admit for IV resuscitation replacing potassium, monitoring of kidney function - Lab Data Result diagrams: 11/23/24 18:26 11/23/24 18:26 Lab Results 11/23/24 11/23/24 11/23/24 Range/Units 18:06 18:26 18:26 WBC 6.64 (4.50-10.00) 10*3/uL RBC 4.59 (4.40-5.60) 10*6/uL Hgb 12.4 L (13.0-17.0) g/dL Hct 37.2 L (39.6-50.0) % MCV 81.0 (80.0-97.0) fL MCH 27.0 (27.0-32.0) pg MCHC 33.3 (32.0-37.0) g/dL Plt Count 442 H (140-440) 10*3/uL MPV 9.8 (9.5-12.2) fL Immature Gran % (Auto) 0.2 % Neutrophils % 52.9 % Lymphocytes % 29.5 % Monocytes % 13.7 % Eosinophils % 2.6 % Basophils % 1.1 % Immature Gran # 0.01 (0.00-0.04) 10*3/uL Neutrophils # 3.52 (1.80-7.70) 10*3/uL Lymphocytes # 1.96 (0.90-5.00) 10*3/uL Monocytes # 0.91 (0.20-1.00) 10*3/uL Eosinophils # 0.17 (0.04-0.35) 10*3/uL Basophils # 0.07 (0.00-0.10) 10*3/uL Sodium 136 L (137-145) mmol/L Potassium 2.8 L (3.5-5.1) mmol/L Chloride 101 (98-107) mmol/L Carbon Dioxide 13 L (22-30) mmol/L Anion Gap 22 mmol/L BUN 30 H (9-20) mg/dL Creatinine 2.38 H (0.66-1.25) mg/dL Est GFR (CKD-EPI)AfAm 31 (>60 ml/min/1.73 sqM) Est GFR (CKD-EPI)NonAf 26 (>60 ml/min/1.73 sqM) Glucose 147 H (74-99) mg/dL POC Glucose (mg/dL) 150 H (70-110) mg/dL POC Glu [employer] ID Belval Monae Plasma Lactic Acid Elvis (0.7-2.0) mmol/L Calcium 9.3 (8.4-10.2) mg/dL Phosphorus 3.8 (2.5-4.5) mg/dL Magnesium 1.9 (1.6-2.3) mg/dL Total Bilirubin 0.6 (0.2-1.3) mg/dL AST 19 (17-59) U/L ALT 19 (4-49) U/L Alkaline Phosphatase 194 H (38-126) U/L Ammonia (<30) umol/L Troponin I (0.000-0.034) ng/mL NT-Pro-B Natriuret Pep 752 pg/mL Total Protein 7.3 (6.3-8.2) g/dL Albumin 3.7 (3.5-5.0) g/dL Lipase 110 (23-300) U/L Urine Color Urine Appearance (Clear) Urine pH (5.0-8.0) Ur Specific [place] (1.001-1.035) Urine Protein (Negative) Urine Glucose (UA) (Negative) Urine Ketones (Negative) Urine Blood (Negative) Urine Nitrite (Negative) Urine Bilirubin (Negative) Urine Urobilinogen (<2.0) mg/dL Ur Leukocyte Esterase (Negative) Urine RBC (0-5) /hpf Urine WBC (0-5) /hpf Ur Squamous Epith Cells (0-4) /hpf Urine Bacteria (None) /hpf Urine Mucus (None) /hpf 05/20/25 05/20/25 05/20/25 Range/Units 18:26 18:26 18:57 WBC (4.50-10.00) 10*3/uL RBC (4.40-5.60) 10*6/uL Hgb (13.0-17.0) g/dL Hct (39.6-50.0) % MCV (80.0-97.0) fL MCH (27.0-32.0) pg MCHC (32.0-37.0) g/dL Plt Count (140-440) 10*3/uL MPV (9.5-12.2) fL Immature Gran % (Auto) % Neutrophils % % Lymphocytes % % Monocytes % % Eosinophils % % Basophils % % Immature Gran # (0.00-0.04) 10*3/uL Neutrophils # (1.80-7.70) 10*3/uL Lymphocytes # (0.90-5.00) 10*3/uL Monocytes # (0.20-1.00) 10*3/uL Eosinophils # (0.04-0.35) 10*3/uL Basophils # (0.00-0.10) 10*3/uL Sodium (137-145) mmol/L Potassium (3.5-5.1) mmol/L Chloride (98-107) mmol/L Carbon Dioxide (22-30) mmol/L Anion Gap mmol/L BUN (9-20) mg/dL Creatinine (0.66-1.25) mg/dL Est GFR (CKD-EPI)AfAm (>60 ml/min/1.73 sqM) Est GFR (CKD-EPI)NonAf (>60 ml/min/1.73 sqM) Glucose (74-99) mg/dL POC Glucose (mg/dL) (70-110) mg/dL POC Glu [employer] ID Plasma Lactic Acid Elvis 3.4 H* (0.7-2.0) mmol/L Calcium (8.4-10.2) mg/dL Phosphorus (2.5-4.5) mg/dL Magnesium (1.6-2.3) mg/dL Total Bilirubin (0.2-1.3) mg/dL AST (17-59) U/L ALT (4-49) U/L Alkaline Phosphatase (38-126) U/L Ammonia <9 (<30) umol/L Troponin I 0.016 (0.000-0.034) ng/mL NT-Pro-B Natriuret Pep pg/mL Total Protein (6.3-8.2) g/dL Albumin (3.5-5.0) g/dL Lipase (23-300) U/L Urine Color Light Yellow Urine Appearance Clear (Clear) Urine pH 6.5 (5.0-8.0) Ur Specific [place] 1.011 (1.001-1.035) Urine Protein Trace H (Negative) Urine Glucose (UA) Negative (Negative) Urine Ketones Negative (Negative) Urine Blood Negative (Negative) Urine Nitrite Negative (Negative) Urine Bilirubin Negative (Negative) Urine Urobilinogen <2.0 (<2.0) mg/dL Ur Leukocyte Esterase Large H (Negative) Urine RBC 9 H (0-5) /hpf Urine WBC 22 H (0-5) /hpf Ur Squamous Epith Cells <1 (0-4) /hpf Urine Bacteria Rare H (None) /hpf Urine Mucus Rare H (None) /hpf - EKG Data -: EKG Interpreted by Me (EKG is sinus 83 WV 232 QRS 112 QTc 467) - Radiology Data Radiology results: report reviewed (Chest x-ray and x-ray KUB negative for acute disease), image reviewed Disposition Clinical Impression: Urinary tract infection, Dehydration, Gastroenteritis, Weakness, JORGE (acute kidney injury) Disposition: ADMITTED IP TO THIS HOSP Condition: Fair Is patient prescribed a controlled substance at d/c from ED?: No Referrals: Frances Quigley MD [Primary Care Provider] - 1-2 days Time of Disposition: 20:30
[2024-11-23 18:08] LABS: Glucose,Whole Blood 150 mg/dL (70-110)
[2024-11-23] MEDS: ONDANSETRON 4 MG/2 ML VIAL IVP STA (18:36)
[2024-11-23] MEDS: SODIUM CHLORIDE 0.9% 1,000 ML IV ONE (18:36)
--- NOTE | 2024-11-23 18:41 | XR ---
EXAMINATION TYPE: XR chest 1V DATE OF EXAM: 11/23/2024 6:34 PM COMPARISON: Chest radiographs from 11/09/2024 TECHNIQUE: XR chest 1V Portable AP radiograph of the chest. CLINICAL INDICATION:Male, 69 years old with history of pain; FINDINGS: Lungs/Pleura: There is no evidence of pleural effusion, focal consolidation, or pneumothorax. Pulmonary vascularity: Unremarkable. Heart/mediastinum: Cardiomediastinal silhouette is unremarkable. Atherosclerotic calcifications are seen in the aorta. Musculoskeletal: No acute osseous pathology. Other findings: None Lines/Tubes: Iyitgi-x-[id number] projecting over the right hemithorax with distal tip projecting over the superior vena cava. IMPRESSION: No acute cardiopulmonary disease/process. [facility], , 11/23/2024 6:39 PM
--- NOTE | 2024-11-23 18:43 | XR ---
EXAMINATION TYPE: XR KUB DATE OF EXAM: 11/23/2024 COMPARISON: KUB radiograph 01/14/2024 HISTORY: Pain TECHNIQUE: Single supine KUB image of the abdomen is obtained FINDINGS: Small bowel demonstrates no evidence for dilatation or air fluid levels. Gas and fecal material is seen in non-distended colon. No convincing evidence for pneumoperitoneum. No definitive renal or ureteral calculus identified. Pelvic phleboliths. Vascular sclerosis. The lung bases are clear. The osseous structures are intact. Mild levoscoliotic curvature of the thoracolumbar spine. IMPRESSION: Overall nonobstructive bowel gas pattern. [facility], , 11/23/2024 6:41 PM
[2024-11-23 18:52] LABS: Basophils # (A) 0.07 10*3/uL (0.00-0.10); Basophils % (A) 1.1 %; Eosinophils # (A) 0.17 10*3/uL (0.04-0.35); Eosinophils % (A) 2.6 %; HCT 37.2 % (39.6-50.0); HGB 12.4 g/dL (13.0-17.0); Lymphocytes # (A) 1.96 10*3/uL (0.90-5.00); Lymphocytes % (A) 29.5 %; MCHC 33.3 g/dL (32.0-37.0); Mean Platelet Volume 9.8 fL (9.5-12.2); Monocytes # (A) 0.91 10*3/uL (0.20-1.00); Monocytes % (A) 13.7 %; Neutrophils # (A) 3.52 10*3/uL (1.80-7.70); Neutrophils % (A) 52.9 %; Platelet Count 442 10*3/uL (140-440); RBC 4.59 10*6/uL (4.40-5.60); WBC 6.64 10*3/uL (4.50-10.00)
[2024-11-23 19:05] LABS: AST 19 U/L (17-59); African American GFR (CKD) 31 (>60 ml/min/1.73 sqM); Albumin 3.7 g/dL (3.5-5.0); Alkaline Phosphatase 194 U/L (38-126); Anion Gap 22 mmol/L; Blood Urea Nitrogen 30 mg/dL (9-20); Calcium 9.3 mg/dL (8.4-10.2); Carbon Dioxide 13 mmol/L (22-30); Chloride 101 mmol/L (98-107); Glucose 147 mg/dL (74-99); Lipase 110 U/L (23-300); Magnesium 1.9 mg/dL (1.6-2.3); Non-African American GFR(CKD) 26 (>60 ml/min/1.73 sqM); Phosphorus 3.8 mg/dL (2.5-4.5); Potassium 2.8 mmol/L (3.5-5.1); Sodium 136 mmol/L (137-145); Total Bilirubin 0.6 mg/dL (0.2-1.3); Total Protein 7.3 g/dL (6.3-8.2)
[2024-11-23 19:14] LABS: NT-Pro-B-Type Natriuretic Pept 752 pg/mL
[2024-11-23 19:17] LABS: ALT 19 U/L (4-49)
[2024-11-23 19:19] LABS: Lactic Acid, Venous 3.4 mmol/L (0.7-2.0)
[2024-11-23 19:20] LABS: Appearance,Urine Clear (Clear); Bacteria,Urine Rare /hpf; Bilirubin,Urine Negative (Negative); Blood,Urine Negative (Negative); Color,Urine Light Yellow; Glucose,Urine (UA) Negative (Negative); Ketones,Urine Negative (Negative); Leukocyte Esterase,Urine Large (Negative); Mucus,Urine Rare /hpf; Nitrite,Urine Negative (Negative); PH, Urine 6.5 (5.0-8.0); Protein,Urine Trace (Negative); RBC,Urine 9 /hpf (0-5); Specific Gravity,Urine 1.011 (1.001-1.035); Squamous Epithelial Cell,Urine <1 /hpf (0-4); Urobilinogen,Urine <2.0 mg/dL (<2.0); WBC,Urine 22 /hpf (0-5)
[2024-11-23] MEDS ORDERED: MORPHINE SULFATE 4 MG/ML SYRINGE IV PRN (20:28)
[2024-11-23] MEDS ORDERED: ONDANSETRON 4 MG/2 ML VIAL IVP PRN (20:28)
[2024-11-23] MEDS ORDERED: NALOXONE 0.4 MG/ML 1 ML VIAL IV PRN (20:28)
[2024-11-23] MEDS: MAGNESIUM OXIDE 400 MG TAB PO STA (20:44)
[2024-11-23] MEDS: POTASSIUM BICARBONATE/CIT AC 20 MEQ TABLET.EFF PO ONE ×2 (20:46)
[2024-11-23] MEDS: SODIUM CHLORIDE 0.9% 1,000 ML IV SCH (20:47)
[2024-11-23] MEDS: SODIUM CHLORIDE 0.9% 500 ML 500 ML IV ONE (20:48)
[2024-11-23 22:07] VITALS: BP 133/86; PULSE 98; TEMP 98.6
[2024-11-23] MEDS: MELATONIN 5 MG TABLET PO SCH (22:18)
[2024-11-23] MEDS: traZODone HCL 100 MG TAB PO SCH (22:18)
[2024-11-23] MEDS: LACTATED RINGERS 1,000 ML IV SCH (22:18)
--- NOTE | 2024-11-23 22:37 | P.HPIM ---
History of Present Illness H&P Date: 11/23/24 History of present illness; 69-year-old man with PMH of CAD, dementia, diabetes mellitus, hypertension and hyperlipidemia who presents emergency ferment with worsening nausea, vomiting and abdominal pain with associated shortness of breath. He reports having had multiple ED visits as well as multiple primary care visits within the last week, most recently yesterday. He denies any fever or chest pain. Labratory review: -WBC 6.64, hemoglobin 12.4, hematocrit 37.2, platelet 442; sodium 136, potassium 2.8, bicarb 13, BUN 30, creatinine 2.38, lactic acid 3.4, calcium 9.3, phosphorus 3.8, magnesium 1.9, total bilirubin 0.6, AST 19, ALT 19, alkaline phosphatase 194; ammonia <9; troponin 0.016, proBNP 752, lipase 110 -Urinalysis with large amount of leukocyte esterase, <1 squamous epithelial c ells Imaging: -Chest x-ray done in the ER independently read and interpreted showed no acute cardiopulmonary disease/process KUB x-ray showed nonobstructive bowel gas pattern -EKG done in the ER independently read and interpreted showed heart rate of 83, sinus rhythm, no ST segment elevation or depression seen, no T-wave inversions seen. Vitals: - Blood pressure 122/82, heart rate 116, respiratory 20, SpO2 94% on room air Patient admitted to internal medicine service REVIEW OF SYSTEMS: Pertinent positives and negatives noted in HPI. The rest of the 14-point review of systems is negative. Physical Exam: General: nontoxic, no distress, appears at stated age Derm: warm, dry, intact Head: atraumatic, normocephalic, symmetric Eyes: EOMI, anicteric sclera Mouth: no lip lesion, mucus membranes moist Cardiovascular: S1 S2 reg, no murmur, rubs, or gallops Lungs: CTA bilateral, no rales, no accessory muscle use Abdominal: soft, non-tender to palpataion, no appreciable organomegaly Extremities: no gross muscle atrophy, no edema, no contractures Neuro: Alert, Oriented, CNII-XII grossly intact, gait normal Psych: well appearing, appropriate affect Assessment and plan #Sepsis #Lactic acidosis Continue LR 100 cc/h #JORGE, on stage IV CKD likely secondary to poor oral intake #Hypokalemia - Received 80 mEq potassium bicarbonate in the ED - Continue to monitor electrolytes - Continue on LR at 100 cc/h - Bladder/kidney ultrasound ordered, currently pending - Urinalysis read and reviewed, results above - #Type II NSTEMI, possibly secondary to dehydration - Initial troponin 0.016 - Continue on LR at 100 cc/h - EKG reviewed GI prophylaxis: DVT prophylaxis: The patient is admitted with an anticipated more than than 2 midnight stay for evaluation of CODE STATUS: Full code Discussed with: Patient Anticipated discharge place: Pending clinical course Dictation was produced using [employer] dictation software. please excuse any grammatical, word or spelling errors. Peter Mendoza MD PGY-1 IM Past Medical History Past Medical History: Coronary Artery Disease (CAD), Chest Pain / Angina, Dementia, Diabetes Mellitus, Hearing Disorder / Deafness, Hyperlipidemia, Hypertension, Musculoskeletal Disorder Additional Past Medical History / Comment(s): CHRONIC BACK PAIN History of Any Multi-Drug Resistant Organisms: None Reported Past Surgical History: Heart Catheterization, Orthopedic Surgery Additional Past Surgical History / Comment(s): LT KNEE ARTHROSCOPY, lumbar epidural injection, vasectomy Past Anesthesia/Blood Transfusion Reactions: No Reported Reaction Past Psychological History: Anxiety, Depression Smoking Status: Former smoker, Never smoker Past Alcohol Use History: None Reported Past Drug Use History: None Reported - Past Family History Father Family Medical History: Musculoskeletal Disorder, Neurologic Disorder Additional Family Medical History / Comment(s): Father had Parkinsons. He is . Mother Family Medical History: Dementia Additional Family Medical History / Comment(s): Mother is . Medications and Allergies Home Medications Medication Instructions Recorded Confirmed Type traZODone HCL [Desyrel] 100 mg PO HS 11/02/21 11/23/24 History Aspirin [Adult Low Dose Aspirin EC] 81 mg PO DAILY 04/28/23 11/23/24 History Rosuvastatin [Crestor] 10 mg PO DAILY 06/24/23 11/23/24 History Ciprofloxacin HCl [Cipro] 500 mg PO BID 11/23/24 11/23/24 History Insulin Degludec [Tresiba 27 units SQ DAILY 11/23/24 11/23/24 History Flextouch U-100 Pen] Melatonin 10 mg PO HS 11/23/24 11/23/24 History PARoxetine HCL [Paxil] 40 mg PO DAILY 11/23/24 11/23/24 History Tirzepatide [Mounjaro] 7.5 mg SQ WE@2100 11/23/24 11/23/24 History Allergies Allergy/AdvReac Type Severity Reaction Status Date / Time No Known Allergies Allergy Verified 11/23/24 20:50 Physical Exam Vitals: Vital Signs Temp Pulse Resp BP Pulse Ox 11/23/24 17:48 97.5 F L 116 H 20 122/82 94 L Intake and Output 11/23/24 11/23/24 11/23/24 06:59 14:59 22:59 Other: Weight 81.647 kg Results CBC & Chem 7: 11/23/24 18:26 11/23/24 18:26 Labs: Abnormal Lab Results - Last 24 Hours (Table) 11/23/24 11/23/24 11/23/24 Range/Units 18:06 18:26 18:26 Hgb 12.4 L (13.0-17.0) g/dL Hct 37.2 L (39.6-50.0) % Plt Count 442 H (140-440) 10*3/uL Sodium 136 L (137-145) mmol/L Potassium 2.8 L (3.5-5.1) mmol/L Carbon Dioxide 13 L (22-30) mmol/L BUN 30 H (9-20) mg/dL Creatinine 2.38 H (0.66-1.25) mg/dL Glucose 147 H (74-99) mg/dL POC Glucose (mg/dL) 150 H (70-110) mg/dL Plasma Lactic Acid Elvis (0.7-2.0) mmol/L Alkaline Phosphatase 194 H (38-126) U/L Urine Protein (Negative) Ur Leukocyte Esterase (Negative) Urine RBC (0-5) /hpf Urine WBC (0-5) /hpf Urine Bacteria (None) /hpf Urine Mucus (None) /hpf 11/23/24 11/23/24 Range/Units 18:26 18:57 Hgb (13.0-17.0) g/dL Hct (39.6-50.0) % Plt Count (140-440) 10*3/uL Sodium (137-145) mmol/L Potassium (3.5-5.1) mmol/L Carbon Dioxide (22-30) mmol/L BUN (9-20) mg/dL Creatinine (0.66-1.25) mg/dL Glucose (74-99) mg/dL POC Glucose (mg/dL) (70-110) mg/dL Plasma Lactic Acid Elvis 3.4 H* (0.7-2.0) mmol/L Alkaline Phosphatase (38-126) U/L Urine Protein Trace H (Negative) Ur Leukocyte Esterase Large H (Negative) Urine RBC 9 H (0-5) /hpf Urine WBC 22 H (0-5) /hpf Urine Bacteria Rare H (None) /hpf Urine Mucus Rare H (None) /hpf
--- NOTE | 2024-11-23 22:41 | P.DS ---
Providers Date of admission: 11/23/24 20:30 Attending physician: Bob Ya MD Consults: 11/23/24 20:28 Consult Physician Routine Consulting Provider: Cb Lora Consult Reason/Comments: jorge Do you want consulting provider notified?: Yes Primary care physician: [facility] Course: This patient is elected to leave AGAINST MEDICAL ADVICE. In my opinion, the patient has capacity to leave AMA. The patient is clinically sober, free from distracting injury, appears to have intact insight and judgment and reason, in my opinion has capacity make decisions. I explained to the patient the symptoms may represent sepsis, JORGE in the setting of stage IV chronic kidney disease, hypokalemia all possibly secondary to poor oral intake as a result of his persistent nausea and vomiting and the patient verbalized understanding of my concerns. I had a discussion with the patient about their workup and results and that their symptoms will continue to persist as result of undergoing minimal treatment while present in the emergency department. I informed the patient that the neck step in diagnosis and treatment would be continuation of fluid, further imaging studies to complete workup, as well as close monitoring of electrolytes, they verbalized understanding of this as well. I explained the risk of leaving without further workup or treatment which included reasonable foreseeable complications such as , serious injury, permanent disability, and renal failure. I also offered alternatives to the parting AMA such as assigning the patient to a different provider or an alternative workup pathway. Patient is refusing any further care, continues to state his desire to go home and be in his own bed, and his leave against medical vice. I am unable to convince the patient to stay. I have asked him to return to soon as possible to complete their evaluation, and also explained that they are welcome to return to the ED if they desire further evaluation whenever they choose. I have asked the patient to follow-up with her primary care doctor soon as possible. I have answered all their questions and the patient signed AMA paperwork. Patient Condition at Discharge: Serious Plan - Discharge Summary New Discharge Prescriptions: No Action Aspirin [Adult Low Dose Aspirin EC] 81 mg PO DAILY Ciprofloxacin HCl [Cipro] 500 mg PO BID traZODone HCL [Desyrel] 100 mg PO HS Rosuvastatin [Crestor] 10 mg PO DAILY Melatonin 10 mg PO HS Insulin Degludec [Tresiba Flextouch U-100 Pen] 27 units SQ DAILY Tirzepatide [Mounjaro] 7.5 mg SQ WE@2100 PARoxetine HCL [Paxil] 40 mg PO DAILY Discharge Medication List traZODone HCL [Desyrel] 100 mg PO HS 11/02/21 [History] Aspirin [Adult Low Dose Aspirin EC] 81 mg PO DAILY 04/28/23 [History] Rosuvastatin [Crestor] 10 mg PO DAILY 06/24/23 [History] Ciprofloxacin HCl [Cipro] 500 mg PO BID 11/23/24 [History] Insulin Degludec [Tresiba Flextouch U-100 Pen] 27 units SQ DAILY 11/23/24 [History] Melatonin 10 mg PO HS 11/23/24 [History] PARoxetine HCL [Paxil] 40 mg PO DAILY 11/23/24 [History] Tirzepatide [Mounjaro] 7.5 mg SQ WE@2100 11/23/24 [History] Follow up Appointment(s)/Referral(s): Frances Quigley MD [Primary Care Provider] - 1-2 days Discharge Disposition: LEFT AGAINST MEDICAL ADVICE
[2024-11-24] MEDS ORDERED: MAGNESIUM OXIDE 400 MG TAB PO SCH (09:00)
== END 2024-11-23 22:27 | disposition left against medical advice (07) ==
LOC: EC 17:46 → 6NMEDSUR 20:30
PROVIDERS: ADMIT Internal Medicine; ATTEND Internal Medicine
DX: A41.9 Sepsis, unspecified organism (principal); N39.0 Urinary tract infection, site not specified; E87.20 Acidosis, unspecified; E86.0 Dehydration; N17.9 Acute kidney failure, unspecified; I12.9 Hypertensive chronic kidney disease with stage 1 through stage 4 chronic kidney disease, or unspecified chronic kidney disease; N18.4 Chronic kidney disease, stage 4 (severe); E11.22 Type 2 diabetes mellitus with diabetic chronic kidney disease; K52.9 Noninfective gastroenteritis and colitis, unspecified; R53.1 Weakness; E87.6 Hypokalemia; I21.A1 Myocardial infarction type 2; I25.10 Atherosclerotic heart disease of native coronary artery without angina pectoris; E78.5 Hyperlipidemia, unspecified; F03.94 Unspecified dementia, unspecified severity, with anxiety; F32.A Depression, unspecified; Z87.891 Personal history of nicotine dependence; Z79.4 Long term (current) use of insulin; Z79.52 Long term (current) use of systemic steroids; Z79.82 Long term (current) use of aspirin; Z79.85 Long-term (current) use of injectable non-insulin antidiabetic drugs; Z79.899 Other long term (current) drug therapy; Z53.29 Procedure and treatment not carried out because of patient's decision for other reasons
CPT/HCPCS: 96361; 96365; 96375; 99285; 36415; 93005; 83880; 80053; 82140; 83605; 83690; 83735; 84100; 84484; 85025; 81001; 71045; 74018; G0378; J2405; J0696